=== PATIENT | male | born 1970 | race Caucasian/White ===

== ENCOUNTER 2016-08-14 08:36 | Inpatient (IN) | payer BC, OTHER ==
[2016-08-14] MEDS ORDERED: ONDANSETRON 4 MG/2 ML VIAL IVP STA (09:11)
[2016-08-14] MEDS ORDERED: SODIUM CHLORIDE 0.9% 2,000 ML IV STA (09:11)
--- NOTE | 2016-08-14 09:28 | ED ---
Nausea/Vomiting/Diarrhea HPI - General Chief complaint: Nausea/Vomiting/Diarrhea Stated complaint: vomiting, pain in chest Time Seen by Provider: 08/14/16 09:07 Source: patient, RN notes reviewed Mode of arrival: ambulatory Limitations: no limitations - History of Present Illness Initial comments: 46-year-old male presents emergency Department chief complaints of nausea vomiting abdominal pain, chest pressure. Patient states that he has been getting sick daily for the last few months but states over the last few days it has severely progressively has severe right-sided abdominal pain. He also noticed the pressure in his chest but states it seems to be exacerbated by his vomiting. Patient denies any hematemesis or coffee-ground emesis. Patient states he drinks approximately 1 pint per day for the last 6 months. Patient states he was sober prior to that for over a year. Patient states that he has not seen her primary care physician for any of his health problems as he only recently got his insurance. Patient denies any dysuria or hematuria though he states his urine is very dark. Patient said no prior abdominal surgeries and has no cardiac history. - Related Data Home Medications Medication Instructions Recorded Confirmed No Known Home Medications [No 08/14/16 08/14/16 Known Home Medications] Allergies Allergy/AdvReac Type Severity Reaction Status Date / Time bupropion HCl Allergy Unknown Verified 08/14/16 09:41 [From Wellbutrin] Penicillins Allergy Unknown Verified 08/14/16 09:41 Childhood Review of Systems ROS Statement: Those systems with pertinent positive or pertinent negative responses have been documented in the HPI. ROS Other: All systems not noted in ROS Statement are negative. Past Medical History Past Medical History: No Reported History History of Any Multi-Drug Resistant Organisms: None Reported Past Surgical History: Hernia Repair Past Psychological History: Anxiety, Depression Smoking Status: Current every day smoker Past Alcohol Use History: Daily, Heavy Past Drug Use History: None Reported General Exam Limitations: no limitations General appearance: alert, in no apparent distress Eye exam: Present: normal appearance, PERRL, EOMI. Absent: scleral icterus, conjunctival injection, periorbital swelling ENT exam: Present: normal exam, normal oropharynx, mucous membranes moist, TM's normal bilaterally, normal external ear exam Neck exam: Present: normal inspection. Absent: tenderness, meningismus, lymphadenopathy Respiratory exam: Present: normal lung sounds bilaterally. Absent: respiratory distress, wheezes, rales, rhonchi, stridor, chest wall tenderness Cardiovascular Exam: Present: regular rate, normal rhythm, normal heart sounds. Absent: systolic murmur, diastolic murmur, rubs, gallop, clicks GI/Abdominal exam: Present: soft, tenderness (Moderate right-sided abdominal tenderness), normal bowel sounds, organomegaly (Hepatomegaly ). Absent: distended, guarding, rebound, rigid Back exam: Absent: CVA tenderness (R), CVA tenderness (L) Neurological exam: Present: alert, oriented X3, CN II-XII intact Skin exam: Present: warm, dry, intact, normal color. Absent: rash Course Vital Signs 08/14/16 08/14/16 08:57 09:22 Temperature 98.3 F Pulse Rate 116 H 105 H Respiratory 18 18 Rate Blood Pressure 129/86 152/98 O2 Sat by Pulse 98 98 Oximetry Medical Decision Making - Lab Data Result diagrams: 08/14/16 09:08 08/14/16 09:08 Lab Results 08/14/16 08/14/16 08/14/16 Range/Units 09:08 09:08 09:08 WBC 8.7 (3.8-10.6) k/uL RBC 4.15 L (4.30-5.90) m/uL Hgb 15.5 (13.0-17.5) gm/dL Hct 45.9 (39.0-53.0) % MCV 110.7 H (80.0-100.0) fL MCH 37.4 H (25.0-35.0) pg MCHC 33.8 (31.0-37.0) g/dL RDW 14.7 (11.5-15.5) % Plt Count 138 L (150-450) k/uL Neutrophils % 78 % Lymphocytes % 12 % Monocytes % 7 % Eosinophils % 1 % Basophils % 1 % Neutrophils # 6.7 (1.3-7.7) k/uL Lymphocytes # 1.0 (1.0-4.8) k/uL Monocytes # 0.6 (0-1.0) k/uL Eosinophils # 0.1 (0-0.7) k/uL Basophils # 0.1 (0-0.2) k/uL Macrocytosis Marked Sodium 138 (137-145) mmol/L Potassium 3.6 (3.5-5.1) mmol/L Chloride 91 L (98-107) mmol/L Carbon Dioxide 18 L (22-30) mmol/L Anion Gap 29 mmol/L BUN 9 (9-20) mg/dL Creatinine 0.68 (0.66-1.25) mg/dL Est GFR (MDRD) Af Amer >60 (>60 ml/min/1.73 sqM) Est GFR (MDRD) Non-Af >60 (>60 ml/min/1.73 sqM) Glucose 123 H (74-99) mg/dL Calcium 9.7 (8.4-10.2) mg/dL Magnesium 1.7 (1.6-2.3) mg/dL Total Bilirubin 7.4 H (0.2-1.3) mg/dL AST 214 H (17-59) U/L ALT 112 H (21-72) U/L Alkaline Phosphatase 225 H (38-126) U/L Troponin I <0.012 (0.000-0.034) ng/mL Total Protein 8.7 H (6.3-8.2) g/dL Albumin 5.1 H (3.5-5.0) g/dL Amylase 73 (30-110) U/L Lipase 114 (23-300) U/L Urine Color Urine Appearance (Clear) Urine pH (5.0-8.0) Ur Specific [place] (1.001-1.035) Urine Protein (Negative) Urine Glucose (UA) (Negative) Urine Ketones (Negative) Urine Blood (Negative) Urine Nitrite (Negative) Urine Bilirubin (Negative) Urine Urobilinogen (<2.0) mg/dL Ur Leukocyte Esterase (Negative) Urine WBC (0-5) /hpf Ur Squamous Epith Cells (0-4) /hpf Urine Bacteria (None) /hpf Hyaline Casts (0-2) /lpf Urine Mucus (None) /hpf Serum Alcohol <10 mg/dL 08/14/16 Range/Units 09:08 WBC (3.8-10.6) k/uL RBC (4.30-5.90) m/uL Hgb (13.0-17.5) gm/dL Hct (39.0-53.0) % MCV (80.0-100.0) fL MCH (25.0-35.0) pg MCHC (31.0-37.0) g/dL RDW (11.5-15.5) % Plt Count (150-450) k/uL Neutrophils % % Lymphocytes % % Monocytes % % Eosinophils % % Basophils % % Neutrophils # (1.3-7.7) k/uL Lymphocytes # (1.0-4.8) k/uL Monocytes # (0-1.0) k/uL Eosinophils # (0-0.7) k/uL Basophils # (0-0.2) k/uL Macrocytosis Sodium (137-145) mmol/L Potassium (3.5-5.1) mmol/L Chloride (98-107) mmol/L Carbon Dioxide (22-30) mmol/L Anion Gap mmol/L BUN (9-20) mg/dL Creatinine (0.66-1.25) mg/dL Est GFR (MDRD) Af Amer (>60 ml/min/1.73 sqM) Est GFR (MDRD) Non-Af (>60 ml/min/1.73 sqM) Glucose (74-99) mg/dL Calcium (8.4-10.2) mg/dL Magnesium (1.6-2.3) mg/dL Total Bilirubin (0.2-1.3) mg/dL AST (17-59) U/L ALT (21-72) U/L Alkaline Phosphatase (38-126) U/L Troponin I (0.000-0.034) ng/mL Total Protein (6.3-8.2) g/dL Albumin (3.5-5.0) g/dL Amylase (30-110) U/L Lipase (23-300) U/L Urine Color Dark Brown Urine Appearance Clear (Clear) Urine pH 6.0 (5.0-8.0) Ur Specific [place] 1.024 (1.001-1.035) Urine Protein 1+ H (Negative) Urine Glucose (UA) Negative (Negative) Urine Ketones 4+ H (Negative) Urine Blood Negative (Negative) Urine Nitrite Negative (Negative) Urine Bilirubin 2+ H (Negative) Urine Urobilinogen 12.0 (<2.0) mg/dL Ur Leukocyte Esterase Negative (Negative) Urine WBC 2 (0-5) /hpf Ur Squamous Epith Cells <1 (0-4) /hpf Urine Bacteria Rare H (None) /hpf Hyaline Casts 61 H (0-2) /lpf Urine Mucus Few H (None) /hpf Serum Alcohol mg/dL Disposition Clinical Impression: Dehydration, Alcoholic hepatitis, Hyperbilirubinemia, Nausea & vomiting Disposition: ADMITTED IP TO THIS HOSP Condition: Fair Referrals: None,Stated [Primary Care Provider] - 1-2 days
[2016-08-14 09:35] LABS: Basophils # (A) 0.1 k/uL (0-0.2); Basophils % (A) 1 %; CH 37.7; CHCM 34.2; Eosinophils # (A) 0.1 k/uL (0-0.7); Eosinophils % (A) 1 %; HCT 45.9 % (39.0-53.0); HDW 2.07; HGB 15.5 gm/dL (13.0-17.5); Luc # (Auto) 0.13; Luc % (Auto) 2; Lymphocytes % (A) 12 %; MCH 37.4 pg (25.0-35.0); MCHC 33.8 g/dL (31.0-37.0); MCV 110.7 fL (80.0-100.0); Macrocytosis Marked; Mean Platelet Volume 8.4; Monocytes # (A) 0.6 k/uL (0-1.0); Monocytes % (A) 7 %; Neutrophils # (A) 6.7 k/uL (1.3-7.7); Neutrophils % (A) 78 %; RBC 4.15 m/uL (4.30-5.90); RDW 14.7 % (11.5-15.5); WBC 8.7 k/uL (3.8-10.6); WBC (Perox) 8.55
[2016-08-14 09:48] LABS: ALT 112 U/L (21-72); AST 214 U/L (17-59); Alcohol <10 mg/dL; Alkaline Phosphatase 225 U/L (38-126); Amylase 73 U/L (30-110); Anion Gap 29 mmol/L; Appearance,Urine Clear (Clear); Bacteria,Urine Rare /hpf; Bilirubin,Urine 2+ (Negative); Blood Urea Nitrogen 9 mg/dL (9-20); Calcium 9.7 mg/dL (8.4-10.2); Carbon Dioxide 18 mmol/L (22-30); Chloride 91 mmol/L (98-107); Glucose 123 mg/dL (74-99); Glucose,Urine (UA) Negative (Negative); Ketones,Urine 4+ (Negative); Leukocyte Esterase,Urine Negative (Negative); Magnesium 1.7 mg/dL (1.6-2.3); Mucus,Urine Few /hpf; Nitrite,Urine Negative (Negative); Non-African American GFR(MDRD) >60 (>60 ml/min/1.73 sqM); Particle Count 5565; Potassium 3.6 mmol/L (3.5-5.1); Protein,Urine 1+ (Negative); Sodium 138 mmol/L (137-145); Specific Gravity,Urine 1.024 (1.001-1.035); Squamous Epithelial Cell,Urine <1 /hpf (0-4); Total Bilirubin 7.4 mg/dL (0.2-1.3); Total Protein 8.7 g/dL (6.3-8.2); UA Billing (MACRO vs. MICRO) MICRO; WBC,Urine 2 /hpf (0-5)
--- NOTE | 2016-08-14 09:48 | XR ---
EXAMINATION TYPE: XR chest 2V DATE OF EXAM: 08/14/2016 COMPARISON: Chest x-ray July 05, 2015. HISTORY: Chest pain with nausea and vomiting. TECHNIQUE: Frontal and lateral views of the chest are obtained. FINDINGS: There is no focal air space opacity, pleural effusion, or pneumothorax seen. The cardiac silhouette size is within normal limits. The osseous structures are intact. IMPRESSION: No acute cardiopulmonary process. No significant change from prior.
--- NOTE | 2016-08-14 09:49 | XR ---
EXAMINATION TYPE: XR KUB DATE OF EXAM: 08/14/2016 CLINICAL HISTORY: Abdominal pain with nausea and vomiting for 6 months. TECHNIQUE: 3 upright KUB images of the abdomen are obtained COMPARISON: None. FINDINGS: There is some paucity of bowel gas. Gas is seen in nondistended stomach. Gas is seen in sli ghtly prominent but not suspiciously distended small bowel loops in the mid to lower abdomen. Additio nal gas is seen in nondistended colonic loops in the periphery of the pelvis. No pneumoperitoneum is identified. No suspicious calcifications are seen. Visualized osseous structures are intact. IMPRESSION: Overall nonspecific but favor nonobstructive bowel gas pattern.
--- NOTE | 2016-08-14 11:09 | US ---
EXAMINATION TYPE: US abdomen limited DATE OF EXAM: 08/14/2016 COMPARISON: NONE CLINICAL HISTORY: Pain, Nausea/vomiting x 2 weeks. Chest pain.. EXAM MEASUREMENTS: Liver Length: 19.6 cm Gallbladder Wall: 0.1 cm CBD: 0.4 cm Right Kidney: 11.8 x 5.6 x 4.6 cm Pancreas: wnl, tail obscured by bowel gas Liver: hyperechoic, heterogeneous. Partially obscured by bowel gas causing sub optimal visualization overall. Gallbladder: wnl Evidence for sonographic Daniel's sign: no CBD: wnl Right Kidney: wnl Visualized pancreas is heterogeneous without worrisome mass or ductal dilatation. Visualized liver is heterogeneously hyperechoic in appearance without intrahepatic ductal dilatation. Evaluation for foc al masses suboptimal due to the heterogeneity. Finding likely on basis of diffuse fatty infiltration. Gallbladder appears within normal limits. IMPRESSION: No gallstones or ultrasound evidence for acute cholecystitis.
[2016-08-14] MEDS ORDERED: PANTOPRAZOLE 40 MG/10 ML VIAL IVP STA (12:33)
[2016-08-14] MEDS ORDERED: LORazepam 2 MG/ML SYRINGE IV PRN ×3 (12:36)
[2016-08-14] MEDS ORDERED: NALOXONE 0.4 MG/ML 1 ML VIAL IV PRN (12:37)
[2016-08-14] MEDS ORDERED: ONDANSETRON 4 MG/2 ML VIAL IVP PRN (12:37)
[2016-08-14] MEDS ORDERED: SODIUM CHLORIDE 0.9% 1,000 ML with MVI, ADULT NO.4 WITH VIT K 10 ML, THIAMINE 100 MG, F... IV ONE ×4 (12:45)
[2016-08-14 16:55] LABS: INR 1.3 (<1.1); Prothrombin Time 12.8 sec (9.0-12.0)
[2016-08-14] MEDS: THIAMINE 100 MG TAB PO SCH (17:12)
[2016-08-14] MEDS: NICOTINE 21MG/24HR PATCH TRANSDERM SCH (17:13)
[2016-08-14 17:19] LABS: Hepatitis B Surface Ag Index 0.06
[2016-08-14 17:24] LABS: Hepatitis B Core IgM Index 0.02
[2016-08-14 17:36] LABS: Hepatitis C Virus IgG Ab Negative (Negative); Hepatitis C Virus IgG Index 0.01
[2016-08-14] MEDS: SODIUM CHLORIDE 0.9% 1,000 ML IV SCH ×2 (18:33→23:28)
[2016-08-14] MEDS: PANTOPRAZOLE 40 MG/10 ML VIAL IVP SCH (21:52)
--- NOTE | 2016-08-14 22:55 | HP ---
DATE OF ADMISSION: 08/14/2016 46-year-old came in with nausea, vomiting, abdominal pain with coffee-ground emesis. Patient's last alcoholic drink was a couple days ago. Does drink every day one pint of vodka every day. Patient is complaining of epigastric abdominal pain and burning sensation. Patient apparently complained of right-sided abdominal pain for which ultrasound of the abdomen was obtained which did not show any nephrolithiasis. Patient is willing to quit alcohol and patient is admitted for alcohol withdrawal. Patient is on Protonix IV b.i.d. Patient probably has severe alcoholic gastritis and alcoholic hepatitis. Patient denied any fever, chills, the patient denied any nausea, vomiting and denied any diarrhea. REVIEW OF SYSTEMS: GENERAL: The patient has been shaking since his last drink was a couple days ago. Patient is undergoing withdrawals at this point of time, quite weak. HEENT: No recent visual problems or hearing problems. Denied any sore throat. CARDIOVASCULAR: No chest pain, orthopnea, PND, no palpitations, no syncope. PULMONARY: No shortness of breath, no cough, no hemoptysis. GASTROINTESTINAL: As described in history of present illness. NEUROLOGICAL: No headaches, no weakness, no numbness. HEMATOLOGICAL: Denies any bleeding or petechiae. GENITOURINARY: Denies any burning micturition, frequency, or urgency. MUSCULOSKELETAL/RHEUMATOLOGICAL: Denies any joint pain, swelling, or any muscle pain. ENDOCRINE: Denies any polyuria or polydipsia. The rest of the 14 point review of systems is negative. HOME MEDICATIONS: None. ALLERGIES: ALLERGY TO BUPROPION AND PENICILLINS. PAST MEDICAL HISTORY: Hernia repair and patient does smoke 1 pack per day. Anxiety, depression. Patient does drink 1 pint of alcohol as mentioned above. Denied any IV drug use. FAMILY HISTORY: Significant for hypertension. PHYSICAL EXAMINATION: Temperature 97.3, pulse of 99, respiratory rate of 18, blood pressure is 107/56, saturating at 98% on room air. GENERAL: The patient is tremulous, alert and oriented x3, able to give me a good history. HEENT: Pupils are round and equally reacting to light. EOMI. Patient has significant scleral icterus. No conjunctival pallor. Normocephalic, atraumatic. No pharyngeal erythema. No thyromegaly. CARDIOVASCULAR: S1 and S2 present. No murmurs, rubs, or gallops. PULMONARY: Chest is clear to auscultation, no wheezing or crackles. ABDOMEN: Soft, nontender, nondistended, normoactive bowel sounds. No palpable organomegaly. MUSCULOSKELETAL: No joint swelling or deformity. EXTREMITIES: No cyanosis, clubbing, or pedal edema. NEUROLOGICAL: Gross neurological examination did not reveal any focal deficits. SKIN: No rashes. LABORATORY DATA: CBC, CMP are abnormal for elevated MCV of 110.7 secondary to alcoholism. Bicarbonate of 18. Anion gap of 10 and we will obtain lactic acid level and elevated bilirubin of 7.4, AST is 214, ALT is 112. Alkaline phosphatase 225. UA 1+ protein, 4+ ketones, 2+ bilirubin and I do not believe patient does not have any UTI symptoms. ASSESSMENT AND PLAN: 1. Acute alcoholic hepatitis. We are leading to elevated bilirubin. Will repeat comprehensive metabolic profile tomorrow again and it is expected to improve once he quits alcohol. Patient is willing to quit alcohol. His alcohol ( ) a couple days ago. 2. Alcohol withdrawal. Patient will be on Ativan/CIWA protocol, thiamine, multivitamin supplementation. 3. Anion gap metabolic acidosis secondary to ( ) of alcohol and can have lactic acidosis too from his severe intravascular depletion, will obtain lactic acid level. 4. Elevated MCV secondary to alcoholism. 5. Alcoholic gastritis leading to possible hematemesis. My suspicion is low that patient has esophageal varices since he does not have any stigmata of alcoholic cirrhosis. We will obtain INR level. 6. Nicotine abuse, counseling was provided. 7. Hyperbilirubinemia secondary to acute alcoholic hepatitis. PLAN: As mentioned above. Patient will be on 125 mL of normal saline.
[2016-08-15] MEDS: SODIUM CHLORIDE 0.9% 1,000 ML IV SCH ×3 (08:00→23:03)
[2016-08-15] MEDS: NICOTINE 21MG/24HR PATCH TRANSDERM SCH (08:08)
[2016-08-15] MEDS: PANTOPRAZOLE 40 MG/10 ML VIAL IVP SCH ×2 (08:08→20:21)
[2016-08-15 08:25] LABS: CH 37.5; CHCM 33.9; HCT 35.7 % (39.0-53.0); HDW 2.05; MCH 36.5 pg (25.0-35.0); MCHC 32.9 g/dL (31.0-37.0); MCV 110.9 fL (80.0-100.0); Macrocytosis Marked; Mean Platelet Volume 8.7; RBC 3.22 m/uL (4.30-5.90); RDW 14.5 % (11.5-15.5); WBC 3.7 k/uL (3.8-10.6)
[2016-08-15 08:32] LABS: HGB 11.8 gm/dL (13.0-17.5)
[2016-08-15 08:40] LABS: ALT 76 U/L (21-72); AST 145 U/L (17-59); Alkaline Phosphatase 136 U/L (38-126); Anion Gap 10 mmol/L; Blood Urea Nitrogen 9 mg/dL (9-20); Calcium 8.3 mg/dL (8.4-10.2); Carbon Dioxide 25 mmol/L (22-30); Chloride 101 mmol/L (98-107); Glucose 103 mg/dL (74-99); Non-African American GFR(MDRD) >60 (>60 ml/min/1.73 sqM); Potassium 3.1 mmol/L (3.5-5.1); Sodium 136 mmol/L (137-145)
[2016-08-15] MEDS ORDERED: NICOTINE 21MG/24HR PATCH TRANSDERM SCH (09:00)
--- NOTE | 2016-08-15 10:06 | P.CONS ---
History of Present Illness - Reason for Consult Consult date: 08/15/16 Hepatitis Requesting physician: Horacio Holman - History of Present Illness 46-year-old male admitted with nausea vomiting abdominal pain. Patient has a history of EtOH abuse drinks vodka daily for several years. Last alcohol drink Sunday last week. Pain is mostly in the midepigastric region. No fever or chills. Denies coffee-ground emesis, gross hematochezia or melena. Patient presented himself to the hospital for alcohol withdrawal monitoring. Patient verbalized he is going to try to make efforts to quit drinking. Admission hemoglobin 15.5. MCV 110. Platelet 138. INR 1.3. BUN 9. Creatinine 0.6. Hemoglobin today 11.8. Total bilirubin 7.4. AST 214. ALT 112. Alkaline phosphates to 25. Lipase 114. Amylase 73. No history of IVDA. Hepatitis panel negative. Admission Serum alcohol level less than 10. Abdominal ultrasound no gallstones. CBD 0.4 cm. No focal liver lesion or intrahepatic ductal dilatation. Review of Systems Constitutional: Denies fever, chills, sweats, weight gain, or loss. HEENT: Negative for migraines, blurred vision or loss, earaches, drainage, tinnitus, oral mucosal lesions, dysphagia, or odynophagia. Cardiac: Negative for chest pain, arrhythmias, or palpitation. Respiratory: Negative for shortness of breath, hemoptysis, cough, or sputum production. Gastrointestinal: See HPI for pertinent findings. Genitourinary: Negative for hematuria, urgency, frequency, polyuria, dysuria, or penile discharge. Musculoskeletal: Negative for muscle aches, swelling, arthritis, and arthralgias. Neurologic: Seizures as . Negative for stroke or TIA. Endocrine: Negative for thyroid problems. Skin: Negative for rash or itching. Psychiatric: History of depression and anxiety All systems: negative (See HPI) Past Medical History Past Medical History: No Reported History Additional Past Medical History / Comment(s): HAD SEIZURES WHEN BABY STATED HE TOOK MEDS TILL ABOUT AGE 6-NO SERVICE SINCE. History of Any Multi-Drug Resistant Organisms: None Reported Past Surgical History: Hernia Repair Additional Past Surgical History / Comment(s): RT INGUINAL HERNIA REPAIR Past Anesthesia/Blood Transfusion Reactions: No Reported Reaction Additional Past Anesthesia/Blood Transfusion Reaction / Comm: CLAUSTERPHOBIA Past Psychological History: Anxiety, Depression Additional Psychological History / Comment(s): 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 NO PETS. NO SERVICE IN PAST. 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 NO HOME CARES SERVICES, NO MEDICAL EQUIPMENT EXCEPT FOR BP MONITOR. Smoking Status: Current every day smoker Past Alcohol Use History: Daily, Heavy Additional Past Alcohol Use History / Comment(s): PT ADMITS TO CONSUMING A PINT OF VODKA PER DAY. STARTED SMOKING AT AGE 17, SMOKES 1PPD. Past Drug Use History: None Reported - Past Family History Mother Family Medical History: Hypertension Father Family Medical History: No Reported History Medications and Allergies Home Medications Medication Instructions Recorded Confirmed Type No Known Home Medications [No 08/14/16 08/14/16 History Known Home Medications] Allergies Allergy/AdvReac Type Severity Reaction Status Date / Time bupropion HCl Allergy Unknown Verified 08/14/16 09:41 [From Wellbutrin] Penicillins Allergy Unknown Verified 08/14/16 09:41 Childhood Physical Exam Vitals: Vital Signs Temp Pulse Pulse Resp BP BP Pulse Ox 08/15/16 07:00 98.3 F 91 16 126/81 98 08/14/16 23:00 98.9 F 95 16 130/84 97 08/14/16 15:52 89 18 08/14/16 15:00 89 18 08/14/16 14:40 99.3 F 89 18 141/90 98 08/14/16 13:29 98 F 99 18 107/56 08/14/16 09:22 105 H 18 152/98 98 08/14/16 08:57 98.3 F 116 H 18 129/86 98 Intake and Output 08/14/16 08/15/16 08/15/16 22:59 06:59 14:59 Other: # Voids 1 1 Weight 71.668 kg General appearance: The patient is alert, oriented, in no acute distress. Jaundice. HET: Head is normocephalic and atraumatic. Pupils are equal and reactive. Sclerae icterus. Oropharynx is clear without lesions. Neck: Supple without lymphadenopathy. Trachea midline. Heart: S1 S2. Regular rate and rhythm. Lungs: No crackles or wheezes are heard. Abdomen: Soft, midepigastric tenderness, nondistended with bowel sounds. No peritoneal signs. No palpable organomegaly or masses. Extremities: Normal skin color and turgor. No cyanosis, rash, ulceration, clubbing, or edema. Radial and pedal pulses are 2/4 bilaterally. Neurological: No focal deficits. Strength and sensation are grossly intact. Results CBC & Chem 7: 08/15/16 07:47 08/15/16 07:47 Labs: Abnormal Lab Results - Last 24 Hours (Table) 08/14/16 08/14/16 08/14/16 Range/Units 09:08 09:08 09:08 WBC (3.8-10.6) k/uL RBC 4.15 L (4.30-5.90) m/uL Hgb (13.0-17.5) gm/dL Hct (39.0-53.0) % MCV 110.7 H (80.0-100.0) fL MCH 37.4 H (25.0-35.0) pg Plt Count 138 L (150-450) k/uL PT (9.0-12.0) sec Chloride 91 L (98-107) mmol/L Carbon Dioxide 18 L (22-30) mmol/L Glucose 123 H (74-99) mg/dL Total Bilirubin 7.4 H (0.2-1.3) mg/dL AST 214 H (17-59) U/L ALT 112 H (21-72) U/L Alkaline Phosphatase 225 H (38-126) U/L Total Protein 8.7 H (6.3-8.2) g/dL Albumin 5.1 H (3.5-5.0) g/dL Urine Protein 1+ H (Negative) Urine Ketones 4+ H (Negative) Urine Bilirubin 2+ H (Negative) Urine Bacteria Rare H (None) /hpf Hyaline Casts 61 H (0-2) /lpf Urine Mucus Few H (None) /hpf 08/14/16 08/15/16 Range/Units 16:17 07:47 WBC 3.7 L (3.8-10.6) k/uL RBC 3.22 L (4.30-5.90) m/uL Hgb 11.8 L D (13.0-17.5) gm/dL Hct 35.7 L (39.0-53.0) % MCV 110.9 H (80.0-100.0) fL MCH 36.5 H (25.0-35.0) pg Plt Count (150-450) k/uL PT 12.8 H (9.0-12.0) sec Chloride (98-107) mmol/L Carbon Dioxide (22-30) mmol/L Glucose (74-99) mg/dL Total Bilirubin (0.2-1.3) mg/dL AST (17-59) U/L ALT (21-72) U/L Alkaline Phosphatase (38-126) U/L Total Protein (6.3-8.2) g/dL Albumin (3.5-5.0) g/dL Urine Protein (Negative) Urine Ketones (Negative) Urine Bilirubin (Negative) Urine Bacteria (None) /hpf Hyaline Casts (0-2) /lpf Urine Mucus (None) /hpf US - abdomen: report reviewed (Dr. Sosa) Assessment and Plan (1) Alcoholic hepatitis Status: Acute (2) EtOH dependence Status: Acute (3) Macrocytosis Status: Acute Plan: 1. Protonix 40 mg IV twice daily. 2. Alcohol abstinence strongly advised. Consider prednisone 40 mg daily for treatment of acute alcohol hepatitis however patient has to make a commitment to quit drinking otherwise prednisone would not be beneficial. 3. Clear liquid diet slow advancement. Observe. Upper endoscopy contingent on clinical course. Discharge per medicine. Follow up in GI office in 7-10 days for reevaluation with outpatient CMP in 3-5 days. Thank you for this kind referral and the opportunity to participate in the care of your patient. This consultation was discussed with Dr. Sosa. The impression and plan of care have been directed as dictated.
[2016-08-15] MEDS ORDERED: Potassium Replacement Protocol 1 EACH MISC MISCELLANE PRN (11:10)
[2016-08-15] MEDS: POTASSIUM CHLORIDE ER 20 MEQ TAB.ER PO SCH ×2 (11:57→14:07)
[2016-08-15] MEDS: THIAMINE 100 MG TAB PO SCH ×2 (11:57→17:42)
[2016-08-15] MEDS ORDERED: THIAMINE 100 MG TAB PO SCH (12:00)
[2016-08-15 13:29] VITALS: BMI 23.3
--- NOTE | 2016-08-15 15:54 | P.PN ---
Subjective Date of service 08/15/2016. Progress note being dictated for Dr. Santoro. Interval history: This is a 46-year-old gentleman admitted with acute alcoholic hepatitis, possibly severe alcoholic gastritis and multiple other medical issues. Maintained on IV fluid hydration, CIWA protocol, still shaky. Complains of mid epigastric tenderness, maintained on Protonix twice a day Potassium 3.1, magnesium 1.7, currently being supplemented per replacement protocols. Platelets 74. Bili and LFTs improving. Abdominal ultrasound reporting no gallstones or evidence for acute cholecystitis Fair Diet intake of clear liquids. Ambulating with assistance. Evaluated by GI with recommendations noted. Review of systems: HEENT: Denies headache or focal deficits. Denies any dizziness or lightheadedness. Shaky. Respiratory: Denies any increased shortness of breath. Denies cough or hemoptysis Cardiac: Denies any chest pain, palpitations. GI: Denies any nausea, vomiting, or diarrhea. Denies hematemesis, coffee- ground emesis, or bloody stools. Positive abdominal tenderness. : Denies any dysuria, urgency or frequency. Psychiatry: Denies any anxiety or depression. Active Medications Sodium Chloride (Saline 0.9%) 1,000 mls @ 125 mls/hr IV .Q8H [facility] Last Admin: 08/15/16 15:11 Dose: 125 mls/hr Lorazepam (Ativan) 1 mg IV Q2HR PRN PRN Reason: CIWA 8 or 9 Last Admin: 08/14/16 20:51 Dose: 1 mg Lorazepam (Ativan) 1 mg IV Q1HR PRN PRN Reason: CIWA 10 to 15 Lorazepam (Ativan) 2 mg IV Q1HR PRN PRN Reason: CIWA 16 or higher Miscellaneous Information (Potassium Per Protocol) 1 each MISCELLANE DAILY PRN ; Protocol PRN Reason: Per Protocol Naloxone HCl (Narcan) 0.2 mg IV Q2M PRN PRN Reason: Opioid Reversal Nicotine (Habitrol 21mg/24hr Patch) 1 patch TRANSDERM DAILY [facility] Last Admin: 08/15/16 08:08 Dose: 1 patch Ondansetron HCl (Zofran) 4 mg IVP Q8HR PRN PRN Reason: Nausea And Vomiting Pantoprazole Sodium (Protonix) 40 mg IVP BID [facility] Last Admin: 08/15/16 08:08 Dose: 40 mg Thiamine HCl (Vitamin B-1) 100 mg PO BID@1200,1700 [facility]ST Last Admin: 08/15/16 11:57 Dose: 100 mg Objective - Vital Signs Vital signs: Vital Signs Temp 99.2 F 08/15/16 14:41 Pulse 94 08/15/16 14:41 Resp 16 08/15/16 14:41 BP 121/68 08/15/16 14:41 Pulse Ox 98 08/15/16 14:41 Intake & Output 08/14/16 08/15/16 08/15/16 18:59 06:59 18:59 Intake Total 320 Balance 320 Weight 71.668 kg 71.668 kg Intake: Oral 320 Other: # Voids 1 2 - Exam PHYSICAL EXAM: VITAL SIGNS: As above GENERAL: [Sitting up in bed, no acute distress, jaundiced with scleral icterus] HEENT: [Pupils equal ,conjunctiva normal.] NECK: [Supple, no JVD] RESPIRATORY EFFORT:[ Normal] LUNGS: [Diminished, no wheezes rhonchi or crackles] CARDIOVASCULAR[ regular S1-S2, no murmurs rubs or gallops] GI: [Abdomen soft, mid epigastric tenderness, hepatomegaly, positive bowel sounds. PSYCH: [Alert and oriented -3, mood and affect normal.] NEURO: Gross neurological examination did not reveal any focal deficits. Moves all 4 extremities, strength and sensation grossly intact. - Labs CBC & Chem 7: 08/15/16 07:47 08/15/16 07:47 Labs: Abnormal Lab Results - Last 24 Hours (Table) 08/14/16 08/15/16 08/15/16 Range/Units 16:17 07:47 07:47 WBC 3.7 L (3.8-10.6) k/uL RBC 3.22 L (4.30-5.90) m/uL Hgb 11.8 L D (13.0-17.5) gm/dL Hct 35.7 L (39.0-53.0) % MCV 110.9 H (80.0-100.0) fL MCH 36.5 H (25.0-35.0) pg Plt Count 74 L (150-450) k/uL PT 12.8 H (9.0-12.0) sec Sodium 136 L (137-145) mmol/L Potassium 3.1 L (3.5-5.1) mmol/L Creatinine 0.58 L (0.66-1.25) mg/dL Glucose 103 H (74-99) mg/dL Calcium 8.3 L (8.4-10.2) mg/dL Total Bilirubin 6.0 H (0.2-1.3) mg/dL AST 145 H (17-59) U/L ALT 76 H (21-72) U/L Alkaline Phosphatase 136 H (38-126) U/L Total Protein 6.0 L (6.3-8.2) g/dL Albumin 3.2 L (3.5-5.0) g/dL Assessment and Plan Plan: 1. [ Acute alcoholic hepatitis in a patient with alcohol dependence]. 2. [ Hyperbilirubinemia, secondary to acute alcoholic hepatitis improving]. 3. [ Acute alcoholic DTs]. 4. [ Anion gap Metabolic acidosis]. 5. Elevated MCV secondary to alcohol and[]. 6. [ Alcoholic gastritis, possible hematemesis, low suspicion of esophageal varices]. 7. [ Ongoing nicotine abuse]. Plan: Continue on current medication regime ,PPI, monitoring and symptomatic treatment. MVI, folic acid and thiamine added to med regime. The joint replacements per protocol with repeat follow-up labs this afternoon. Close monitoring of electrolytes, coags with repeat labs ordered for a.m.. Follow closely with GI. Smoking and alcohol cessation readdressed .Discharge planning in progress for tomorrow. The impression and plan of care has been dictated as directed. : I performed a H&P examination of this patient and discussed the same with the dictator. I agree with the dictator's note. Any additional findings/opinions/ etc. will be noted.
[2016-08-15 16:24] LABS: Potassium 3.7 mmol/L (3.5-5.1)
[2016-08-15] MEDS: FOLIC ACID 1 MG TAB PO SCH (17:42)
[2016-08-15] MEDS ORDERED: LORazepam 1 MG TAB PO STA (20:28)
[2016-08-16 07:42] VITALS: BP 123/73; PULSE 95; RESP 20; TEMP 99.3
[2016-08-16] MEDS: PANTOPRAZOLE 40 MG/10 ML VIAL IVP SCH (07:50)
[2016-08-16] MEDS: NICOTINE 21MG/24HR PATCH TRANSDERM SCH (07:50)
[2016-08-16] MEDS: SODIUM CHLORIDE 0.9% 1,000 ML IV SCH (08:00)
[2016-08-16 08:11] LABS: Basophils % (A) 1 %; CH 37.2; CHCM 32.3; Eosinophils # (A) 0.2 k/uL (0-0.7); Eosinophils % (A) 5 %; HCT 37.5 % (39.0-53.0); HDW 2.08; HGB 12.2 gm/dL (13.0-17.5); Luc # (Auto) 0.09; Luc % (Auto) 2; Lymphocytes # (A) 0.8 k/uL (1.0-4.8); Lymphocytes % (A) 21 %; MCH 37.6 pg (25.0-35.0); MCHC 32.6 g/dL (31.0-37.0); MCV 115.5 fL (80.0-100.0); Macrocytosis Marked; Monocytes # (A) 0.2 k/uL (0-1.0); Monocytes % (A) 6 %; Neutrophils # (A) 2.5 k/uL (1.3-7.7); Neutrophils % (A) 64 %; RBC 3.25 m/uL (4.30-5.90); RDW 14.6 % (11.5-15.5); WBC 3.8 k/uL (3.8-10.6); WBC (Perox) 4.16
[2016-08-16 08:16] LABS: ALT 87 U/L (21-72); AST 154 U/L (17-59); Alkaline Phosphatase 124 U/L (38-126); Anion Gap 6 mmol/L; Blood Urea Nitrogen 5 mg/dL (9-20); Carbon Dioxide 26 mmol/L (22-30); Chloride 102 mmol/L (98-107); Glucose 101 mg/dL (74-99); Non-African American GFR(MDRD) >60 (>60 ml/min/1.73 sqM); Potassium 3.5 mmol/L (3.5-5.1); Sodium 134 mmol/L (137-145); Total Bilirubin 5.1 mg/dL (0.2-1.3); Total Protein 5.7 g/dL (6.3-8.2)
--- NOTE | 2016-08-16 09:29 | PN ---
DATE OF SERVICE: 08/15/2016 This is a 46-year-old gentleman admitted with acute alcohol hepatitis, is being closely monitored. The patient had delirium tremens also. Seen and evaluated the patient with the nurse practitioner. Please refer to the nurse practitioner's notes and impression documented as ascribed for further information. Further recommendations to follow.
--- NOTE | 2016-08-16 10:04 | P.PN ---
Subjective Principal diagnosis: ETOH hepatitis Admitted with ETOH hepatitis N/V without bleeding. Liver enzymes better. Feels better. Afebrile. Objective - Vital Signs Vital signs: Vital Signs Temp 99.3 F 08/16/16 07:00 Pulse 95 08/16/16 07:00 Resp 20 08/16/16 07:00 BP 123/73 08/16/16 07:00 Pulse Ox 99 08/16/16 07:00 Intake & Output 08/15/16 08/16/16 08/16/16 18:59 06:59 18:59 Intake Total 320 540 Balance 320 540 Weight 71.668 kg Intake: Oral 320 540 Other: # Voids 2 2 - Exam General appearance: The patient is alert, oriented, in no acute distress. Jaundice. HET: Head is normocephalic and atraumatic. Pupils are equal and reactive. Sclerae icterus. Oropharynx is clear without lesions. Neck: Supple without lymphadenopathy. Trachea midline. Heart: S1 S2. Regular rate and rhythm. Lungs: No crackles or wheezes are heard. Abdomen: Soft, midepigastric tenderness, nondistended with bowel sounds. No peritoneal signs. No palpable organomegaly or masses. Extremities: Normal skin color and turgor. No cyanosis, rash, ulceration, clubbing, or edema. Radial and pedal pulses are 2/4 bilaterally. Neurological: No focal deficits. Strength and sensation are grossly intact. - Labs CBC & Chem 7: 08/16/16 07:42 08/16/16 07:42 Labs: Abnormal Lab Results - Last 24 Hours (Table) 08/15/16 08/15/16 08/16/16 Range/Units 07:47 15:51 07:42 RBC 3.25 L (4.30-5.90) m/uL Hgb 12.2 L (13.0-17.5) gm/dL Hct 37.5 L (39.0-53.0) % MCV 115.5 H (80.0-100.0) fL MCH 37.6 H (25.0-35.0) pg Plt Count 74 L 75 L (150-450) k/uL Lymphocytes # 0.8 L (1.0-4.8) k/uL Sodium 135 L (137-145) mmol/L BUN (9-20) mg/dL Creatinine (0.66-1.25) mg/dL Glucose (74-99) mg/dL Calcium (8.4-10.2) mg/dL Total Bilirubin (0.2-1.3) mg/dL AST (17-59) U/L ALT (21-72) U/L Total Protein (6.3-8.2) g/dL Albumin (3.5-5.0) g/dL 08/16/16 Range/Units 07:42 RBC (4.30-5.90) m/uL Hgb (13.0-17.5) gm/dL Hct (39.0-53.0) % MCV (80.0-100.0) fL MCH (25.0-35.0) pg Plt Count (150-450) k/uL Lymphocytes # (1.0-4.8) k/uL Sodium 134 L (137-145) mmol/L BUN 5 L (9-20) mg/dL Creatinine 0.54 L (0.66-1.25) mg/dL Glucose 101 H (74-99) mg/dL Calcium 8.0 L (8.4-10.2) mg/dL Total Bilirubin 5.1 H (0.2-1.3) mg/dL AST 154 H (17-59) U/L ALT 87 H (21-72) U/L Total Protein 5.7 L (6.3-8.2) g/dL Albumin 3.0 L (3.5-5.0) g/dL Assessment and Plan (1) Alcoholic hepatitis Status: Acute (2) EtOH dependence Status: Acute (3) Macrocytosis Status: Acute (4) Alcoholic gastritis without bleeding Status: Acute Plan: 1. Agreeable for DC. 2. RTO 1-2 weeks with repeat outpatient labs; scripts provided. 3. ETOH abstinence. Assessment and plan of care discussed with Dr. Sosa.
[2016-08-16] MEDS: FOLIC ACID 1 MG TAB PO SCH (11:05)
[2016-08-16] MEDS: THIAMINE 100 MG TAB PO SCH (11:05)
[2016-08-16] MEDS ORDERED: MULTIVITAMINS, THERA 1 EACH TAB PO SCH (12:00)
--- NOTE | 2016-08-17 12:54 | DS ---
DATE OF ADMISSION: 08/14/2016 DATE OF DISCHARGE: 08/16/2016 FINAL DIAGNOSES: 1. Acute alcoholic hepatitis in a patient with alcohol dependence. 2. Hyperbilirubinemia secondary to acute alcoholic hepatitis. 3. Acute alcoholic daily interventional withdrawals. 4. Anion gap metabolic acidosis secondary to alcoholism. 5. Increased MCV secondary to alcohol. 6. Alcoholic gastritis with possible hematemesis and low suspicion of esophageal varices. 7. Continuing ongoing nicotine dependence. DISCHARGE DISPOSITION: The patient will be discharged in a stable condition with guarded prognosis. HISTORY OF PRESENT ILLNESS: This 46-year-old gentleman with a past medical history of multiple medical problems, acute alcoholic hepatitis and alcohol dependence. Patient had features of acute delirium tremens. The patient was monitored closely. On exam, vitals are stable. CARDIOVASCULAR: S1, S2. ABDOMEN: Soft. NERVOUS SYSTEM: No focal deficits. LABS: WBC is 3.8, hemoglobin is 12.1, MCV 115, sodium 134, total bilirubin is 5.1. AST is 154. ALT is 87, overall improving trends, possibly secondary to alcoholic hepatitis. Otherwise, acute hepatitis panel is negative. The patient will be discharged in a stable condition with guarded prognosis. Total time taken is 35 minutes. DISCHARGE ADVICE: 1. Diet is cardiac. 2. Activity limited until followup. 3. Follow up with Dr. Valladares as recommended, primary physician. 4. Follow up with Dr. Sosa as recommended. Medications are: 1. Ceftin 500 mg p.o. b.i.d. for 3 days. 2. Folic acid 1 mg p.o. daily. 3. Ativan 0.5 t.i.d. p.r.n. 4. Multivitamin 1 p.o. daily. 5. Habitrol 21 daily. 6. Thiamine 100 mg p.o. daily.
== END 2016-08-16 13:49 | disposition home or self-care (01) | DRG 433 ==
LOC: EC 08:36 → 4MS4W 13:03
PROVIDERS: ADMIT Internal Medicine; ATTEND Internal Medicine
PROC: HZ2ZZZZ Detoxification Services for Substance Abuse Treatment (ICD-10-PCS; principal; 2016-08-14)
DX: K70.10 Alcoholic hepatitis without ascites (principal); F10.231 Alcohol dependence with withdrawal delirium; E87.2 Acidosis; K29.20 Alcoholic gastritis without bleeding; E86.0 Dehydration; R00.0 Tachycardia, unspecified; D75.89 Other specified diseases of blood and blood-forming organs; F17.200 Nicotine dependence, unspecified, uncomplicated; F41.9 Anxiety disorder, unspecified; F32.9 Major depressive disorder, single episode, unspecified; Z88.0 Allergy status to penicillin; Z88.8 Allergy status to other drugs, medicaments and biological substances; Z86.69 Personal history of other diseases of the nervous system and sense organs; Z71.3 Dietary counseling and surveillance; Z82.49 Family history of ischemic heart disease and other diseases of the circulatory system; Z71.6 Tobacco abuse counseling; Z71.41 Alcohol abuse counseling and surveillance of alcoholic; Y90.0 Blood alcohol level of less than 20 mg/100 ml
CPT/HCPCS: 36415; 71020; 74000; 76705; 80051; 80053; 80074; 80320; 81001; 82150; 83605; 83690; 83735; 84484; 85025; 85027; 85610; 93005; 96361; 96374; 99285

== ENCOUNTER → 2016-08-18 | Outpatient (CLI) | payer SELFPAY ==
[2016-08-18 11:38] LABS: INR 1.3 (<1.1); Prothrombin Time 12.7 sec (9.0-12.0)
[2016-08-18 12:14] LABS: ALT 115 U/L (21-72); AST 170 U/L (17-59); Alkaline Phosphatase 176 U/L (38-126); Anion Gap 12 mmol/L; Blood Urea Nitrogen 10 mg/dL (9-20); Calcium 9.2 mg/dL (8.4-10.2); Carbon Dioxide 28 mmol/L (22-30); Chloride 99 mmol/L (98-107); Glucose 112 mg/dL (74-99); Non-African American GFR(MDRD) >60 (>60 ml/min/1.73 sqM); Potassium 3.8 mmol/L (3.5-5.1); Sodium 139 mmol/L (137-145); Total Bilirubin 4.4 mg/dL (0.2-1.3); Total Protein 6.9 g/dL (6.3-8.2)
== END | disposition home or self-care (01) ==
LOC: LABWHC1 10:59
PROVIDERS: ATTEND Nurse Practitioner
DX: K75.9 Inflammatory liver disease, unspecified (principal)
CPT/HCPCS: 36415; 80053; 85610

== ENCOUNTER 2017-03-14 12:58 | Emergency (ER) | payer OTHER, SELFPAY ==
[2017-03-14] MEDS ORDERED: LORazepam 2 MG/ML INJ IV STA (13:29)
[2017-03-14] MEDS ORDERED: SODIUM CHLORIDE 0.9% 1,000 ML IV ONE (13:29)
[2017-03-14] MEDS ORDERED: SODIUM CHLORIDE 0.9% 1,000 ML with MVI, ADULT NO.4 WITH VIT K 10 ML, THIAMINE 100 MG, F... IV ONE ×4 (13:29)
[2017-03-14] MEDS ORDERED: ONDANSETRON 4 MG/2 ML VIAL IVP STA (13:30)
--- NOTE | 2017-03-14 13:32 | ED ---
General Adult HPI - General Chief complaint: Chest Pain Stated complaint: Chest Pain Time Seen by Provider: 03/14/17 13:00 Source: patient, RN notes reviewed Mode of arrival: wheelchair Limitations: no limitations - History of Present Illness Initial comments: This is a 47-year-old male who presents emergency Department complaining that he is withdrawing from alcohol. Patient states he stopped drinking yesterday afternoon. Patient states she has the shakes and is nauseated. Patient states he did this in August and he had the same problem. Patient states his liver enzymes are elevated at that time so he was admitted to the hospital. Patient states he feels some chest tightness as well but no actual pain discomfort or pressure. Patient denies difficulty breathing or shortness of breath. Patient denies abdominal pain. Patient denies any diarrhea. Patient denies any recent fever chills cough. Patient denies lightheadedness or dizziness. - Related Data Home Medications Medication Instructions Recorded Confirmed DULoxetine HCL [Cymbalta] 30 mg PO BID 03/14/17 03/14/17 cloNIDine HCL [Catapres] 0.1 mg PO BID 03/14/17 03/14/17 Previous Rx's Medication Instructions Recorded Diazepam [Valium] 5 mg PO Q6H #10 tab 03/14/17 Ondansetron Odt [Zofran Odt] 4 mg PO Q8HR PRN #10 tab 03/14/17 Allergies Allergy/AdvReac Type Severity Reaction Status Date / Time bupropion HCl Allergy Rash/Hives Verified 03/14/17 13:39 [From Wellbutrin] Penicillins Allergy Unknown Verified 03/14/17 13:39 Childhood Review of Systems ROS Statement: Those systems with pertinent positive or pertinent negative responses have been documented in the HPI. ROS Other: All systems not noted in ROS Statement are negative. Past Medical History Past Medical History: No Reported History Additional Past Medical History / Comment(s): HAD SEIZURES WHEN BABY STATED HE TOOK MEDS TILL ABOUT AGE 6-NO SERVICE SINCE. History of Any Multi-Drug Resistant Organisms: None Reported Past Surgical History: Hernia Repair Additional Past Surgical History / Comment(s): RT INGUINAL HERNIA REPAIR Past Anesthesia/Blood Transfusion Reactions: No Reported Reaction Additional Past Anesthesia/Blood Transfusion Reaction / Comment(s): CLAUSTERPHOBIA Past Psychological History: Anxiety, Depression Smoking Status: Current every day smoker Past Alcohol Use History: Daily, Heavy Past Drug Use History: None Reported - Past Family History Mother Family Medical History: Hypertension Father Family Medical History: No Reported History General Exam - General Exam Comments Initial Comments: GENERAL: Patient is well-developed and well-nourished. Patient is nontoxic and well- hydrated and is in mild distress. ENT: Neck is soft and supple. No significant lymphadenopathy is noted. Oropharynx is clear. Moist mucous membranes. Neck has full range of motion without eliciting any pain. EYES: The sclera were anicteric and conjunctiva were pink and moist. Extraocular movements were intact and pupils were equal round and reactive to light. Eyelids were unremarkable. PULMONARY: Unlabored respirations. Good breath sounds bilaterally. No audible rales rhonchi or wheezing was noted. CARDIOVASCULAR: There is a regular rate and rhythm without any murmurs gallops or rubs. ABDOMEN: Soft and nontender with normal bowel sounds. No palpable organomegaly was noted. There is no palpable pulsatile mass. SKIN: Skin is clear with no lesions or rashes and otherwise unremarkable. NEUROLOGIC: Patient is alert and oriented x3. Cranial nerves II through XII are grossly intact. Motor and sensory are also intact. Normal speech, volume and content. Symmetrical smile. MUSCULOSKELETAL: Normal extremities with adequate strength and full range of motion. No lower extremity swelling or edema. No calf tenderness. LYMPHATICS: No significant lymphadenopathy is noted PSYCHIATRIC: Normal psychiatric evaluation. Normal interpersonal interactions appears functionally intact in deals appropriately with others. Patient is very anxious Limitations: no limitations Course Vital Signs 03/14/17 03/14/17 13:03 15:05 Temperature 97.7 F Pulse Rate 105 H 108 H Respiratory 18 18 Rate Blood Pressure 174/106 148/93 O2 Sat by Pulse 100 98 Oximetry Medical Decision Making - Medical Decision Making EKG shows normal sinus rhythm at 94 bpm IL interval is 166 dresses 98 QT interval 372 QTC is 465 per patient's EKG shows no ST segment elevation or depression or T wave abnormalities are noted. I will begin to the room to reevaluate the patient the patient was sleeping as stated he felt considerably better. Patient states she will follow-up at [place]. - Lab Data Result diagrams: 03/14/17 13:37 03/14/17 13:37 Lab Results 03/14/17 03/14/17 03/14/17 Range/Units 13:37 13:37 13:37 WBC 4.3 (3.8-10.6) k/uL RBC 4.35 (4.30-5.90) m/uL Hgb 15.0 (13.0-17.5) gm/dL Hct 44.2 (39.0-53.0) % MCV 101.6 H (80.0-100.0) fL MCH 34.4 (25.0-35.0) pg MCHC 33.9 (31.0-37.0) g/dL RDW 15.1 (11.5-15.5) % Plt Count 104 L (150-450) k/uL Neutrophils % 61 % Lymphocytes % 25 % Monocytes % 7 % Eosinophils % 4 % Basophils % 2 % Neutrophils # 2.6 (1.3-7.7) k/uL Lymphocytes # 1.1 (1.0-4.8) k/uL Monocytes # 0.3 (0-1.0) k/uL Eosinophils # 0.2 (0-0.7) k/uL Basophils # 0.1 (0-0.2) k/uL Macrocytosis Slight PT (9.0-12.0) sec INR (<1.2) APTT (22.0-30.0) sec Sodium 143 (137-145) mmol/L Potassium 3.8 (3.5-5.1) mmol/L Chloride 103 (98-107) mmol/L Carbon Dioxide 23 (22-30) mmol/L Anion Gap 17 mmol/L BUN 11 (9-20) mg/dL Creatinine 0.70 (0.66-1.25) mg/dL Est GFR (MDRD) Af Amer >60 (>60 ml/min/1.73 sqM) Est GFR (MDRD) Non-Af >60 (>60 ml/min/1.73 sqM) Glucose 139 H (74-99) mg/dL Calcium 9.8 (8.4-10.2) mg/dL Magnesium 1.7 (1.6-2.3) mg/dL Total Bilirubin 1.3 (0.2-1.3) mg/dL AST 403 H (17-59) U/L ALT 240 H (21-72) U/L Alkaline Phosphatase 97 (38-126) U/L Total Creatine Kinase 145 (55-170) U/L CK-MB (CK-2) 1.1 (0.0-2.4) ng/mL CK-MB (CK-2) Rel Index 0.8 Troponin I <0.012 (0.000-0.034) ng/mL Total Protein 7.6 (6.3-8.2) g/dL Albumin 4.8 (3.5-5.0) g/dL Serum Alcohol mg/dL 03/14/17 03/14/17 Range/Units 13:37 13:37 WBC (3.8-10.6) k/uL RBC (4.30-5.90) m/uL Hgb (13.0-17.5) gm/dL Hct (39.0-53.0) % MCV (80.0-100.0) fL MCH (25.0-35.0) pg MCHC (31.0-37.0) g/dL RDW (11.5-15.5) % Plt Count (150-450) k/uL Neutrophils % % Lymphocytes % % Monocytes % % Eosinophils % % Basophils % % Neutrophils # (1.3-7.7) k/uL Lymphocytes # (1.0-4.8) k/uL Monocytes # (0-1.0) k/uL Eosinophils # (0-0.7) k/uL Basophils # (0-0.2) k/uL Macrocytosis PT 10.4 (9.0-12.0) sec INR 1.1 (<1.2) APTT 24.6 (22.0-30.0) sec Sodium (137-145) mmol/L Potassium (3.5-5.1) mmol/L Chloride (98-107) mmol/L Carbon Dioxide (22-30) mmol/L Anion Gap mmol/L BUN (9-20) mg/dL Creatinine (0.66-1.25) mg/dL Est GFR (MDRD) Af Amer (>60 ml/min/1.73 sqM) Est GFR (MDRD) Non-Af (>60 ml/min/1.73 sqM) Glucose (74-99) mg/dL Calcium (8.4-10.2) mg/dL Magnesium (1.6-2.3) mg/dL Total Bilirubin (0.2-1.3) mg/dL AST (17-59) U/L ALT (21-72) U/L Alkaline Phosphatase (38-126) U/L Total Creatine Kinase (55-170) U/L CK-MB (CK-2) (0.0-2.4) ng/mL CK-MB (CK-2) Rel Index Troponin I (0.000-0.034) ng/mL Total Protein (6.3-8.2) g/dL Albumin (3.5-5.0) g/dL Serum Alcohol 83 mg/dL Disposition Clinical Impression: Alcohol withdrawal, Elevated liver enzymes Disposition: HOME SELF-CARE Condition: Good Prescriptions: Diazepam [Valium] 5 mg PO Q6H #10 tab Ondansetron Odt [Zofran Odt] 4 mg PO Q8HR PRN #10 tab PRN Reason: Nausea Referrals: Guillermina Perla MD [Primary Care Provider] - 1-2 days Time of Disposition: 15:35
[2017-03-14 14:00] LABS: Basophils # (A) 0.1 k/uL (0-0.2); Basophils % (A) 2 %; Eosinophils # (A) 0.2 k/uL (0-0.7); Eosinophils % (A) 4 %; HCT 44.2 % (39.0-53.0); INR 1.1 (<1.2); Lymphocytes # (A) 1.1 k/uL (1.0-4.8); Lymphocytes % (A) 25 %; MCH 34.4 pg (25.0-35.0); MCHC 33.9 g/dL (31.0-37.0); MCV 101.6 fL (80.0-100.0); Macrocytosis Slight; Monocytes # (A) 0.3 k/uL (0-1.0); Monocytes % (A) 7 %; Neutrophils # (A) 2.6 k/uL (1.3-7.7); Neutrophils % (A) 61 %; Partial Thromboplastin Time 24.6 sec (22.0-30.0); Platelet Count 104 k/uL (150-450); Prothrombin Time 10.4 sec (9.0-12.0); RBC 4.35 m/uL (4.30-5.90); RDW 15.1 % (11.5-15.5); WBC 4.3 k/uL (3.8-10.6)
[2017-03-14 14:01] LABS: ALT 240 U/L (21-72); AST 403 U/L (17-59); Albumin 4.8 g/dL (3.5-5.0); Alkaline Phosphatase 97 U/L (38-126); Anion Gap 17 mmol/L; Blood Urea Nitrogen 11 mg/dL (9-20); Calcium 9.8 mg/dL (8.4-10.2); Carbon Dioxide 23 mmol/L (22-30); Chloride 103 mmol/L (98-107); Glucose 139 mg/dL (74-99); Magnesium 1.7 mg/dL (1.6-2.3); Potassium 3.8 mmol/L (3.5-5.1); Sodium 143 mmol/L (137-145); Total Bilirubin 1.3 mg/dL (0.2-1.3); Total Protein 7.6 g/dL (6.3-8.2)
--- NOTE | 2017-03-14 14:07 | XR ---
EXAMINATION TYPE: XR chest 2V DATE OF EXAM: 03/14/2017 COMPARISON: Chest x-ray August 14, 2016 HISTORY: Chest pain today TECHNIQUE: Frontal and lateral views of the chest are obtained. FINDINGS: There is no focal air space opacity, pleural effusion, or pneumothorax seen. The cardiac silhouette size is within normal limits. The osseous structures are intact. IMPRESSION: No acute cardiopulmonary process on today's study. No significant change from prior.
[2017-03-14 14:16] LABS: Creatine Kinase 145 U/L (55-170)
[2017-03-14 14:30] LABS: Creatine Kinase MB 1.1 ng/mL (0.0-2.4); Troponin I <0.012 ng/mL (0.000-0.034)
[2017-03-14 23:28] VITALS: BP 142/88; PULSE 111; RESP 18; TEMP 98.9
== END 2017-03-14 15:53 | disposition home or self-care (01) ==
LOC: EC 12:58
DX: F10.239 Alcohol dependence with withdrawal, unspecified (principal); R74.8 Abnormal levels of other serum enzymes; F41.9 Anxiety disorder, unspecified; F32.9 Major depressive disorder, single episode, unspecified; F17.200 Nicotine dependence, unspecified, uncomplicated; Z88.0 Allergy status to penicillin; Z88.8 Allergy status to other drugs, medicaments and biological substances; Z79.899 Other long term (current) drug therapy
CPT/HCPCS: 99285; 96365; 96366; 96375 ×2; 36415; 93005; 80053; 82550; 82553; 83735; 84484; 85025; 85610; 85730; 80320; 71046; J2060; J3411; J2405

== ENCOUNTER 2021-11-22 07:34 | Day surgery (SDC) | payer OTHER ==
[~2021-11-22 07:34] MED LIST: LACTATED RINGERS 1,000 ML IV SCH
[2021-11-22 08:05] VITALS: TEMP 97.8
[2021-11-22] MEDS ORDERED: LACTATED RINGERS 1,000 ML IV ONE (08:05)
[2021-11-22] MEDS ORDERED: PROPOFOL 10 MG/ML 20 ML VIAL IV ONE (08:36)
--- NOTE | 2021-11-22 08:42 | P.GSHP ---
History of Present Illness H&P Date: 11/22/21 Chief Complaint: Colon cancer screening 51-year-old male here today for colonoscopy. He has not had one previously. No bowel related complaints. No family history of colon cancer Past Medical History Past Medical History: No Reported History, Hyperlipidemia Additional Past Medical History / Comment(s): HAD SEIZURES WHEN BABY STATED HE TOOK MEDS TILL ABOUT AGE 6-no seizures since History of Any Multi-Drug Resistant Organisms: None Reported Past Surgical History: Hernia Repair Additional Past Surgical History / Comment(s): RT INGUINAL HERNIA REPAIR skin ca removed lft shoulder Past Anesthesia/Blood Transfusion Reactions: No Reported Reaction Additional Past Anesthesia/Blood Transfusion Reaction / Comment(s): CLAUSTERPHOBIA Smoking Status: Current every day smoker - Past Family History Mother Family Medical History: Hypertension Father Family Medical History: No Reported History Medications and Allergies Home Medications Medication Instructions Recorded Confirmed Type Atorvastatin [Lipitor] 10 mg PO DAILY 11/17/21 11/17/21 History FLUoxetine HCL 40 mg PO DAILY 11/17/21 11/17/21 History Allergies Allergy/AdvReac Type Severity Reaction Status Date / Time bupropion HCl Allergy Rash/Hives Verified 11/17/21 12:29 [From Wellbutrin] Penicillins Allergy Unknown Verified 11/17/21 12:29 Childhood Surgical - Exam Vital Signs Temp Pulse Resp BP Pulse Ox 97.8 F 86 18 108/70 98 11/22/21 08:04 11/22/21 08:04 11/22/21 08:04 11/22/21 08:04 11/22/21 08:04 Physical exam: General: Well-developed, well-nourished HEENT: Normocephalic, sclerae nonicteric Abdomen: Nontender, nondistended Extremities: No edema Neuro: Alert and oriented Assessment and Plan (1) Colon cancer screening Narrative/Plan: Will proceed with colonoscopy at this time Current Visit: Yes Status: Acute Code(s): Z12.11 - ENCOUNTER FOR SCREENING FOR MALIGNANT NEOPLASM OF COLON SNOMED Code(s): 859914733
--- NOTE | 2021-11-22 09:04 | P.PCN ---
Date of Procedure: 11/22/21 Procedure(s) Performed: PREOPERATIVE DIAGNOSIS: Colon cancer screening POSTOPERATIVE DIAGNOSIS: Transverse, descending, sigmoid colon polyps PROCEDURE: Colonoscopy with snare polypectomy ANESTHESIA: MAC SURGEON: Kofi Lemons M.D. SPECIMENS: Polyps ENDOSCOPIC PROCEDURE: The patient was placed on the endoscopy table in the left decubitus position. The Olympus colonoscope was inserted into the anus and passed under direct visualization to the base of the cecum. The appendiceal orifice was visualized. From that point the scope was slowly withdrawn inspecting all surfaces carefully. There were no neoplastic inflammatory or polypoid lesions throughout the cecum and ascending colon. In the transverse colon a small polyp was seen and removed using the snare with cautery technique. In the descending colon another small polyp was seen and removed in a similar fashion. In the sigmoid colon another small polyp was seen and removed in a similar fashion. Rectum appeared normal. There was no visible diverticulosis. Digital rectal examination was normal. The patient was taken to the recovery room in stable condition per anesthesia guidelines. RECOMMENDATIONS: Await biopsy results. The small sigmoid colon polyp was not retrieved and it was quite small. Likely will advise follow-up colonoscopy 5 years.
[2021-11-22 09:15] VITALS: RESP 16
[2021-11-22 09:28] VITALS: BP 113/72; PULSE 71
== END 2021-11-22 09:56 | disposition home or self-care (01) ==
LOC: ORWHC2ENDO 07:34
PROVIDERS: ATTEND Surgery
DX: Z12.11 Encounter for screening for malignant neoplasm of colon (principal); D12.3 Benign neoplasm of transverse colon; K63.5 Polyp of colon; E78.5 Hyperlipidemia, unspecified; F32.A Depression, unspecified; F40.240 Claustrophobia; Z86.69 Personal history of other diseases of the nervous system and sense organs; Z85.828 Personal history of other malignant neoplasm of skin; F17.210 Nicotine dependence, cigarettes, uncomplicated; Z82.49 Family history of ischemic heart disease and other diseases of the circulatory system; Z98.890 Other specified postprocedural states; Z79.899 Other long term (current) drug therapy; Z88.0 Allergy status to penicillin; Z91.09 Other allergy status, other than to drugs and biological substances
CPT/HCPCS: 45385; J2704; 88305

== ENCOUNTER → 2023-06-11 | Outpatient (CLI) | payer OTHER ==
--- NOTE | 2023-06-11 22:53 | XR ---
EXAMINATION TYPE: XR cervical spine comp DATE OF EXAM: 06/11/2023 COMPARISON: None HISTORY: Left arm paresthesia TECHNIQUE: Five-view cervical spine FINDINGS: Moderate foraminal narrowing is present right C4-5, mild narrowing of C5-6 C6-7 on the righ t present. There is moderate to severe foraminal narrowing left C3-4 C4-5. Consider MRI for additiona l workup. Mild degenerative disc changes present C4-5. Anterior vertebral body spurring is present. Posterior s adali lamellar line is intact. Transthoracic swimmer's view appears within normal limits. Tip of the odontoid is obscured by overlying maxilla. IMPRESSION: 1. Foraminal narrowing greatest on the left C3-4 and C4-5. Consider MRI for closer evaluation
== END | disposition home or self-care (01) ==
LOC: RADXRMAIN 12:38
PROVIDERS: ATTEND Family Medicine
DX: M99.71 Connective tissue and disc stenosis of intervertebral foramina of cervical region (principal); R20.2 Paresthesia of skin
CPT/HCPCS: 72050

== ENCOUNTER → 2023-07-18 | Outpatient (CLI) | payer OTHER ==
--- NOTE | 2023-07-23 20:44 | CTL ---
EXAMINATION TYPE: CT Low Dose Lung DATE OF EXAM: 07/18/2023 11:56 AM CLINICAL INDICATION:Male, 53 years old with history of Z12.2 LUNG CA SCR F17.210 CURRENT SMOKER; curr ent smoker x35 years, 1 pack a day , history of tobacco use. A 35 pack-year. COMPARISON: None. TECHNIQUE: Multiple axial non-contrast scans were obtained from approximately the lung apices through the upper abdomen. Coronal and sagittal reformatted images were obtained. Low dose technique was uti lized. CT DLP: 128.8 mGycm, Automated exposure control for dose reduction was used. CT Contrast: Contrast used: None Oral contrast used: None FINDINGS: ======== Lack of intravenous contrast and low dose technique limits the evaluation of the vascular and soft ti ssue structures. LUNGS: No evidence of pulmonary fibrosis. No evidence of focal consolidation, pneumothorax or pleural effusion. No sizable pulmonary nodules. No pulmonary masses. Nodules: RUL: None. RML: None. RLL: None. KOBE: None. LLL: None. AIRWAY: Patent and unremarkable. HEART: Size within normal limits. MEDIASTINUM: No gross evidence of adenopathy. VASCULATURE: No aortic aneurysm. MUSCULOSKELETAL: No acute osseous abnormalities SOFT TISSUES/LYMPH NODES: Unremarkable. LOWER NECK: No significant findings. UPPER ABDOMEN: No significant findings. IMPRESSION: 1. No clinically significant pulmonary nodules. CT LUNG RAD AND CT CHEST RECOMMENDATION: 1. Negative. Routine annual follow-up CT low dose lung jewels Gonzalez Modifier (other clinically significant findings): None Recommend smoking cessation (if current smoker), or continuation of smoking cessation (if prior smoke r). Annual screening for lung cancer with low-dose computed tomography is recommended in adults ages 55 to 77 years who have a 30 pack-year smoking history and currently smoke or have quit within the pa st 15 years. Screening should be discontinued once a person has not smoked for 15 years or develops a health problem that substantially limits life expectancy or the ability or willingness to have curat sonia lung surgery. Lung rads 2021 [email or web address]
== END | disposition home or self-care (01) ==
LOC: RADCTMAIN 10:40
PROVIDERS: ATTEND Family Medicine
DX: Z12.2 Encounter for screening for malignant neoplasm of respiratory organs (principal); F17.210 Nicotine dependence, cigarettes, uncomplicated
CPT/HCPCS: 71271

== ENCOUNTER 2023-11-20 10:09 | Observation (INO) | payer OTHER ==
--- NOTE | 2023-11-20 10:56 | ED ---
Chest Pain HPI - General Source: patient, RN notes reviewed Mode of arrival: ambulatory Limitations: no limitations - History of Present Illness MD Complaint: chest pain <Bryanna Ramirez - Last Filed: 11/20/23 10:54> - General Source: patient, RN notes reviewed Mode of arrival: ambulatory Limitations: no limitations <Maximus Corrales - Last Filed: 11/20/23 12:40> - General Chief Complaint: Chest Pain Stated Complaint: chest tightness/SOB Time Seen by Provider: 11/20/23 10:54 - History of Present Illness Initial Comments: Quick Note: This is a 53-year-old male who presents to the emergency department for chest pain and shortness of breath. States that he woke up this morning feeling tightness in the center of his chest with associated shortness of breath and nausea. Denies any history of similar pain in the past. Denies any history of cardiac problems or stents. No family history of cardiac problems. (Bryanna Ramirez) Patient is a 53-year-old male presenting to the emergency department with chest discomfort. Onset of symptoms was this morning around 830 or 9. Patient has tightness that is mild at this time rated 3/10. Patient does have some associated dyspnea and minimal congestion. Patient believes his congestion is associated with his alcohol use. Patient did have some nausea and emesis. No diaphoresis no history of similar symptoms previously. (Maximus Corrales) - Related Data Home Medications Medication Instructions Recorded Confirmed Atorvastatin [Lipitor] 10 mg PO DAILY 11/17/21 11/17/21 FLUoxetine HCL 40 mg PO DAILY 11/17/21 11/17/21 Allergies Allergy/AdvReac Type Severity Reaction Status Date / Time bupropion HCl Allergy Rash/Hives Verified 11/20/23 10:22 [From Wellbutrin] Penicillins Allergy Unknown Verified 11/20/23 10:22 Childhood Review of Systems ROS Other: All systems not noted in ROS Statement are negative. <Bryanna Ramirez - Last Filed: 11/20/23 10:54> ROS Other: All systems not noted in ROS Statement are negative. Constitutional: Denies: fever Eyes: Denies: eye pain ENT: Reports: as per HPI Respiratory: Reports: dyspnea. Denies: cough Cardiovascular: Reports: as per HPI, chest pain Endocrine: Denies: fatigue Gastrointestinal: Denies: abdominal pain Genitourinary: Denies: dysuria Musculoskeletal: Denies: back pain Neurological: Denies: weakness <Maximus Corraels - Last Filed: 11/20/23 12:40> ROS Statement: Those systems with pertinent positive or pertinent negative responses have been documented in the HPI. Past Medical History Past Medical History: No Reported History, Hyperlipidemia Additional Past Medical History / Comment(s): HAD SEIZURES WHEN BABY STATED HE TOOK MEDS TILL ABOUT AGE 6-no seizures since History of Any Multi-Drug Resistant Organisms: None Reported Past Surgical History: Hernia Repair Additional Past Surgical History / Comment(s): RT INGUINAL HERNIA REPAIR skin ca removed lft shoulder Past Anesthesia/Blood Transfusion Reactions: No Reported Reaction Additional Past Anesthesia/Blood Transfusion Reaction / Comment(s): CLAUSTERPHOBIA Past Psychological History: Anxiety, Depression Smoking Status: Current every day smoker, Vaper Past Alcohol Use History: Daily Past Drug Use History: None Reported - Past Family History Mother Family Medical History: Hypertension Father Family Medical History: No Reported History <Bryanna Ramirez - Last Filed: 11/20/23 10:54> General Exam Limitations: no limitations <Bryanna Ramirez - Last Filed: 11/20/23 10:54> Limitations: no limitations General appearance: alert, in no apparent distress Head exam: Present: normocephalic Eye exam: Present: normal appearance ENT exam: Present: normal oropharynx Neck exam: Present: normal inspection Respiratory exam: Present: normal lung sounds bilaterally. Absent: chest wall tenderness Cardiovascular Exam: Present: regular rate, normal rhythm, normal heart sounds Expanded Peripheral pulses: 2+: Radial (R), Radial (L), Dorsalis Pedis (R), Dorsalis Pedis (L) GI/Abdominal exam: Present: soft. Absent: tenderness Extremities exam: Present: normal inspection. Absent: pedal edema, calf tenderness Neurological exam: Present: alert Psychiatric exam: Present: normal affect, normal mood Skin exam: Present: normal color <Maximus Corrales - Last Filed: 11/20/23 12:40> - General Exam Comments Initial Comments: Visual Physical Exam Vital signs reviewed General: Well-appearing, nontoxic, no acute distress. Head: Normocephalic, atraumatic Eyes: PERRLA, EOMI ENT: Airway patent Chest: Nonlabored breathing Skin: No visual rash, normal skin tone Neuro: Alert and oriented 3 Musculoskeletal: No gross abnormalities (Bryanna Ramirez) Course Vital Signs 11/20/23 10:19 Temperature 97.9 F Pulse Rate 117 H Respiratory 20 Rate Blood Pressure 116/76 O2 Sat by Pulse 99 Oximetry Chest Pain [facility] <Bryanna Ramirez - Last Filed: 11/20/23 10:54> <Maximus Corrales - Last Filed: 11/20/23 12:40> - [facility] I performed the QuickNote portion of this chart. Signed Bryanna Ramirez PA-C. (Bryanna Ramirez) Was pt. sent in by a medical professional or institution ([facility]IR[facility] Hurtado, [employer], urgent care, hospital, or fpc...) When possible be specific @ -No Did you speak to anyone other than the patient for history (EMS, parent, family, police, friend...)? What history was obtained from this source @ -No Did you review nursing and triage notes (agree or disagree)? Why? @ -I reviewed and agree with nursing and triage notes Were old charts reviewed (outside hosp., previous admission, EMS record, old EKG, old radiological studies, urgent care reports/EKG's, fpc records)? Report findings @ -No old charts were reviewed Differential Diagnosis (chest pain, altered mental status, abdominal pain women, abdominal pain men, vaginal bleeding, weakness, fever, dyspnea, syncope, headache, dizziness, GI bleed, back pain, seizure, CVA, palpatations, mental health, musculoskeletal)? @ -Differential Chest Pain: Stable Angina, Unstable Angina, STEMI, NSTEMI Aortic Dissection, Pneumothorax, Musculoskeletal, Esophageal Spasm GERD, Cholecystitis, Pancreatitis, Zoster, this is not meant to be an all-inclusive list. EKG interpreted by me (3pts min.). @ -Sinus tachycardia with a rate of 115. VT 155. QRS 98. QT 334. QTc 402. Left axis. Normal QRS. No acute ST change X-rays interpreted by me (1pt min.). @ -Chest x-ray shows no acute process CT interpreted by me (1pt min.). @ -None done U/S interpreted by me (1pt. min.). @ -None done What testing was considered but not performed or refused? (CT, X-rays, U/S, labs)? Why? @ -None What meds were considered but not given or refused? Why? @ -None Did you discuss the management of the patient with other professionals (professionals i.e. , PA, GL[employer] CUTTER HELPER, lab, RT, psych nurse, licensed clinical social worker, plywood stock grader, teacher, chief compliance officer, bottle caser)? Give summary @ -Case was discussed with Dr. Janelle Anthony who will admit covering for Dr. SARA Santoro. Was smoking cessation discussed for >3mins.? @ -No Was critical care preformed (if so, how long)? @ -No Were there social determinants of health that impacted care today? How? (Homelessness, low income, unemployed, alcoholism, drug addiction, transportation, low edu. Level, literacy, decrease access to med. care, snf, rehab)? @ -History of alcoholism Was there de-escalation of care discussed even if they declined (Discuss DNR or withdrawal of care, Hospice)? DNR status @ -No What co-morbidities impacted this encounter? (DM, HTN, Smoking, COPD, CAD, Cancer, CVA, ARF, Chemo, Hep., AIDS, mental health diagnosis, sleep apnea, morbid obesity)? @ -None Was patient admitted / discharged? Hospital course, mention meds given and route, prescriptions, significant lab abnormalities, going to OR and other pertinent info. @ -Patient presents with chest discomfort and dyspnea, work up at this time is unremarkable. Patient will be admitted with consult. Admission orders placed. Undiagnosed new problem with uncertain prognosis? @ -No Drug Therapy requiring intensive monitoring for toxicity (Heparin, Nitro, Insulin, Cardizem)? @ -No Were any procedures done? @ -No Diagnosis/symptom? @ -Chest pain Acute, or Chronic, or Acute on Chronic? @ -Acute Uncomplicated (without systemic symptoms) or Complicated (systemic symptoms)? @ -Default Side effects of treatment? @ -No Exacerbation, Progression, or Severe Exacerbation? @ -No Poses a threat to life or bodily function? How? (Chest pain, [place], [place], pneumonia, PE, COPD, DKA, ARF, appy, cholecystitis, CVA, Diverticulitis, Homicidal, Suicidal, threat to staff... and all critical care pts) @ -Threat to cardiac function (Maximus Corrales) Disposition <Bryanna Ramirez - Last Filed: 11/20/23 10:54> Is patient prescribed a controlled substance at d/c from ED?: No Time of Disposition: 12:35 <Maximus Corrales - Last Filed: 11/20/23 12:40> Clinical Impression: Chest pain Disposition: ADMITTED IP TO THIS HOSP Referrals: Guillermina Perla MD [Primary Care Provider] - 1-2 days
--- NOTE | 2023-11-20 10:57 | XR ---
EXAMINATION TYPE: XR chest 2V DATE OF EXAM: 11/20/2023 COMPARISON: 03/14/2017 HISTORY: Shortness of breath TECHNIQUE: Frontal and lateral views of the chest are obtained. FINDINGS: Scattered senescent parenchymal changes noted. Hyperinflation compatible with COPD. No evidence for infiltrate. No evidence for atelectasis. Heart size is stable. Mediastinal structures are stable and grossly unremarkable. No evidence for hilar prominence. Degenerative changes dorsal spine. IMPRESSION: 1. No evidence for acute pulmonary disease.
[2023-11-20 11:30] LABS: Partial Thromboplastin Time 23.7 sec (22.0-30.0); Prothrombin Time 10.5 sec (10.0-12.5)
[2023-11-20 11:37] LABS: ALT 153 U/L (4-49); AST 191 U/L (17-59); African American GFR (CKD) >90 (>60 ml/min/1.73 sqM); Albumin 4.3 g/dL (3.5-5.0); Alkaline Phosphatase 47 U/L (38-126); Anion Gap 14 mmol/L; Blood Urea Nitrogen 14 mg/dL (9-20); Carbon Dioxide 21 mmol/L (22-30); Chloride 103 mmol/L (98-107); Glucose 121 mg/dL (74-99); Magnesium 1.7 mg/dL (1.6-2.3); Non-African American GFR(CKD) >90 (>60 ml/min/1.73 sqM); Potassium 4.5 mmol/L (3.5-5.1); Sodium 138 mmol/L (137-145); Total Bilirubin 2.1 mg/dL (0.2-1.3); Total Protein 6.4 g/dL (6.3-8.2)
[2023-11-20 11:38] LABS: Basophils # (A) 0.1 k/uL (0-0.2); Basophils % (A) 1 %; Eosinophils # (A) 0.1 k/uL (0-0.7); Eosinophils % (A) 2 %; HCT 52.6 % (39.0-53.0); HGB 18.2 gm/dL (13.0-17.5); Lymphocytes # (A) 1.1 k/uL (1.0-4.8); Lymphocytes % (A) 19 %; MCH 35.5 pg (25.0-35.0); MCHC 34.6 g/dL (31.0-37.0); MCV 102.6 fL (80.0-100.0); Macrocytosis Slight; Mean Platelet Volume 7.7; Monocytes # (A) 0.3 k/uL (0-1.0); Monocytes % (A) 5 %; Neutrophils # (A) 4.4 k/uL (1.3-7.7); Neutrophils % (A) 72 %; Platelet Count 183 k/uL (150-450); RBC 5.13 m/uL (4.30-5.90); RDW 13.3 % (11.5-15.5); WBC 6.1 k/uL (3.8-10.6)
[2023-11-20] MEDS ORDERED: LORazepam 0.5 MG TAB PO PRN (12:40)
[2023-11-20] MEDS ORDERED: LORazepam 1 MG TAB PO PRN (12:40)
[2023-11-20] MEDS ORDERED: NITROGLYCERIN SL TABS 0.4 MG TAB SUBLINGUAL PRN (12:41)
[2023-11-20] MEDS: LORazepam 1 MG TAB PO PRN ×2 (12:59→18:28)
[2023-11-20] MEDS: ASPIRIN 81 MG PO STA (13:00)
[2023-11-20] MEDS: NITROGLYCERIN OINT 1 INCH/GM PACKET TOPICAL SCH (13:00)
[2023-11-20] MEDS: NICOTINE 14MG/24HR PATCH TRANSDERM STA (13:00)
[2023-11-20] MEDS: ONDANSETRON 4 MG/2 ML VIAL IVP PRN (13:06)
[2023-11-20] MEDS: LORazepam 2 MG/ML INJ IV STA ×2 (13:06→15:58)
[2023-11-20 15:04] LABS: Amylase 41 U/L (30-110); Lipase 89 U/L (23-300)
[2023-11-20] MEDS: METOPROLOL TARTRATE 5 MG/5 ML VIAL IVP STA (15:18)
[2023-11-20] MEDS: IBUPROFEN 400 MG TAB PO PRN (20:21)
[2023-11-20] MEDS: FLUTICASONE NASAL 50MCG/SPRAY 16GM BTL EA NOSTRIL PRN (21:22)
--- NOTE | 2023-11-20 21:38 | P.HPIM ---
History of Present Illness H&P Date: 11/20/23 Chief Complaint: Chest pain Patient is a 53-year-old male with known history of hyperlipidemia, alcohol abuse, currently everyday vaping, anxiety/depression presents to ER with complaints of chest pain. Patient states that he woke up this morning felt nauseous and short of breath. He felt like pressure-like sensation across the mid chest. Denied any radiation of the pain. No cough or sputum production. Denied any leg swelling. Patient drained on daily basis about 2 pints per day. Last drink was 8 AM this morning. Denies any prior history of cardiac disease. EKG showed sinus tachycardia Chest x-ray showed no evidence for acute pulmonary disease. Laboratory data showed WBC 6.1 hemoglobin 18.2 MCV 102.6 and platelets 183 D- dimer 0.44 Sodium 138 potassium 4.5 chloride 103 bicarb is 21 BUN 14 and creatinine 0.95 and blood sugar 121 total bili 2.1 AST 191 and ALT 153 alk phos 47 Troponin x 3 negative amylase lipase within normal limits. Influenza A B, RSV and COVID-19 PCR not detected. Review of Systems Constitutional: Patient denies any fever or chills . No generalized weakness or weight loss. Abdomen: Patient denied nausea vomiting and diarrhea and abdominal pain. Cardiovascular: Patient complains of pain across the mid chest, 3 x 10 associated shortness of breath. No leg swelling. No palpitations. Respiratory: patient denied any cough or sputum production. No shortness of breath Neurologic: Patient denied any numbness or tingling. no headache. Musculoskeletal: Patient denies any complaints of joint swelling or deformity. Skin: Negative Psychiatric: Negative Endocrine: No heat or cold intolerance. No recent weight gain. Genitourinary: No dysuria or hematuria. All other 14 point ROS negative except the above Past Medical History Past Medical History: Hyperlipidemia Additional Past Medical History / Comment(s): HAD SEIZURES WHEN BABY STATED HE TOOK MEDS TILL ABOUT AGE 6-no seizures since History of Any Multi-Drug Resistant Organisms: None Reported Past Surgical History: Hernia Repair Additional Past Surgical History / Comment(s): RT INGUINAL HERNIA REPAIR skin ca removed lft shoulder Past Anesthesia/Blood Transfusion Reactions: No Reported Reaction Additional Past Anesthesia/Blood Transfusion Reaction / Comment(s): CLAUSTERPHOBIA Past Psychological History: Anxiety, Depression Additional Psychological History / Comment(s): 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 NO PETS. NO SERVICE IN PAST. HAS WORKED [employer]. NO HOME CARES SERVICES, NO MEDICAL EQUIPMENT EXCEPT FOR BP MONITOR. Smoking Status: Current every day smoker, Vaper Past Alcohol Use History: Daily Additional Past Alcohol Use History / Comment(s): STARTED SMOKING AT AGE 17, SMOKES 1PPD. Past Drug Use History: None Reported - Past Family History Mother Family Medical History: Hypertension Father Family Medical History: No Reported History Medications and Allergies Home Medications Medication Instructions Recorded Confirmed Type Atorvastatin [Lipitor] 10 mg PO HS 11/17/21 11/20/23 History hydrOXYzine HCL [Atarax] 25 mg PO BID PRN 11/20/23 11/20/23 History Allergies Allergy/AdvReac Type Severity Reaction Status Date / Time bupropion HCl Allergy Rash/Hives Verified 11/20/23 13:10 [From Wellbutrin] Penicillins Allergy Unknown Verified 11/20/23 13:10 Childhood Physical Exam Vitals: Vital Signs Temp Pulse Pulse Resp BP BP Pulse Ox 11/20/23 20:50 98.2 F 115 H 19 142/92 94 L 11/20/23 20:24 102 H 16 134/93 96 11/20/23 18:33 112 H 18 117/91 11/20/23 15:22 106 H 16 115/79 99 11/20/23 13:10 98.1 F 108 H 22 137/106 100 11/20/23 10:19 97.9 F 117 H 20 116/76 99 Intake and Output 11/20/23 11/20/23 11/20/23 06:59 14:59 22:59 Other: Weight 81.647 kg 81.647 kg PHYSICAL EXAMINATION: Patient is lying in the bed comfortably, no acute distress, awake alert and oriented, mildly confused.. HEENT: Normocephalic. Neck is supple. Pupils reactive. Nostrils clear. Oral cavity is moist. Neck reveals no JVD, carotid bruits, or thyromegaly. CHEST EXAMINATION: Trachea is central. Symmetrical expansion. Basilar dimi nished sounds, lung fuchs clear to auscultation and percussion. CARDIAC: Normal S1, S2 with no gallops. No murmurs ABDOMEN: Soft. Bowel sounds normal. No organomegaly. No abdominal bruits. Extremities: reveal no edema. No clubbing or cyanosis Neurologically awake, alert, oriented x3 with well-coordinated movements. No focal deficits noted Skin: No rash or skin lesions. Psychiatric: Coperative. Nonsuicidal, anxious. Musculoskeletal: No joint swelling or deformity. Normal range of motion. Results CBC & Chem 7: 11/20/23 10:58 09 10:58 Labs: Abnormal Lab Results - Last 24 Hours (Table) 11/20/23 11/20/23 Range/Units 10:58 10:58 Hgb 18.2 H (13.0-17.5) gm/dL MCV 102.6 H (80.0-100.0) fL MCH 35.5 H (25.0-35.0) pg Carbon Dioxide 21 L (22-30) mmol/L Glucose 121 H (74-99) mg/dL Total Bilirubin 2.1 H (0.2-1.3) mg/dL AST 191 H (17-59) U/L ALT 153 H (4-49) U/L Thrombosis Risk Factor Assmnt - DVT/VTE Prophylaxis DVT/VTE Prophylaxis: Pharmacologic Prophylaxis ordered - Choose All That Apply Any of the Below Risk Factors Present?: Yes Each Factor Represents 1 point: Age 41-60 years Other Risk Factors: No Thrombosis Risk Factor Assessment Total Risk Factor Score: 1 Thrombosis Risk Factor Assessment Level: Low Risk Assessment and Plan Assessment: Atypical chest pain and shortness of breath. Rule out ACS Alcohol abuse on daily basis Alcoholic hepatitis Sinus tachycardia Hyperlipidemia Anxiety/depression Currently everyday vaping Macrocytosis due to alcohol abuse DVT prophylaxis heparin subcu GI prophylax with PPI Plan: Patient will be continued on IV hydration with normal saline. Continue with anh ly monitoring. Serial EKG and troponin x 3 negative. Aspirin and statins. Continue thiamine and multivitamins and alcohol withdrawal protocol. Continue with home medications and cardiology evaluation. Prognosis is guarded. Time with Patient: Greater than 30
[2023-11-20] MEDS: MAGNESIUM SULFATE-D5W PMX 1 GM in DEXTROSE/WATER 1 100ML.BAG IVPB ONE (23:58)
[2023-11-20] MEDS: ATORVASTATIN 10 MG TAB PO SCH (23:59)
[2023-11-20] MEDS: SODIUM CHLORIDE 0.9% 1,000 ML IV SCH (23:59)
[2023-11-21 02:29] VITALS: RESP 16; TEMP 97.8
[2023-11-21] MEDS: PANTOPRAZOLE 40 MG TABLET PO SCH (06:08)
[2023-11-21 07:59] VITALS: BP 115/77; PULSE 91
[2023-11-21 08:40] LABS: Basophils # (A) 0.05 X 10*3/uL (0.00-0.10); Eosinophils # (A) 0.19 X 10*3/uL (0.04-0.35); Eosinophils % (A) 3.7 %; HCT 41.5 % (39.6-50.0); HGB 14.7 g/dL (13.0-17.0); MCH 35.1 pg (27.0-32.0); MCHC 35.4 g/dL (32.0-37.0); Mean Platelet Volume 9.5 FL (9.5-12.2); Monocytes # (A) 0.37 X 10*3/uL (0.20-1.00); Monocytes % (A) 7.1 %; NRBC Per 100 WBC 0 X 10*3/uL (0.00-0.01); Neutrophils # (A) 3.27 X 10*3/uL (1.80-7.70); Neutrophils % (A) 62.8 %; Platelet Count 121 X 10*3/uL (140-440); RBC 4.19 X 10*6/uL (4.40-5.60); RDW 12.5 % (11.5-14.5)
[2023-11-21] MEDS ORDERED: ASPIRIN 325 MG TAB PO SCH (09:00)
[2023-11-21 09:03] LABS: BUN/Creat Ratio 19.56 Ratio (12.00-20.00); Blood Urea Nitrogen 17.6 mg/dL (9.0-27.0); Calcium 8.6 mg/dL (8.7-10.3); Carbon Dioxide 24.6 mmol/L (21.6-31.8); Chloride 101 mmol/L (96-109); Chol/HDL Ratio 3.45 Ratio; Glucose 108 mg/dL (70-110); LDL Cholesterol,Calculated 94.4 mg/dL (0.0-131.0); Potassium 3.6 mmol/L (3.5-5.5); Sodium 136 mmol/L (135-145)
[2023-11-21] MEDS: THIAMINE 100 MG TAB PO SCH (09:14)
--- NOTE | 2023-11-21 09:27 | P.CRDCN ---
History of Present Illness History of present illness: HISTORY OF PRESENT ILLNESS: This is a 53-year-old male with a past medical history significant for hyperlipidemia, anxiety, depression, nicotine dependence, and alcohol abuse. 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 We have been asked to see the patient in consultation for chest pain. Patient examined at the bedside. Patient states yesterday he woke up and was feeling nauseated. He does report having some episodes of vomiting. He reports having some chest discomfort in the middle of his chest and shortness of breath. He came to the emergency room for further evaluation. Patient currently denies any chest pain or pressure. The patient does have a history of alcohol abuse. Alcohol level was less than 10 on admission. DIAGNOSTICS: - EKG reveals sinus mechanism with no signs of acute ischemia. - Chest xray negative for acute process - Laboratory data: WBC 5.20. Hemoglobin 14.7. Platelet count 121. D-dimer 0.44. Sodium 136. Potassium 3.6. Bilirubin 2.1. AST 191. ALT 153. TSH 4.840. - Current home cardiac medications include Lipitor 10 mg at night REVIEW OF SYSTEMS: At the time of my exam: CONSTITUTIONAL: Denies fever or chills. HEENT: Denies blurred vision, vision changes, or eye pain. Denies hemoptysis CARDIOVASCULAR: Denies chest pain. Denies orthopnea. Denies PND. Denies palpitations RESPIRATORY: Denies shortness of breath. GASTROINTESTINAL: Denies abdominal pain. Denies nausea or vomiting. HEMATOLOGIC: Denies bleeding disorders. GENITOURINARY: Denies any blood in urine. SKIN: Denies pruitis. Denies rash. PHYSICAL EXAM: VITAL SIGNS: Reviewed. GENERAL: Well-developed in no acute distress. HEENT: Head is normocephalic. Pupils are equal, round. Sclerae anicteric. Mucous membranes of the mouth are moist. Neck supple. No JVD or thyromegaly LUNGS: Respirations even and unlabored. Lungs essentially clear to auscultation bilaterally. HEART: Regular rate and rhythm. S1 and S2 heard. ABDOMEN: Soft. Nondistended. Nontender. EXTREMITIES: Normal range of motion. No clubbing or cyanosis. Peripheral pulses intact. No lower extremity edema NEUROLOGIC: Awake and alert. Oriented x 3. ASSESSMENT: Chest pain, atypical, troponin negative x 3 Hyperlipidemia Elevated liver enzymes Anxiety Depression Nicotine dependence History of alcohol abuse PLAN: An acute coronary event has been ruled out Obtain 2D echo to assess cardiac structure and function Hold Lipitor secondary to elevated LFTs Smoking cessation recommended Abstinence from alcohol encouraged Patient to undergo stress echocardiogram today If negative, he may be discharged home from a cardiac standpoint Nurse practitioner note has been reviewed by physician. Signing provider agrees with the documented findings, assessment, and plan of care documented by [facility] [employer] as a scribe. Past Medical History Past Medical History: Hyperlipidemia Additional Past Medical History / Comment(s): HAD SEIZURES WHEN BABY STATED HE TOOK MEDS TILL ABOUT AGE 6-no seizures since History of Any Multi-Drug Resistant Organisms: None Reported Past Surgical History: Hernia Repair Additional Past Surgical History / Comment(s): RT INGUINAL HERNIA REPAIR skin ca removed lft shoulder Past Anesthesia/Blood Transfusion Reactions: No Reported Reaction Additional Past Anesthesia/Blood Transfusion Reaction / Comment(s): CLAUSTERPHOBIA Past Psychological History: Anxiety, Depression Additional Psychological History / Comment(s): 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 NO PETS. NO SERVICE IN PAST. 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 NO HOME CARES SERVICES, NO MEDICAL EQUIPMENT EXCEPT FOR BP MONITOR. Smoking Status: Current every day smoker, Vaper Past Alcohol Use History: Daily Additional Past Alcohol Use History / Comment(s): STARTED SMOKING AT AGE 17, SMOKES 1PPD. Past Drug Use History: None Reported - Past Family History Mother Family Medical History: Hypertension Father Family Medical History: No Reported History Medications and Allergies Home Medications Medication Instructions Recorded Confirmed Type Atorvastatin [Lipitor] 10 mg PO HS 11/17/21 11/20/23 History hydrOXYzine HCL [Atarax] 25 mg PO BID PRN 11/20/23 11/20/23 History Allergies Allergy/AdvReac Type Severity Reaction Status Date / Time bupropion HCl Allergy Rash/Hives Verified 11/20/23 13:10 [From Wellbutrin] Penicillins Allergy Unknown Verified 11/20/23 13:10 Childhood Physical Exam Vitals: Vital Signs Temp Pulse Pulse Resp BP BP Pulse Ox 11/21/23 07:00 97.8 F 91 16 115/77 97 11/21/23 00:26 97.8 F 83 16 115/75 97 11/20/23 20:50 98.2 F 115 H 19 142/92 94 L 11/20/23 20:24 102 H 16 134/93 96 11/20/23 18:33 112 H 18 117/91 11/20/23 15:22 106 H 16 115/79 99 11/20/23 13:10 98.1 F 108 H 22 137/106 100 11/20/23 10:19 97.9 F 117 H 20 116/76 99 Intake and Output 11/20/23 11/21/23 11/21/23 22:59 06:59 14:59 Other: # Voids 1 2 Weight 81.647 kg Results 11/21/23 03:00 11/21/23 03:00 Cardiac Enzymes 11/20/23 11/20/23 11/20/23 Range/Units 10:58 10:58 14:36 AST 191 H (17-59) U/L Troponin I <0.012 <0.012 (0.000-0.034) ng/mL 11/20/23 Range/Units 17:18 AST (17-59) U/L Troponin I <0.012 (0.000-0.034) ng/mL Coagulation 11/20/23 Range/Units 10:58 PT 10.5 (10.0-12.5) sec APTT 23.7 (22.0-30.0) sec Lipids 11/21/23 Range/Units 03:00 Triglycerides 100.00 (0.00-149.00) mg/dL Cholesterol 161.00 (0.00-200.00) mg/dL HDL Cholesterol 46.60 (40.00-60.00) mg/dL Cholesterol/HDL Ratio 3.45 Ratio CBC 11/20/23 11/21/23 Range/Units 10:58 03:00 WBC 6.1 5.20 (3.8-10.6) k/uL RBC 5.13 4.19 L (4.30-5.90) m/uL Hgb 18.2 H 14.7 (13.0-17.5) gm/dL Hct 52.6 41.5 (39.0-53.0) % Plt Count 183 121 L (150-450) k/uL Comprehensive Metabolic Panel 11/20/23 11/21/23 Range/Units 10:58 03:00 Sodium 138 136 (137-145) mmol/L Potassium 4.5 3.6 (3.5-5.1) mmol/L Chloride 103 101 (98-107) mmol/L Carbon Dioxide 21 L 24.6 (22-30) mmol/L BUN 14 17.6 (9-20) mg/dL Creatinine 0.95 0.9 (0.66-1.25) mg/dL Glucose 121 H 108 (74-99) mg/dL Calcium 9.0 8.6 L (8.4-10.2) mg/dL AST 191 H (17-59) U/L ALT 153 H (4-49) U/L Alkaline Phosphatase 47 (38-126) U/L Total Protein 6.4 (6.3-8.2) g/dL Albumin 4.3 (3.5-5.0) g/dL Current Medications Generic Name Dose Route Start Last Admin Trade Name Freq PRN Reason Stop Dose Admin Fluticasone Propionate 2 spray 11/20/23 19:57 11/20/23 21:22 Fluticasone Nasal 50mcg/[place] 16gm Btl EA NOSTRIL 2 spray DAILY PRN Administration Congestion Sodium Chloride 1,000 mls @ 75 mls/hr 11/20/23 22:45 11/20/23 23:59 Saline 0.9% IV 11/21/23 22:44 75 mls/hr .[id number] WEST Administration Ibuprofen 400 mg 11/20/23 19:55 11/20/23 20:21 Ibuprofen 400 Mg Tab PO 400 mg Q6HR PRN Administration Pain Lorazepam 2 mg 11/20/23 12:40 11/20/23 23:59 Lorazepam 1 Mg Tab PO 2 mg Q3HR PRN Administration [place] 8 To 9 Lorazepam 2 mg 11/20/23 12:40 11/20/23 12:59 Lorazepam 1 Mg Tab PO 2 mg Q2HR PRN Administration [place] 10 or greater Lorazepam 1 mg 11/20/23 12:40 Lorazepam 1 Mg Tab PO Q4HR PRN [place] 6 To 7 Lorazepam 0.5 mg 11/20/23 12:40 Lorazepam 0.5 Mg Tab PO Q4HR PRN [place] 4 To 5 Nitroglycerin 0.4 mg 11/20/23 12:41 Nitroglycerin Sl Tabs 0.4 Mg Tab SUBLINGUAL Q5M PRN Chest Pain Ondansetron HCl 4 mg 11/20/23 13:03 11/20/23 13:06 Ondansetron 4 Mg/2 Ml Vial IVP 4 mg Q6HR PRN Administration Nausea And Vomiting Pantoprazole Sodium 40 mg 11/21/23 07:30 11/21/23 06:08 Pantoprazole 40 Mg Tablet PO 40 mg [id number] WEST Administration Thiamine HCl 100 mg 11/21/23 09:00 11/21/23 09:14 Thiamine 100 Mg Tab PO 100 mg DAILY WEST Administration Intake and Output 11/20/23 11/21/23 11/21/23 22:59 06:59 14:59 Other: # Voids 1 2 Weight 81.647 kg 11/21/23 03:00 11/21/23 03:00
--- NOTE | 2023-11-21 10:54 | CA ---
Transthoracic Echo Report Name: Duy Fisher Age: 53 Gender: M : 1970 Exam Date: 11/21/2023 09:55 Exam Location: [facility] Ht (in): 70 Wt (lb): 180 Ordering Physician: Daisha Rosales Attending/Referring Phys: [id number], Bobby Camouflage Assembler Jennifer Leblanc RDCS Procedure CPT: Indications: LV function Cardiac Hx: smoker Technical Quality: Good Contrast 1: Total Dose (mL): Contrast 2: Total Dose (mL): MEASUREMENTS (Male / Female) Normal Values 2D ECHO LV Diastolic Diameter PLAX 5.0 cm 4.2 - 5.9 / 3.9 - 5.3 cm LV Systolic Diameter PLAX 3.8 cm IVS Diastolic Thickness 0.9 cm 0.6 - 1.0 / 0.6 - 0.9 cm LVPW Diastolic Thickness 1.1 cm 0.6 - 1.0 / 0.6 - 0.9 cm LV Relative Wall Thickness 0.4 RV Internal Dim ED PLAX 2.8 cm LA Systolic Diameter LX 3.3 cm 3.0 - 4.0 / 2.7 - 3.8 cm LV Diastolic Volume MOD BP 61.1 cm??? 67 - 155 / 56 - 104 cm??? LV Systolic Volume MOD BP 27.0 cm??? - 58 / 19 - 49 cm??? LV Ejection Fraction MOD BP 55.9 % >= 55 % LV Cardiac Index MOD BP 1759.8 cm???/min???m??? LV Diastolic Volume MOD 4C 63.8 cm??? LV Systolic Volume MOD 4C 30.3 cm??? LV Ejection Fraction MOD 4C 52.6 % LV Cardiac Index MOD 4C 1728.2 cm???/min???m??? LV Diastolic Length 4C 6.9 cm LV Systolic Length 4C 6.0 cm LV Diastolic Volume MOD 2C 57.0 cm??? LV Systolic Volume MOD 2C 24.3 cm??? LV Ejection Fraction MOD 2C 57.4 % LV Cardiac Index MOD 2C 1686.6 cm???/min???m??? LV Diastolic Length 2C 6.7 cm LV Systolic Length 2C 5.9 cm LA Volume 24.3 cm??? - 58 / 22 - 52 cm??? LA Volume Index 12.0 cm???/m??? 16 - 28 cm???/m??? M-MODE Aortic Root Diameter MM 3.5 cm AV Cusp Separation MM 2.2 cm DOPPLER MV Area PHT 5.9 cm??? Mitral E Point Velocity 72.9 cm/s Mitral A Point Velocity 106.3 cm/s Mitral E to A Ratio 0.7 MV Deceleration Time 129.4 ms FINDINGS Left Ventricle Left ventricular ejection fraction is estimated at 50-55 %. Left ventricular cavity size normal. Left ventricular wall thickness normal. Right Ventricle Normal right ventricular size and function. Unable to estimate the right ventricular systolic pressure. Right Atrium Normal right atrial size. No right atrial thrombus or mass seen. Left Atrium Normal left atrial size. No left atrial thrombus or mass present. Mitral Valve Structurally normal mitral valve. Trace mitral regurgitation. Aortic Valve Trileaflet aortic valve. No aortic valve stenosis or regurgitation. Tricuspid Valve Structurally normal tricuspid valve. No tricuspid stenosis, regurgitation or prolapse. Pulmonic Valve Structurally normal pulmonic valve. No pulmonic regurgitation. Pericardium No pericardial or pleural effusion. Aorta Normal size aortic root and proximal ascending aorta. CONCLUSIONS Normal LV function Previewed by: Dr. Marlon Lyman MD (Electronically Signed) Final Date: 21 November 2023 10:54
--- NOTE | 2023-11-21 10:58 | CA ---
Stress Echo Report Duy Fisher Age: 53 Gender: M : 1970 Exam Date: 11/21/2023 09:39 Exam Location: [facility] Ht (in): 70 Wt (lb): 180 Ordering Physician: Daisha Rosales Referring Physician: [id number] Editor [employer] Founder: NOREEN Technologist Procedure CPT: Indication: CP ICD-9 Codes: Rhythm: Patient History: Cardiac Medications: SEE CHART Medications in past 24 hours: Contrast: N/A Stress Results Protocol: Matt Total dose(mL): NA Exercise Duration (min:sec): 4:[address] Depression (mm): Angina Score: Ascencio Score: METS: 5.6 Resting HR: 114 Resting BP: 122 / 60 Peak HR: 158 Peak BP: 163 / 75 Max Predicted HR: 166 95 % Max Predicted HR Target HR: 141 Double Product: [id number] Stress Summary: BP Response: Reason for Termination: MAX EXERTION/TARGET HR Cardiac Symptoms: DIFFICULTY IN BREATHING ECG Analysis Resting ECG: Normal sinus rhythm normal axis normal intervals with poor R-wave progression Stress ECG: Patient exercised on Matt protocol for 4 minutes achieving 85% of predicted maximal heart rate without chest pain or diagnostic ST segment depression Arrhythmia: Echo Analysis Resting Echo: Normal left ventricular size wall motion systolic function Peak Echo Analysis: Normal hyperdynamic response MEASUREMENTS (Male/Female) Normal Values CONCLUSIONS Poor exercise tolerance Negative stress test by EKG criteria Negative stress echo Dr. Marlon Lyman MD (Electronically Signed) Final Date: 21 November 2023 10:57
--- NOTE | 2023-11-22 00:23 | P.DS ---
Providers Date of admission: 11/20/23 12:42 Attending physician: Angelika Walls Consults: 11/20/23 12:41 Consult Physician Urgent Consulting Provider: Edgar Norton Consult Reason/Comments: cp Do you want consulting provider notified?: Yes Primary care physician: [facility] Course: Diagnoses: Atypical chest pain and shortness of breath. Rule out ACS Alcohol abuse on daily basis Alcoholic hepatitis Sinus tachycardia Hyperlipidemia Anxiety/depression Currently everyday vaping Macrocytosis due to alcohol abuse DVT prophylaxis heparin subcu GI prophylax with PPI Plan: Patient will be continued on IV hydration with normal saline. Continue with daily monitoring. Serial EKG and troponin x 3 negative. Aspirin and statins. Continue thiamine and multivitamins and alcohol withdrawal protocol. Continue with home medications and cardiology evaluation. Prognosis is guarded. Time with Patient: Greater than 30 Hospital course Patient is a 53-year-old male with known history of hyperlipidemia, alcohol abuse, currently everyday vaping, anxiety/depression presents to ER with complaints of chest pain. Patient evaluated by lead ios developer, he has negative stress test, he has negative D-dimer Chest pain improved No GI symptoms and he tolerates diet His withdrawal symptoms improved and patient consult with and he agrees. 1 dose of Valium long-acting benzodiazepine is provided for the patient for tonight with recommendation to avoid drinking while on benzodiazepine with risk of respiratory depression explained for him extensively and he verbalized understanding and acceptance. Patient was cleared for discharge by lead ios developer Patient denies any other symptoms and is eager to go home today Problems and management plan were discussed with the patient and he verbalized understanding and acceptance Patient was found stable and can be discharged home in guarded prognosis however he needs follow-up as an outpatient. Patient was instructed to follow up with PCP Dr. Patrick within one week and patient agrees Patient was instructed to follow-up with Dr. Santoro lead ios developer in 2 weeks after discharge and he agrees Physical exam Gen: patient is a AAOx3, no distress CVS: S1-S2, RRR, no murmur Lungs: B/L CTA, no wheezing Abdomen: soft, no distention, no tenderness, positive bowel sounds Extremity: no leg edema or induration Time spent more than 35 minutes Plan - Discharge Summary New Discharge Prescriptions: New diazePAM [Valium] 5 mg PO HS 1 Days #1 tab Thiamine [Vitamin B-1] 100 mg PO DAILY #30 tab Continue hydrOXYzine HCL [Atarax] 25 mg PO BID PRN PRN Reason: Anxiety Discontinued Atorvastatin [Lipitor] 10 mg PO HS Discharge Medication List hydrOXYzine HCL [Atarax] 25 mg PO BID PRN 11/20/23 [History] Thiamine [Vitamin B-1] 100 mg PO DAILY #30 tab 11/21/23 [Rx] diazePAM [Valium] 5 mg PO HS 1 Days #1 tab 11/21/23 [Rx] Follow up Appointment(s)/Referral(s): Guillermina Perla MD [Primary Care Provider] - 1-2 days Marlon Lyman MD [STAFF PHYSICIAN] - 2 Weeks (Office will call with appointment time and date.) Patient Instructions/Handouts: Chest Pain (DC), Chest Pain (GEN), Abuse of Alcohol (DC) Activity/Diet/Wound Care/Special Instructions: Heart healthy diet Activity is restricted till you see your doctor We recommend to check your liver function test blood test with your doctor in 1 week after discharge. Keep holding Lipitor until then Follow up as directed, sooner for worsening problems or concerns. Discharge/Stand Alone Forms: Who Do I Call?, Outpatient Counseling Discharge Disposition: HOME SELF-CARE
== END 2023-11-21 13:17 | disposition home or self-care (01) ==
LOC: EC 10:09 → 6NMEDSUR 12:42
PROVIDERS: ADMIT Internal Medicine; ATTEND Internal Medicine
DX: R07.89 Other chest pain (principal); R06.02 Shortness of breath; F10.20 Alcohol dependence, uncomplicated; K70.10 Alcoholic hepatitis without ascites; D75.89 Other specified diseases of blood and blood-forming organs; R00.0 Tachycardia, unspecified; E78.5 Hyperlipidemia, unspecified; F32.A Depression, unspecified; F41.9 Anxiety disorder, unspecified; F17.210 Nicotine dependence, cigarettes, uncomplicated; F17.290 Nicotine dependence, other tobacco product, uncomplicated; Z79.899 Other long term (current) drug therapy; Z88.0 Allergy status to penicillin; Z88.8 Allergy status to other drugs, medicaments and biological substances; Z11.52 Encounter for screening for COVID-19; Z11.59 Encounter for screening for other viral diseases; Z82.49 Family history of ischemic heart disease and other diseases of the circulatory system
CPT/HCPCS: 36415; 71046; 80048; 80053; 80061; 80320; 82150; 83690; 83735; 84443; 84484; 85025; 85379; 85610; 85730; 87636; 93005; 93306; 93351; 96365; 96375; 96376; 99285

== ENCOUNTER 2024-05-23 17:05 | Observation (INO) | payer OTHER ==
--- NOTE | 2024-05-23 17:45 | ED ---
SOB HPI - General Source: patient, RN notes reviewed Mode of arrival: wheelchair Limitations: no limitations <Casey Amezcua - Last Filed: 05/23/24 17:42> <Omar Barrios - Last Filed: 05/23/24 20:09> - General Stated Complaint: chest pain, SOB, L arm numbness Time Seen by Provider: 05/23/24 17:19 - History of Present Illness Initial Comments: Quick note: This is a 54-year-old male with history of EtOH abuse presenting with dyspnea and chest pain x 4 days. Patient states chest tightness is intermittent and nonradiating. Also endorses nausea/vomiting upon waking and every morning for the past 3 months with emesis of mucus. Patient states he continues drinking liquor because of the recurring nausea/vomiting, stating if h e can control his GI symptoms he can avoid need for liquor use in the future. Patient also mentions tremors and sweating. States he last had a drink of liquor 3 hours prior to ER arrival. Patient states he had quit alcohol for 6 years before starting again recently, stating he is currently taking Vivitrol. Endorses concern for diminished kidney function. (Casey Amezcua) - Related Data Home Medications Medication Instructions Recorded Confirmed hydrOXYzine HCL [Atarax] 25 mg PO BID PRN 11/20/23 11/20/23 Previous Rx's Medication Instructions Recorded Thiamine [Vitamin B-1] 100 mg PO DAILY #30 tab 11/21/23 diazePAM [Valium] 5 mg PO HS 1 Days #1 tab 11/21/23 Allergies Allergy/AdvReac Type Severity Reaction Status Date / Time bupropion HCl Allergy Rash/Hives Verified 05/23/24 17:47 [From Wellbutrin] Penicillins Allergy Unknown Verified 05/23/24 17:47 Childhood Review of Systems ROS Other: All systems not noted in ROS Statement are negative. <Casey Amezcua - Last Filed: 05/23/24 17:42> ROS Other: All systems not noted in ROS Statement are negative. <Omar Barrios - Last Filed: 05/23/24 20:09> ROS Statement: Those systems with pertinent positive or pertinent negative responses have been documented in the HPI. Past Medical History Past Medical History: Hyperlipidemia Additional Past Medical History / Comment(s): HAD SEIZURES WHEN BABY STATED HE TOOK MEDS TILL ABOUT AGE 6-no seizures since History of Any Multi-Drug Resistant Organisms: None Reported Past Surgical History: Hernia Repair Additional Past Surgical History / Comment(s): RT INGUINAL HERNIA REPAIR skin ca removed lft shoulder Past Anesthesia/Blood Transfusion Reactions: No Reported Reaction Additional Past Anesthesia/Blood Transfusion Reaction / Comment(s): CLAUSTERPHOBIA Past Psychological History: Anxiety, Depression Additional Psychological History / Comment(s): 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 NO PETS. NO SERVICE IN PAST. HAS WORKED RO[employer]. NO HOME CARES SERVICES, NO MEDICAL EQUIPMENT EXCEPT FOR BP MONITOR. Smoking Status: Current every day smoker, Vaper Past Alcohol Use History: Daily Additional Past Alcohol Use History / Comment(s): STARTED SMOKING AT AGE 17, SMOKES 1PPD. Past Drug Use History: None Reported - Past Family History Mother Family Medical History: Hypertension Father Family Medical History: No Reported History <Casey Amezcua - Last Filed: 05/23/24 17:42> General Exam <Casey Amezcua - Last Filed: 05/23/24 17:42> General appearance: alert, in no apparent distress Head exam: Present: atraumatic, normocephalic Eye exam: Present: normal appearance, PERRL ENT exam: Present: mucous membranes dry Neck exam: Present: normal inspection. Absent: tenderness, meningismus Respiratory exam: Present: normal lung sounds bilaterally. Absent: respiratory distress, wheezes Cardiovascular Exam: Present: regular rate, normal rhythm GI/Abdominal exam: Present: soft. Absent: distended, tenderness, guarding Extremities exam: Present: normal inspection, normal capillary refill. Absent: pedal edema, calf tenderness Neurological exam: Present: alert, oriented X3, CN II-XII intact. Absent: motor sensory deficit Psychiatric exam: Present: normal affect, normal mood Skin exam: Present: warm, dry, intact. Absent: cyanosis, diaphoretic <Omar Barrios - Last Filed: 05/23/24 20:09> - General Exam Comments Initial Comments: Visual Physical Exam Vital signs reviewed General: Well-appearing, nontoxic, no acute distress. Head: Normocephalic, atraumatic Eyes: PERRLA, EOMI ENT: Airway patent Chest: Nonlabored breathing Skin: No visual rash, normal skin tone Neuro: Alert and oriented 3 Musculoskeletal: No gross abnormalities (Casey Amezcua) Course Vital Signs 05/23/24 17:43 Temperature 98.0 F Pulse Rate 108 H Respiratory 18 Rate Blood Pressure 124/77 O2 Sat by Pulse 95 Oximetry Medical Decision Making <Casey Amezcua - Last Filed: 05/23/24 17:42> - Lab Data Result diagrams: 05/23/24 18:04 05/23/24 18:04 <Omar Barrios - Last Filed: 05/23/24 20:09> - Medical Decision Making I completed the quick note portion of this chart signed FABIOLA Redmond (Casey Amezcua) Was pt. sent in by a medical professional or institution ([facility]IR[facility] Hurtado, CAE ENGINEER, urgent care, hospital, or [place] health care facility...) When possible be specific @ -No Did you speak to anyone other than the patient for history (EMS, parent, family, police, friend...)? What history was obtained from this source @ -No Did you review nursing and triage notes (agree or disagree)? Why? @ -I reviewed and agree with nursing and triage notes Were old charts reviewed (outside hosp., previous admission, EMS record, old EKG, old radiological studies, urgent care reports/EKG's, [place] health care facility records)? Report findings @ -No old charts were reviewed Differential Chest Pain: Stable Angina, Unstable Angina, STEMI, NSTEMI Aortic Dissection, Pneumothorax, Musculoskeletal, Esophageal Spasm GERD, Cholecystitis, Pancreatitis, Zoster, this is not meant to be an all-inclusive list. EKG interpreted by me (3pts min.). @ -Sinus tachycardia rate of 103, OR interval 132, QRS duration 101, QTc [address] segment elevation. X-rays interpreted by me (1pt min.). @ -Chest x-ray negative for acute cardiopulmonary finding CT interpreted by me (1pt min.). @ -None done U/S interpreted by me (1pt. min.). @ -None done What testing was considered but not performed or refused? (CT, X-rays, U/S, labs)? Why? @ -None What meds were considered but not given or refused? Why? @ -None Did you discuss the management of the patient with other professionals (professionals i.e. Dr., PA, CAE ENGINEER, lab, RT, psych nurse, social insurance administrator, milled rice broker, teacher, probation and parole officer, case coordinator)? Give summary @Mirela debbie for [facility]. Was smoking cessation discussed for >3mins.? @ -No Was critical care preformed (if so, how long)? @ -No Were there social determinants of health that impacted care today? How? (Homelessness, low income, unemployed, alcoholism, drug addiction, transportation, low edu. Level, literacy, decrease access to med. care, [facility], rehab)? @ -No Was there de-escalation of care discussed even if they declined (Discuss DNR or withdrawal of care, Hospice)? DNR status @ -No What co-morbidities impacted this encounter? (DM, HTN, Smoking, COPD, CAD, Cancer, CVA, ARF, Chemo, Hep., AIDS, mental health diagnosis, sleep apnea, morbid obesity)? @Alcohol abuse Was patient admitted / discharged? Hospital course, mention meds given and route, prescriptions, significant lab abnormalities, going to OR and other pertinent info. @ -54-year-old male with alcohol intoxication, chest pain, patient's alcohol level is 280. He is voicing desire to abstain from alcohol he will be kept for alcohol withdrawal protocol and cardiac enzymes will be trended to ensure that they remain 0. His laboratory testing in the emergency department is unremarkable. EKG is sinus tach at [address] segment changes. Chest x-ray is clear. Undiagnosed new problem with uncertain prognosis? @ -No Drug Therapy requiring intensive monitoring for toxicity (Heparin, Nitro, Insulin, Cardizem)? @ -No Were any procedures done? @ -No Diagnosis/symptom? @ -Chest pain, alcohol intoxication Acute, or Chronic, or Acute on Chronic? @ -Acute Uncomplicated (without systemic symptoms) or Complicated (systemic symptoms)? @ -[Complicated Side effects of treatment? @ -No Exacerbation, Progression, or Severe Exacerbation? @ -No Poses a threat to life or bodily function? How? (Chest pain, USA, AR, pneumonia, PE, COPD, DKA, ARF, appy, cholecystitis, CVA, Diverticulitis, Homicidal, Suicidal, threat to staff... and all critical care pts) @Yes, delirium tremens, ACS (Omar Barrios) - Lab Data Lab Results 05/23/24 05/23/24 05/23/24 Range/Units 18:04 18:04 18:04 WBC 9.5 (3.8-10.6) k/uL RBC 4.75 (4.30-5.90) m/uL Hgb 16.5 (13.0-17.5) gm/dL Hct 47.9 (39.0-53.0) % MCV 100.7 H (80.0-100.0) fL MCH 34.7 (25.0-35.0) pg MCHC 34.4 (31.0-37.0) g/dL RDW 14.2 (11.5-15.5) % Plt Count 218 (150-450) k/uL MPV 7.5 Neutrophils % 63 % Lymphocytes % 24 % Monocytes % 6 % Eosinophils % 5 % Basophils % 1 % Neutrophils # 6.0 (1.3-7.7) k/uL Lymphocytes # 2.3 (1.0-4.8) k/uL Monocytes # 0.6 (0-1.0) k/uL Eosinophils # 0.4 (0-0.7) k/uL Basophils # 0.1 (0-0.2) k/uL Macrocytosis Slight PT 10.5 (10.0-12.5) sec INR 0.9 (<1.2) APTT 22.4 (22.0-30.0) sec Sodium 138 (137-145) mmol/L Potassium 4.0 (3.5-5.1) mmol/L Chloride 103 (98-107) mmol/L Carbon Dioxide 21 L (22-30) mmol/L Anion Gap 14 mmol/L BUN 13 (9-20) mg/dL Creatinine 0.88 (0.66-1.25) mg/dL Est GFR (CKD-EPI)AfAm >90 (>60 ml/min/1.73 sqM) Est GFR (CKD-EPI)NonAf >90 (>60 ml/min/1.73 sqM) Glucose 115 H (74-99) mg/dL Plasma Lactic Acid Beltran (0.7-2.0) mmol/L Calcium 8.6 (8.4-10.2) mg/dL Magnesium 2.1 (1.6-2.3) mg/dL Total Bilirubin 1.2 (0.2-1.3) mg/dL AST 64 H (17-59) U/L ALT 55 H (4-49) U/L Alkaline Phosphatase 51 (38-126) U/L Troponin I (0.000-0.034) ng/mL Total Protein 6.3 (6.3-8.2) g/dL Albumin 4.1 (3.5-5.0) g/dL Urine Color Urine Appearance (Clear) Urine pH (5.0-8.0) Ur Specific Stow (1.001-1.035) Urine Protein (Negative) Urine Glucose (UA) (Negative) Urine Ketones (Negative) Urine Blood (Negative) Urine Nitrite (Negative) Urine Bilirubin (Negative) Urine Urobilinogen (<2.0) mg/dL Ur Leukocyte Esterase (Negative) Serum Alcohol 285 H* mg/dL 05/23/24 05/23/24 05/23/24 Range/Units 18:04 18:45 18:46 WBC (3.8-10.6) k/uL RBC (4.30-5.90) m/uL Hgb (13.0-17.5) gm/dL Hct (39.0-53.0) % MCV (80.0-100.0) fL MCH (25.0-35.0) pg MCHC (31.0-37.0) g/dL RDW (11.5-15.5) % Plt Count (150-450) k/uL MPV Neutrophils % % Lymphocytes % % Monocytes % % Eosinophils % % Basophils % % Neutrophils # (1.3-7.7) k/uL Lymphocytes # (1.0-4.8) k/uL Monocytes # (0-1.0) k/uL Eosinophils # (0-0.7) k/uL Basophils # (0-0.2) k/uL Macrocytosis PT (10.0-12.5) sec INR (<1.2) APTT (22.0-30.0) sec Sodium (137-145) mmol/L Potassium (3.5-5.1) mmol/L Chloride (98-107) mmol/L Carbon Dioxide (22-30) mmol/L Anion Gap mmol/L BUN (9-20) mg/dL Creatinine (0.66-1.25) mg/dL Est GFR (CKD-EPI)AfAm (>60 ml/min/1.73 sqM) Est GFR (CKD-EPI)NonAf (>60 ml/min/1.73 sqM) Glucose (74-99) mg/dL Plasma Lactic Acid Beltran 1.8 (0.7-2.0) mmol/L Calcium (8.4-10.2) mg/dL Magnesium (1.6-2.3) mg/dL Total Bilirubin (0.2-1.3) mg/dL AST (17-59) U/L ALT (4-49) U/L Alkaline Phosphatase (38-126) U/L Troponin I <0.012 (0.000-0.034) ng/mL Total Protein (6.3-8.2) g/dL Albumin (3.5-5.0) g/dL Urine Color Colorless Urine Appearance Clear (Clear) Urine pH 6.0 (5.0-8.0) Ur Specific Stow 1.006 (1.001-1.035) Urine Protein Negative (Negative) Urine Glucose (UA) Negative (Negative) Urine Ketones Negative (Negative) Urine Blood Negative (Negative) Urine Nitrite Negative (Negative) Urine Bilirubin Negative (Negative) Urine Urobilinogen <2.0 (<2.0) mg/dL Ur Leukocyte Esterase Negative (Negative) Serum Alcohol mg/dL Disposition <Casey Amezcua - Last Filed: 05/23/24 17:42> Is patient prescribed a controlled substance at d/c from ED?: No Time of Disposition: 20:09 <Omar Barrios - Last Filed: 05/23/24 20:09> Clinical Impression: Chest pain, EtOH dependence Disposition: ADMITTED IP TO THIS HOSP Condition: Stable Referrals: Guillermina Perla MD [Primary Care Provider] - 1-2 days
[2024-05-23 18:48] LABS: ALT 55 U/L (4-49); AST 64 U/L (17-59); African American GFR (CKD) >90 (>60 ml/min/1.73 sqM); Albumin 4.1 g/dL (3.5-5.0); Alkaline Phosphatase 51 U/L (38-126); Anion Gap 14 mmol/L; Blood Urea Nitrogen 13 mg/dL (9-20); Calcium 8.6 mg/dL (8.4-10.2); Carbon Dioxide 21 mmol/L (22-30); Chloride 103 mmol/L (98-107); Glucose 115 mg/dL (74-99); Magnesium 2.1 mg/dL (1.6-2.3); Non-African American GFR(CKD) >90 (>60 ml/min/1.73 sqM); Sodium 138 mmol/L (137-145); Total Bilirubin 1.2 mg/dL (0.2-1.3); Total Protein 6.3 g/dL (6.3-8.2)
[2024-05-23 18:49] LABS: Basophils # (A) 0.1 k/uL (0-0.2); Basophils % (A) 1 %; Eosinophils # (A) 0.4 k/uL (0-0.7); Eosinophils % (A) 5 %; HCT 47.9 % (39.0-53.0); HGB 16.5 gm/dL (13.0-17.5); Lymphocytes # (A) 2.3 k/uL (1.0-4.8); Lymphocytes % (A) 24 %; MCH 34.7 pg (25.0-35.0); MCHC 34.4 g/dL (31.0-37.0); MCV 100.7 fL (80.0-100.0); Macrocytosis Slight; Mean Platelet Volume 7.5; Monocytes # (A) 0.6 k/uL (0-1.0); Monocytes % (A) 6 %; Neutrophils % (A) 63 %; Platelet Count 218 k/uL (150-450); RBC 4.75 m/uL (4.30-5.90); RDW 14.2 % (11.5-15.5); WBC 9.5 k/uL (3.8-10.6)
[2024-05-23 18:50] LABS: INR 0.9 (<1.2); Partial Thromboplastin Time 22.4 sec (22.0-30.0); Prothrombin Time 10.5 sec (10.0-12.5)
--- NOTE | 2024-05-23 18:58 | XR ---
EXAMINATION TYPE: XR chest 2V DATE OF EXAM: 05/23/2024 6:45 PM COMPARISON: Chest radiographs from 11/20/2023 CLINICAL INDICATION: Male, 54 years old with history of Chest pain, dyspnea; TECHNIQUE: XR chest 2V Frontal and lateral views of the chest. FINDINGS: Lungs/Pleura: There is no evidence of pleural effusion, focal consolidation, or pneumothorax. Pulmonary vascularity: Unremarkable. Heart/mediastinum: Cardiomediastinal silhouette is unremarkable. Musculoskeletal: No acute osseous pathology. IMPRESSION: No acute cardiopulmonary disease/process. [facility], , 05/23/2024 6:55 PM
[2024-05-23 19:13] LABS: Alcohol 285 mg/dL
[2024-05-23 19:37] LABS: Appearance,Urine Clear (Clear); Bilirubin,Urine Negative (Negative); Blood,Urine Negative (Negative); Color,Urine Colorless; Glucose,Urine (UA) Negative (Negative); Ketones,Urine Negative (Negative); Leukocyte Esterase,Urine Negative (Negative); Nitrite,Urine Negative (Negative); Protein,Urine Negative (Negative); Specific Gravity,Urine 1.006 (1.001-1.035); Urobilinogen,Urine <2.0 mg/dL (<2.0)
[2024-05-23] MEDS ORDERED: LORazepam 2 MG/ML INJ IV PRN ×2 (20:02)
[2024-05-23] MEDS ORDERED: NALOXONE 0.4 MG/ML 1 ML VIAL IV PRN (20:03)
[2024-05-23] MEDS: THIAMINE 100 MG/ML 2 ML VIAL IM STA (20:22)
[2024-05-23] MEDS: SODIUM CHLORIDE 0.9% 1,000 ML IV SCH (20:24)
[2024-05-23] MEDS: LORazepam 2 MG/ML INJ IV PRN (23:53)
[2024-05-24] MEDS ORDERED: LORazepam 1 MG/0.5 ML VIAL IV PRN ×2 (08:21)
[2024-05-24] MEDS: ATORVASTATIN 10 MG TAB PO SCH (08:56)
[2024-05-24] MEDS: chlordiazePOXIDE 25 MG CAP PO SCH (08:56)
[2024-05-24] MEDS: FLUoxetine HCL 20 MG CAP PO SCH (08:56)
[2024-05-24] MEDS: LORazepam 1 MG/0.5 ML VIAL IV ONE (08:56)
[2024-05-24] MEDS: ONDANSETRON 4 MG/2 ML VIAL IVP PRN (12:20)
--- NOTE | 2024-05-24 13:20 | P.HPIM ---
History of Present Illness 54-year-old male with history of alcohol abuse came in with complaints of epigastric discomfort tightness intermittent nonradiating. Patient had troponins that were negative EKG did not show any significant abnormality. Patient mainly came in because of his withdrawals every single morning he has to drink alcohol to make his symptoms better patient drinks about 1 pint of hard liquor every day. Patient denied any fever chills. Patient was complaining of nausea. EKG showed sinus tachycardia without any acute ST-T wave changes. Patient is willing to quit alcohol patient likes to break the cycle of of withdrawals and drinking. Patient was intoxicated when he came in with serum alcohol level level 350. REVIEW OF SYSTEMS: All other systems are negative except those mentioned in the HPI PHYSICAL EXAMINATION: GENERAL: The patient is alert and oriented x3, not in any acute distress. Well developed, well nourished. HEENT: Pupils are round and equally reacting to light. EOMI. No scleral icterus. No conjunctival pallor. Normocephalic, atraumatic. No pharyngeal erythema. No thyromegaly. CARDIOVASCULAR: S1 and S2 present. No murmurs, rubs, or gallops. PULMONARY: Chest is clear to auscultation, no wheezing or crackles. ABDOMEN: Soft, nontender, nondistended, normoactive bowel sounds. No palpable organomegaly. MUSCULOSKELETAL: No joint swelling or deformity. EXTREMITIES: No cyanosis, clubbing, or pedal edema. NEUROLOGICAL: Gross neurological examination did not reveal any focal deficits. SKIN: No rashes. Assessment and plan -Acute alcohol withdrawals: Patient is on CIWA protocol Librium, Ativan as per the protocol. Patient receiving IV fluids. -Alcohol abuse: Counseling was provide social work will be consulted patient is willing to quit alcohol just need help with withdrawals -Sinus tachycardia on admission secondary to dehydration which improved with IV fluids -Alcoholic gastritis for which patient was started on Protonix -Alcoholic hepatitis expected to improve with cessation of alcohol DVT prophylaxis: Lovenox text Past Medical History Past Medical History: Hyperlipidemia Additional Past Medical History / Comment(s): HAD SEIZURES WHEN BABY STATED HE TOOK MEDS TILL ABOUT AGE 6-no seizures since History of Any Multi-Drug Resistant Organisms: None Reported Past Surgical History: Hernia Repair Additional Past Surgical History / Comment(s): RT INGUINAL HERNIA REPAIR skin ca removed lft shoulder Past Anesthesia/Blood Transfusion Reactions: No Reported Reaction Additional Past Anesthesia/Blood Transfusion Reaction / Comment(s): CLAUSTERPHOBIA Past Psychological History: Anxiety, Depression Additional Psychological History / Comment(s): 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 NO PETS. NO SERVICE IN PAST. 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 NO HOME CARES SERVICES, NO MEDICAL EQUIPMENT EXCEPT FOR BP MONITOR. Smoking Status: Current every day smoker, Vaper Past Alcohol Use History: Daily Additional Past Alcohol Use History / Comment(s): STARTED SMOKING AT AGE 17, SMOKES 1PPD. Past Drug Use History: None Reported - Past Family History Mother Family Medical History: Hypertension Father Family Medical History: No Reported History Medications and Allergies Home Medications Medication Instructions Recorded Confirmed Type hydrOXYzine HCL [Atarax] 25 mg PO BID PRN 11/20/23 05/23/24 History Atorvastatin [Lipitor] 10 mg PO DAILY 05/23/24 05/23/24 History FLUoxetine HCL [PROzac] 20 mg PO DAILY 05/23/24 05/23/24 History Naltrexone HCl [Revia] 50 mg PO DAILY PRN 05/23/24 05/23/24 History Naltrexone Microspheres [Vivitrol] 380 mg IM Q28D 05/23/24 05/23/24 History Allergies Allergy/AdvReac Type Severity Reaction Status Date / Time bupropion HCl Allergy Rash/Hives Verified 05/23/24 21:09 [From Wellbutrin] Penicillins Allergy Unknown Verified 05/23/24 21:10 Childhood Physical Exam Vitals: Vital Signs Temp Pulse Pulse Resp BP BP Pulse Ox 05/24/24 08:00 18 05/24/24 07:00 97.8 F 101 H 18 140/93 98 05/24/24 06:18 85 18 132/83 05/24/24 00:51 93 16 05/23/24 22:08 91 18 119/78 05/23/24 20:16 90 16 133/85 97 05/23/24 17:43 98.0 F 108 H 18 124/77 95 Intake and Output 05/23/24 05/24/24 05/24/24 22:59 06:59 14:59 Other: Voiding Method Toilet Weight 83.007 kg 83.007 kg Results CBC & Chem 7: 05/23/24 18:04 05/23/24 18:04 Labs: Abnormal Lab Results - Last 24 Hours (Table) 05/23/24 05/23/24 Range/Units 18:04 18:04 MCV 100.7 H (80.0-100.0) fL Carbon Dioxide 21 L (22-30) mmol/L Glucose 115 H (74-99) mg/dL AST 64 H (17-59) U/L ALT 55 H (4-49) U/L Serum Alcohol 285 H* mg/dL Thrombosis Risk Factor Assmnt - Choose All That Apply Any of the Below Risk Factors Present?: Yes Each Factor Represents 1 point: Age 41-60 years, Obesity (BMI >25) Thrombosis Risk Factor Assessment Total Risk Factor Score: 2 Thrombosis Risk Factor Assessment Level: Low Risk
[2024-05-24] MEDS: LORazepam 1 MG/0.5 ML VIAL IV PRN (14:08)
[2024-05-24] MEDS: PANTOPRAZOLE 40 MG/10 ML VIAL IVP SCH (14:13)
[2024-05-24] MEDS: THIAMINE 100 MG TAB PO SCH (18:11)
[2024-05-25 07:55] VITALS: BP 136/88; PULSE 80; RESP 17; TEMP 97.8
--- NOTE | 2024-05-27 09:21 | P.DS ---
Providers Date of admission: 05/23/24 20:06 Attending physician: Lidia Santoro Primary care physician: Guillermina Perla Hospital Course: Final Diagnosis -Acute alcohol withdrawals: Patient is on [facility] protocol Librium, Ativan as per the protocol. Patient receiving IV fluids. -Alcohol abuse: Counseling was provide social work will be consulted patient is willing to quit alcohol just need help with withdrawals -Sinus tachycardia on admission secondary to dehydration which improved with IV fluids -Alcoholic gastritis for which patient was started on Protonix -Alcoholic hepatitis expected to improve with cessation of alcohol Discharge Disposition Patient stable for discharge home patient to continue a 5-day Librium taper and recommended to resume his naltrexone once is completed with a Librium taper. Patient to follow-up with his PCP Dr. Guillermina Perla in 1 to 2 days. Hospital Course 54-year-old male with history of alcohol abuse came in with complaints of epigastric discomfort tightness intermittent nonradiating. Patient had troponins that were negative EKG did not show any significant abnormality. Patient mainly came in because of his withdrawals every single morning he has to drink alcohol to make his symptoms better patient drinks about 1 pint of hard liquor every day. Patient denied any fever chills. Patient was complaining of nausea. EKG showed sinus tachycardia without any acute ST-T wave changes. Patient is willing to quit alcohol patient likes to break the cycle of of withdrawals and drinking. Patient was intoxicated when he came in with serum alcohol level level 350. Patient was monitored overnight not having any significant withdrawals and would like to discharge home. He is given a 5-day Librium taper and recommended that once he completes Librium taper to resume the naltrexone. Please see medication reconciliation for a list of current medications. Thank you for allowing us to participate in the care of this patient. The impression and plan of care has been dictated by Mirela Amador, Nurse Practitioner as directed. Dr. Manda MD I have performed a history and physical examination and medical decision making of this patient, discussed the same with the dictator, and agree with the dictators assessment and plan as written, documented as a scribe. Based on total visit time, I have performed more than 50% of this visit. Patient Condition at Discharge: Stable Plan - Discharge Summary New Discharge Prescriptions: New chlordiazePOXIDE HCl [Librium] 25 mg PO DIRECTED 5 Days #9 capsule No Action Naltrexone HCl [Revia] 50 mg PO DAILY PRN PRN Reason: cravings Naltrexone Microspheres [Vivitrol] 380 mg IM Q28D hydrOXYzine HCL [Atarax] 25 mg PO BID PRN PRN Reason: Anxiety Atorvastatin [Lipitor] 10 mg PO DAILY FLUoxetine HCL [PROzac] 20 mg PO DAILY Discharge Medication List hydrOXYzine HCL [Atarax] 25 mg PO BID PRN 11/20/23 [History] Atorvastatin [Lipitor] 10 mg PO DAILY 05/23/24 [History] FLUoxetine HCL [PROzac] 20 mg PO DAILY 05/23/24 [History] Naltrexone HCl [Revia] 50 mg PO DAILY PRN 05/23/24 [History] Naltrexone Microspheres [Vivitrol] 380 mg IM Q28D 05/23/24 [History] chlordiazePOXIDE HCl [Librium] 25 mg PO DIRECTED 5 Days #9 capsule 05/25/24 [Rx] Follow up Appointment(s)/Referral(s): Guillermina Perla MD [Primary Care Provider] - 1-2 days Patient Instructions/Handouts: Abuse of Alcohol (ED), Abuse of Alcohol (DC), Alcohol Withdrawal (ED), Alcohol Withdrawal (DC), Alcohol Dependence (ED), Alcohol Dependence (DC) Activity/Diet/Wound Care/Special Instructions: FOLLOW UP ADVISED, SOONER IF PROBLEMS OR CONCERNS. Hold the naltrexone for now until have completed the librium taper Discharge/Stand Alone Forms: AA [facility] [place], Who Do I Call?, Community Resources, Outpatient Counseling, In Substance Abuse Facilities Discharge Disposition: HOME SELF-CARE
== END 2024-05-25 12:15 | disposition home or self-care (01) ==
LOC: EC 17:05 → 6NMEDSUR 20:06
PROVIDERS: ADMIT Hospitalist; ATTEND Hospitalist
DX: R07.89 Other chest pain (principal); F10.239 Alcohol dependence with withdrawal, unspecified; E86.0 Dehydration; R00.0 Tachycardia, unspecified; K70.10 Alcoholic hepatitis without ascites; K29.20 Alcoholic gastritis without bleeding; E78.5 Hyperlipidemia, unspecified; F41.9 Anxiety disorder, unspecified; F32.A Depression, unspecified; F17.290 Nicotine dependence, other tobacco product, uncomplicated; Y90.8 Blood alcohol level of 240 mg/100 ml or more; Z79.899 Other long term (current) drug therapy; Z88.0 Allergy status to penicillin
CPT/HCPCS: 96376 ×2; 96375; 96372; 96374; 99285; 36415; 93005; 80053; 83605; 83735; 84484; 85025; 85610; 85730; 81003; 71046; G0378 ×3; G0480; J2060 ×2; J3411; J2405; J2470 ×2; 80320

== ENCOUNTER 2024-06-23 10:34 | Inpatient (IN) | payer OTHER ==
--- NOTE | 2024-06-23 10:53 | ED ---
General Adult HPI - General Chief complaint: Alcohol Stated complaint: ETOH Time Seen by Provider: 06/23/24 10:37 Source: patient, EMS, RN notes reviewed Mode of arrival: EMS Limitations: no limitations - History of Present Illness Initial comments: Patient is a 54-year-old male present to the emergency department with concerns for alcohol withdrawal. Patient drinks around a pint of vodka daily. Last alcohol was around 7 PM. Patient states he was actually here a few weeks ago with similar problems. Patient is concerned he is withdrawing. Patient has nausea and vomiting. Patient feels shaky. Patient has palpitations. - Related Data Home Medications Medication Instructions Recorded Confirmed hydrOXYzine HCL [Atarax] 25 mg PO BID PRN 11/20/23 06/23/24 Atorvastatin [Lipitor] 10 mg PO DAILY 05/23/24 06/23/24 Naltrexone Microspheres [Vivitrol] 380 mg IM Q28D 05/23/24 06/23/24 Ergocalciferol (Vitamin D2) 1,250 mcg PO MO 06/23/24 06/23/24 [Drisdol (50,000 Iu)] FLUoxetine HCL [PROzac] 40 mg PO DAILY 06/23/24 06/23/24 Allergies Allergy/AdvReac Type Severity Reaction Status Date / Time bupropion HCl Allergy Rash/Hives Verified 06/23/24 11:25 [From Wellbutrin] Penicillins Allergy Unknown Verified 06/23/24 11:25 Childhood Review of Systems ROS Statement: Those systems with pertinent positive or pertinent negative responses have been documented in the HPI. ROS Other: All systems not noted in ROS Statement are negative. Constitutional: Denies: fever Eyes: Denies: eye pain ENT: Denies: ear pain Cardiovascular: Reports: palpitations. Denies: chest pain Gastrointestinal: Reports: nausea, vomiting Past Medical History Past Medical History: Hyperlipidemia Additional Past Medical History / Comment(s): HAD SEIZURES WHEN BABY STATED HE TOOK MEDS TILL ABOUT AGE 6-no seizures since History of Any Multi-Drug Resistant Organisms: None Reported Past Surgical History: Hernia Repair Additional Past Surgical History / Comment(s): RT INGUINAL HERNIA REPAIR skin ca removed lft shoulder Past Anesthesia/Blood Transfusion Reactions: No Reported Reaction Additional Past Anesthesia/Blood Transfusion Reaction / Comment(s): CLAUSTERPHOBIA Past Psychological History: Anxiety, Depression Smoking Status: Current every day smoker, Vaper Past Alcohol Use History: Daily Past Drug Use History: None Reported - Past Family History Mother Family Medical History: Hypertension Father Family Medical History: No Reported History General Exam Limitations: no limitations General appearance: alert Head exam: Present: normocephalic Eye exam: Present: normal appearance Neck exam: Present: normal inspection Respiratory exam: Present: normal lung sounds bilaterally Cardiovascular Exam: Present: tachycardia GI/Abdominal exam: Present: soft. Absent: tenderness Extremities exam: Present: normal inspection. Absent: pedal edema, calf tenderness Neurological exam: Present: alert Psychiatric exam: Present: normal affect, normal mood Skin exam: Present: normal color Course Vital Signs 06/23/24 06/23/24 06/23/24 10:36 11:03 11:35 Temperature 98.1 F Pulse Rate 102 H 84 95 Respiratory 30 H 24 20 Rate Blood Pressure 148/95 117/103 142/87 O2 Sat by Pulse 100 98 Oximetry EKG Findings - EKG Results: EKG: interpreted by ERMD (Left axis), sinus rhythm, normal QRS, normal ST/T Medical Decision Making - Medical Decision Making Was pt. sent in by a medical professional or institution (, PA, BOARDING SPECIALIST, urgent care, hospital, or long term...) When possible be specific @ -No Did you speak to anyone other than the patient for history (EMS, parent, family, police, friend...)? What history was obtained from this source @ -No Did you review nursing and triage notes (agree or disagree)? Why? @ -I reviewed and agree with nursing and triage notes Were old charts reviewed (outside hosp., previous admission, EMS record, old EKG, old radiological studies, urgent care reports/EKG's, long term records)? Report findings @ -Previous admission reviewed where patient was seen for alcohol withdrawal Differential Diagnosis (chest pain, altered mental status, abdominal pain women, abdominal pain men, vaginal bleeding, weakness, fever, dyspnea, syncope, headache, dizziness, GI bleed, back pain, seizure, CVA, palpatations, mental health, musculoskeletal)? @ -Differential Dizziness: Benign paroxysmal positional Vertigo, Meniere's disease, otitis media, acoustic neuroma, vertebrobasilar insufficiency, cerebellar stroke, encephalitis, hypovolemic, arrhythmia, coronary artery syndrome, anemia, this is not meant to be an all-inclusive list EKG interpreted by me (3pts min.). @ -As above X-rays interpreted by me (1pt min.). @ -None done CT interpreted by me (1pt min.). @ -None done U/S interpreted by me (1pt. min.). @ -None done What testing was considered but not performed or refused? (CT, X-rays, U/S, labs)? Why? @ -None What meds were considered but not given or refused? Why? @ -None Did you discuss the management of the patient with other professionals (samantha brink i.e. , PA, BOARDING SPECIALIST, lab, RT, psych nurse, licensed social worker, wine and spirits clerk, teacher, juvenile corrections officer, family service caseworker)? Give summary @ -Case was discussed with Dr. Palma who will admit covering for Dr. Horn ellis Was smoking cessation discussed for >3mins.? @ -No Was critical care preformed (if so, how long)? @ -No Were there social determinants of health that impacted care today? How? (Homelessness, low income, unemployed, alcoholism, drug addiction, transportation, low edu. Level, literacy, decrease access to med. care, long-term, rehab)? @ -No Was there de-escalation of care discussed even if they declined (Discuss DNR or withdrawal of care, Hospice)? DNR status @ -No What co-morbidities impacted this encounter? (DM, HTN, Smoking, COPD, CAD, Cancer, CVA, ARF, Chemo, Hep., AIDS, mental health diagnosis, sleep apnea, morbid obesity)? @ -Chronic alcohol use Was patient admitted / discharged? Hospital course, mention meds given and route, prescriptions, significant lab abnormalities, going to OR and other pertinent info. @ -Patient presents with concerns for alcohol withdrawal. Patient is shaky and appears little uncomfortable. CIWA score was 15. Patient will be admitted. Patient reevaluated and updated. Patient has received 3 of Ativan already. Undiagnosed new problem with uncertain prognosis? @ -No Drug Therapy requiring intensive monitoring for toxicity (Heparin, Nitro, Insuli n, Cardizem)? @ -No Were any procedures done? @ -No Diagnosis/symptom? @ -Alcohol withdrawal acute Acute, or Chronic, or Acute on Chronic? @ -Acute Uncomplicated (without systemic symptoms) or Complicated (systemic symptoms)? @ -Complicated with CO2 of 12 Side effects of treatment? @ -No Exacerbation, Progression, or Severe Exacerbation? @ -No Poses a threat to life or bodily function? How? (Chest pain, USA, CT, pneumonia, PE, COPD, DKA, ARF, appy, cholecystitis, CVA, Diverticulitis, Homicidal, Suicidal, threat to staff... and all critical care pts) @ -No - Lab Data Result diagrams: 06/23/24 10:52 06/23/24 10:52 Lab Results 06/23/24 06/23/24 Range/Units 10:52 10:52 WBC 5.85 (4.50-10.00) 10*3/uL RBC 4.65 (4.40-5.60) 10*6/uL Hgb 15.9 (13.0-17.0) g/dL Hct 44.5 (39.6-50.0) % MCV 95.7 (80.0-97.0) fL MCH 34.2 H (27.0-32.0) pg MCHC 35.7 (32.0-37.0) g/dL Plt Count 146 (140-440) 10*3/uL MPV 9.2 L (9.5-12.2) fL Immature Gran % (Auto) 0.3 % Neutrophils % 53.1 % Lymphocytes % 32.6 % Monocytes % 9.4 % Eosinophils % 3.4 % Basophils % 1.2 % Immature Gran # 0.02 (0.00-0.04) 10*3/uL Neutrophils # 3.10 (1.80-7.70) 10*3/uL Lymphocytes # 1.91 (0.90-5.00) 10*3/uL Monocytes # 0.55 (0.20-1.00) 10*3/uL Eosinophils # 0.20 (0.04-0.35) 10*3/uL Basophils # 0.07 (0.00-0.10) 10*3/uL Sodium 137 (137-145) mmol/L Potassium 3.7 (3.5-5.1) mmol/L Chloride 104 (98-107) mmol/L Carbon Dioxide 12 L (22-30) mmol/L Anion Gap 21 mmol/L BUN 10 (9-20) mg/dL Creatinine 0.82 (0.66-1.25) mg/dL Est GFR (CKD-EPI)AfAm >90 (>60 ml/min/1.73 sqM) Est GFR (CKD-EPI)NonAf >90 (>60 ml/min/1.73 sqM) Glucose 125 H (74-99) mg/dL Calcium 8.8 (8.4-10.2) mg/dL Magnesium 1.6 (1.6-2.3) mg/dL Total Bilirubin 2.0 H (0.2-1.3) mg/dL AST 119 H (17-59) U/L ALT 62 H (4-49) U/L Alkaline Phosphatase 62 (38-126) U/L Total Protein 6.4 (6.3-8.2) g/dL Albumin 4.3 (3.5-5.0) g/dL Serum Alcohol 89 mg/dL Disposition Clinical Impression: Alcohol withdrawal syndrome Disposition: ADMITTED IP TO THIS HOSP Is patient prescribed a controlled substance at d/c from ED?: No Referrals: Guillermina Perla MD [Primary Care Provider] - 1-2 days Forms: AA Meetings [facility] Substance Abuse Facilities Time of Disposition: 13:55
[2024-06-23] MEDS: LORazepam 2 MG/ML INJ IV STA ×2 (10:55→13:14)
[2024-06-23] MEDS: SODIUM CHLORIDE 0.9% 1,000 ML IV STA (10:56)
[2024-06-23] MEDS: FAMOTIDINE 20 MG/2 ML VIAL IV STA (10:57)
[2024-06-23] MEDS: ONDANSETRON 4 MG/2 ML VIAL IVP STA (10:57)
[2024-06-23] MEDS: THIAMINE 100 MG/ML 2 ML VIAL IM STA (11:01)
[2024-06-23 11:02] LABS: Basophils # (A) 0.07 10*3/uL (0.00-0.10); Basophils % (A) 1.2 %; Eosinophils % (A) 3.4 %; HCT 44.5 % (39.6-50.0); HGB 15.9 g/dL (13.0-17.0); Lymphocytes # (A) 1.91 10*3/uL (0.90-5.00); Lymphocytes % (A) 32.6 %; MCH 34.2 pg (27.0-32.0); MCHC 35.7 g/dL (32.0-37.0); MCV 95.7 fL (80.0-97.0); Mean Platelet Volume 9.2 fL (9.5-12.2); Monocytes # (A) 0.55 10*3/uL (0.20-1.00); Monocytes % (A) 9.4 %; Neutrophils % (A) 53.1 %; Platelet Count 146 10*3/uL (140-440); RBC 4.65 10*6/uL (4.40-5.60); RDW 12.9 % (11.5-14.5); WBC 5.85 10*3/uL (4.50-10.00)
[2024-06-23 11:14] LABS: ALT 62 U/L (4-49); AST 119 U/L (17-59); African American GFR (CKD) >90 (>60 ml/min/1.73 sqM); Albumin 4.3 g/dL (3.5-5.0); Alkaline Phosphatase 62 U/L (38-126); Anion Gap 21 mmol/L; Blood Urea Nitrogen 10 mg/dL (9-20); Calcium 8.8 mg/dL (8.4-10.2); Carbon Dioxide 12 mmol/L (22-30); Chloride 104 mmol/L (98-107); Glucose 125 mg/dL (74-99); Magnesium 1.6 mg/dL (1.6-2.3); Non-African American GFR(CKD) >90 (>60 ml/min/1.73 sqM); Potassium 3.7 mmol/L (3.5-5.1); Sodium 137 mmol/L (137-145); Total Protein 6.4 g/dL (6.3-8.2)
[2024-06-23 11:38] LABS: Alcohol 89 mg/dL
[2024-06-23] MEDS ORDERED: NALOXONE 0.4 MG/ML 1 ML VIAL IV PRN (13:55)
[2024-06-23] MEDS ORDERED: LORazepam 0.5 MG TAB PO PRN (13:56)
[2024-06-23] MEDS ORDERED: LORazepam 1 MG TAB PO PRN ×2 (13:56)
[2024-06-23] MEDS ORDERED: LORazepam 2 MG/ML INJ IV PRN ×4 (13:56→14:56)
[2024-06-23] MEDS: LORazepam 1 MG TAB PO PRN (14:35)
[2024-06-23] MEDS: SODIUM CHLORIDE 0.9% 1,000 ML IV SCH (14:36)
[2024-06-23] MEDS: LORazepam 2 MG/ML INJ IV PRN (15:09)
[2024-06-23] MEDS: ERGOCALCIFEROL 1,250 MCG (50,000 IU) CAPSULE PO SCH (15:21)
--- NOTE | 2024-06-23 17:46 | P.HPIM ---
History of Present Illness H&P Date: 06/23/24 Chief Complaint: Alcohol withdrawal symptoms Patient is a 54-year-old male with a past medical history of hypertension, alcohol abuse, anxiety/depression, currently everyday smoking/vaping and daily alcohol use about 1 and half pint per day presents to ER due to concern for alcohol withdrawal symptoms. Patient's last drink was around 7 PM last night. Patient was previously in the hospital similar complaints. Denied any complaints of chest pain. No shortness of breath. Complains of nauseaof vomiting. Patient states that he feels shaky and having palpitations. Denies any fever or chills. EKG showed sinus rhythm with heart rate 99 Laboratory data showed WBC 5.8 hemoglobin 15.9 and platelets 146 sodium 1 37 potassium 3.7, chloride 104 bicarb is 12 BUN 10 and creatinine 0.82 and blood sugar 125 total bili 2.0 AST 119 ALT 62 and alk phos 62 and serum alcohol level is 89 Review of Systems Constitutional: Patient denies any fever or chills . No generalized weakness or weight loss. Abdomen: Patient d complains of nausea. No vomiting. Denied any diarrhea or and abdominal pain. Cardiovascular: Patient denies any chest pain or short of breath no palpitations. Respiratory: patient denied any cough or sputum production. No shortness of breath Neurologic: Patient denied any numbness or tingling. no headache. Feeling shaky. Musculoskeletal: Patient denies any complaints of joint swelling or deformity. Skin: Negative Psychiatric: Negative Endocrine: No heat or cold intolerance. No recent weight gain. Genitourinary: No dysuria or hematuria. All other 14 point ROS negative except the above Past Medical History Past Medical History: Hyperlipidemia Additional Past Medical History / Comment(s): HAD SEIZURES WHEN BABY STATED HE TOOK MEDS TILL ABOUT AGE 6-no seizures since History of Any Multi-Drug Resistant Organisms: None Reported Past Surgical History: Hernia Repair Additional Past Surgical History / Comment(s): RT INGUINAL HERNIA REPAIR skin ca removed lft shoulder Past Anesthesia/Blood Transfusion Reactions: No Reported Reaction Additional Past Anesthesia/Blood Transfusion Reaction / Comment(s): CLAUSTERPHOBIA Past Psychological History: Anxiety, Depression Smoking Status: Current every day smoker, Vaper Past Alcohol Use History: Daily Past Drug Use History: None Reported - Past Family History Mother Family Medical History: Hypertension Father Family Medical History: No Reported History Medications and Allergies Home Medications Medication Instructions Recorded Confirmed Type hydrOXYzine HCL [Atarax] 25 mg PO BID PRN 11/20/23 06/23/24 History Atorvastatin [Lipitor] 10 mg PO DAILY 05/23/24 06/23/24 History Naltrexone Microspheres [Vivitrol] 380 mg IM Q28D 05/23/24 06/23/24 History Ergocalciferol (Vitamin D2) 1,250 mcg PO MO 06/23/24 06/23/24 History [Drisdol (50,000 Iu)] FLUoxetine HCL [PROzac] 40 mg PO DAILY 06/23/24 06/23/24 History Allergies Allergy/AdvReac Type Severity Reaction Status Date / Time bupropion HCl Allergy Rash/Hives Verified 06/23/24 11: [From Wellbutrin] Penicillins Allergy Unknown Verified 06/23/24 11:25 Childhood Physical Exam Vitals: Vital Signs Temp Pulse Resp BP Pulse Ox 06/23/24 14:37 106 H 20 137/94 95 06/23/24 11:35 95 20 142/87 98 06/23/24 11:03 84 24 117/103 100 06/23/24 10:36 98.1 F 102 H 30 H 148/95 Intake and Output 06/22/24 06/23/24 06/23/24 22:59 06:59 14:59 Other: Weight 86.183 kg PHYSICAL EXAMINATION: Patient is lying in the bed, no acute distress, awake alert and oriented. Patient is feeling shaky and intoxicated.. HEENT: Normocephalic. Neck is supple. Pupils reactive. Nostrils clear. Oral cavity is moist. Neck reveals no JVD, carotid bruits, or thyromegaly. CHEST EXAMINATION: Trachea is central. Symmetrical expansion. Lung fuchs clear to auscultation and percussion. CARDIAC: Normal S1, S2 with no gallops. No murmurs ABDOMEN: Soft. Bowel sounds normal. No organomegaly. No abdominal bruits. Extremities: reveal no edema. No clubbing or cyanosis Neurologically awake, alert, oriented x 2-3 with well-coordinated movements. No focal deficits noted Skin: No rash or skin lesions. Psychiatric: Coperative. Could not be assessed completely Musculoskeletal: No joint swelling or deformity. Normal range of motion. Results CBC & Chem 7: 06/23/24 10:52 06/23/24 10:52 Labs: Abnormal Lab Results - Last 24 Hours (Table) 06/23/24 06/23/24 Range/Units 10:52 10:52 MCH 34.2 H (27.0-32.0) pg MPV 9.2 L (9.5-12.2) fL Carbon Dioxide 12 L (22-30) mmol/L Glucose 125 H (74-99) mg/dL Total Bilirubin 2.0 H (0.2-1.3) mg/dL AST 119 H (17-59) U/L ALT 62 H (4-49) U/L Thrombosis Risk Factor Assmnt - DVT/VTE Prophylaxis DVT/VTE Prophylaxis: Pharmacologic Prophylaxis ordered Assessment and Plan Assessment: Acute alcohol intoxication Acute alcohol withdrawal symptoms Severe alcohol abuse patient drinks about 1 and 1/2 pint of vodka on daily basis Hypomagnesemia Transaminitis possible alcoholic hepatitis Severe smoking/vaping on daily basis Anxiety/depression Hyperlipidemia GI and DVT prophylaxis with heparin subcu and Pepcid Plan: Patient will be continued on IV hydration with normal saline. Continue with thiamine and multivitamins and home medications. Continue to monitor with alco hol withdrawal protocol. Follow-up repeat CBC and CMP. Replace magnesium. Will continue to correctional counselor/case manager the patient for alcohol abstinence. Patient was previously at the rehab. Time with Patient: Greater than 30
[2024-06-23] MEDS: MAGNESIUM SULFATE-D5W PMX 1 GM in DEXTROSE/WATER 1 100ML.BAG IVPB SCH (19:52)
[2024-06-23] MEDS: FAMOTIDINE 20 MG TAB PO SCH (20:49)
[2024-06-23] MEDS ORDERED: LORazepam 1 MG/0.5 ML VIAL IV PRN ×3 (23:09→23:11)
[2024-06-23] MEDS: LORazepam 1 MG/0.5 ML VIAL IV PRN (23:16)
[2024-06-23] MEDS: HEPARIN SODIUM,PORCINE 5,000 UNIT/ML 1 ML VIAL SQ SCH (23:16)
[2024-06-24] MEDS ORDERED: LORazepam 1 MG/0.5 ML VIAL IV PRN (00:26)
[2024-06-24] MEDS ORDERED: LORazepam 0.5 MG TAB PO PRN (00:33)
[2024-06-24] MEDS: LORazepam 1 MG TAB PO PRN (05:38)
[2024-06-24 08:41] LABS: ALT 47 U/L (10-49); AST 63 U/L (14-35); Albumin 3.4 g/dL (3.8-4.9); Albumin/Globulin Ratio 2.27 Ratio (1.60-3.17); Alkaline Phosphatase 48 U/L (41-126); Calcium 7.8 mg/dL (8.7-10.3); Carbon Dioxide 22.5 mmol/L (21.6-31.8); Chloride 104 mmol/L (96-109); Globulin 1.5 g/dL (1.6-3.3); Glucose 105 mg/dL (70-110); Potassium 3.4 mmol/L (3.5-5.5); Sodium 138 mmol/L (135-145); Total Bilirubin 1.7 mg/dL (0.3-1.2); Total Protein 4.9 g/dL (6.2-8.2)
[2024-06-24] MEDS: ACETAMINOPHEN TAB 325 MG TAB PO PRN (08:43)
[2024-06-24] MEDS: MULTIVITAMINS, THERA 1 EACH TAB PO SCH (08:43)
[2024-06-24] MEDS: FLUoxetine HCL 20 MG CAP PO SCH (08:45)
[2024-06-24] MEDS: THIAMINE 100 MG TAB PO SCH (08:45)
[2024-06-24] MEDS: ATORVASTATIN 10 MG TAB PO SCH (08:46)
[2024-06-24] MEDS: ONDANSETRON 4 MG/2 ML VIAL IVP PRN (08:49)
[2024-06-24 09:05] LABS: Eosinophils % (A) 4.8 %; HCT 38.8 % (39.6-50.0); HGB 13.5 g/dL (13.0-17.0); Lymphocytes % (A) 24.5 %; MCH 34.7 pg (27.0-32.0); MCHC 34.8 g/dL (32.0-37.0); MCV 99.7 FL (80.0-97.0); Mean Platelet Volume 9.9 FL (9.5-12.2); Monocytes % (A) 5.5 %; NRBC Per 100 WBC 0 X 10*3/uL (0.00-0.01); Neutrophils % (A) 64.4 %; Platelet Count 106 X 10*3/uL (140-440); RBC 3.89 X 10*6/uL (4.40-5.60); RDW 13.2 % (11.5-14.5); WBC 5.67 X 10*3/uL (4.50-10.00)
[2024-06-24 09:06] LABS: Basophils # (A) 0.02 X 10*3/uL (0.00-0.10); Basophils % (A) 0.4 %; Eosinophils # (A) 0.27 X 10*3/uL (0.04-0.35); Lymphocytes # (A) 1.39 X 10*3/uL (0.90-5.00); Monocytes # (A) 0.31 X 10*3/uL (0.20-1.00); Neutrophils # (A) 3.66 X 10*3/uL (1.80-7.70)
[2024-06-24] MEDS ORDERED: Potassium Replacement Protocol 1 EACH MISC MISCELLANE PRN (09:15)
[2024-06-24] MEDS: POTASSIUM CHLORIDE ER 20 MEQ TAB.ER PO SCH (11:42)
[2024-06-24] MEDS: chlordiazePOXIDE 25 MG CAP PO SCH (11:42)
[2024-06-24] MEDS ORDERED: ONDANSETRON 4 MG/2 ML VIAL IVP PRN (12:09)
[2024-06-24] MEDS: PANTOPRAZOLE 40 MG/10 ML VIAL IVP SCH (13:43)
--- NOTE | 2024-06-24 14:47 | P.PN ---
Subjective Progress Note Date: 06/24/24 Patient is a 54-year-old male with a past medical history of hypertension, alcohol abuse, anxiety/depression, currently everyday smoking/vaping and daily alcohol use about 1 and half pint per day presents to ER due to concern for alcohol withdrawal symptoms. Patient's last drink was around 7 PM last night. Patient was previously in the hospital similar complaints. Denied any complaints of chest pain. No shortness of breath. Complains of nauseaof vomiting. Patient states that he feels shaky and having palpitations. Denies any fever or chills. EKG showed sinus rhythm with heart rate 99 Laboratory data showed WBC 5.8 hemoglobin 15.9 and platelets 146 sodium 1 37 potassium 3.7, chloride 104 bicarb is 12 BUN 10 and creatinine 0.82 and blood sugar 125 total bili 2.0 AST 119 ALT 62 and alk phos 62 and serum alcohol level is 89 06/24/2024 Patient is seen in follow-up today continues on CIWA protocol with p.o. Ativan and does have as needed IV. Patient reporting nausea with shaking although there was no shaking noted on exam. Librium taper being added and will continue CIWA protocol p.o. and encouraged increase activity as tolerated. Patient was maintained on gentle IV hydration and will discontinue as patient is eating and drinking. Continue with supportive care and plan for possible discharge in 24 hours. Discussed with the patient regarding rehab and [facility] they do not work for him. The only thing that helps him is to restart drinking. Discussed with him the importance of withdrawing and complete abstinence from alcohol. Continue monitoring overnight and probable discharge in 24 hours. Discussed with the patient also about getting up and walking more frequently around the halls. Review of systems: Constitutional: No reports of fatigue, fever, or chills Cardiovascular: No reports of chest pain or palpitations Respiratory: No reports of shortness of breath or cough GI: reports of intermittent nausea, denies vomiting, or diarrhea : No reports of dysuria or retention Neurovascular: No reports of weakness or numbness All medications have been reviewed PHYSICAL EXAMINATION: Patient is sitting up in the bed, no acute distress, awake alert and oriented. Patient reports to feeling shaky and somewhat nauseated. Well-developed, appears older than stated age HEENT: Normocephalic. Neck is supple. Pupils reactive. Nostrils clear. Oral cavity is moist. Neck reveals no JVD, carotid bruits, or thyromegaly. CHEST EXAMINATION: Trachea is central. Symmetrical expansion. Lung fuchs clear to auscultation and percussion. CARDIAC: Normal S1, S2 with no gallops. No murmurs ABDOMEN: Soft. Bowel sounds normal. No organomegaly. No abdominal bruits. Extremities: reveal no edema. No clubbing or cyanosis Neurologically awake, alert, oriented x 2-3 with well-coordinated movements. No focal deficits noted Skin: No rash or skin lesions. Psychiatric: Cooperative. Mildly anxious Musculoskeletal: No joint swelling or deformity. Normal range of motion. Assessment: Acute alcohol intoxication with concerns of acute alcohol withdrawal symptoms, maintained on CIWA protocol Severe alcohol abuse patient drinks about 1 and 1/2 pint of vodka on daily basis Hypomagnesemia, replaced and improved Transaminitis likely secondary to alcoholic hepatitis, trending down Severe smoking/vaping on daily basis Anxiety/depression Hyperlipidemia GI and DVT prophylaxis with heparin subcu and Pepcid Full code Plan: Patient will be continued on CIWA protocol and supportive care along with antinausea medication. Slowly increase diet as tolerated Magnesium replaced and improved. Encourage small frequent meals Encouraged increase activity as tolerated and getting up more frequently out of the bed and walking around the unit multiple times throughout the day Strongly encouraged complete alcohol cessation and discussed rehab and patient reports he has no desire to go to rehab and has been there before and it does no t help. Librium taper being started and will adjust CIWA Probable discharge planning in 24 hours The impression and plan of care has been dictated by Soo Wan, Nurse Practitioner as directed. Dr. Titi MD I have performed a history and examination and MDM of this patient, discussed the same with the dictator, and agree with the dictator's assessment and plan as written ,documented as a scribe. Based on total visit time, I have performed more than 50% of the visit. Objective - Vital Signs Vital signs: Vital Signs Temp 97.9 F 06/24/24 07:36 Pulse 86 06/24/24 07:36 Resp 17 06/24/24 07:36 BP 122/70 06/24/24 07:36 Pulse Ox 96 06/24/24 07:36 FiO2 Intake & Output 06/23/24 06/24/24 06/24/24 18:59 06:59 18:59 Intake Total 2190 Balance 2190 Weight 86.183 kg 86.183 kg Intake: Oral 0 Other: Voiding Method Toilet # Voids 2 - Labs CBC & Chem 7: 06/24/24 03:18 06/24/24 03:18 Labs: Abnormal Lab Results - Last 24 Hours (Table) 06/23/24 06/23/24 06/24/24 Range/Units 10:52 10:52 03:18 RBC 3.89 L (4.40-5.60) X 10*6/uL Hct 38.8 L (39.6-50.0) % MCV 99.7 H (80.0-97.0) FL MCH 34.2 H 34.7 H (27.0-32.0) pg Plt Count 106 L (140-440) X 10*3/uL MPV 9.2 L (9.5-12.2) fL Potassium (3.5-5.5) mmol/L Carbon Dioxide 12 L (22-30) mmol/L Glucose 125 H (74-99) mg/dL Calcium (8.7-10.3) mg/dL Total Bilirubin 2.0 H (0.2-1.3) mg/dL AST 119 H (17-59) U/L ALT 62 H (4-49) U/L Total Protein (6.2-8.2) g/dL Albumin (3.8-4.9) g/dL Globulin (1.6-3.3) g/dL 06/24/24 Range/Units 03:18 RBC (4.40-5.60) X 10*6/uL Hct (39.6-50.0) % MCV (80.0-97.0) FL MCH (27.0-32.0) pg Plt Count (140-440) X 10*3/uL MPV (9.5-12.2) fL Potassium 3.4 L (3.5-5.5) mmol/L Carbon Dioxide (22-30) mmol/L Glucose (74-99) mg/dL Calcium 7.8 L (8.7-10.3) mg/dL Total Bilirubin 1.7 H (0.2-1.3) mg/dL AST 63 H (17-59) U/L ALT (4-49) U/L Total Protein 4.9 L (6.2-8.2) g/dL Albumin 3.4 L (3.8-4.9) g/dL Globulin 1.5 L (1.6-3.3) g/dL
[2024-06-25 07:10] VITALS: BP 120/70; PULSE 71; RESP 16; TEMP 97.5
== END 2024-06-25 11:50 | disposition home or self-care (01) | DRG 775 ==
LOC: EC 10:34 → 4SSUR 13:57
PROVIDERS: ADMIT Internal Medicine; ATTEND Internal Medicine
DX: F10.229 Alcohol dependence with intoxication, unspecified (principal); F10.239 Alcohol dependence with withdrawal, unspecified; E78.5 Hyperlipidemia, unspecified; I10 Essential (primary) hypertension; F41.9 Anxiety disorder, unspecified; K70.10 Alcoholic hepatitis without ascites; F32.A Depression, unspecified; Z71.41 Alcohol abuse counseling and surveillance of alcoholic; Y90.4 Blood alcohol level of 80-99 mg/100 ml; E83.42 Hypomagnesemia; F17.290 Nicotine dependence, other tobacco product, uncomplicated; Z79.899 Other long term (current) drug therapy; Z82.49 Family history of ischemic heart disease and other diseases of the circulatory system; Z88.0 Allergy status to penicillin; Z88.6 Allergy status to analgesic agent
CPT/HCPCS: 36415; 80053; 80320; 83735; 85025; 93005; 96361; 96372; 96374; 96375; 96376; 99285

== ENCOUNTER 2024-08-17 19:49 | Emergency (ER) | payer OTHER ==
--- NOTE | 2024-08-17 20:35 | ED ---
General Adult HPI - General Chief complaint: Chest Pain Stated complaint: chest pain, sob Time Seen by Provider: 08/17/24 20:17 Source: patient, RN notes reviewed Mode of arrival: ambulatory Limitations: no limitations - History of Present Illness Initial comments: 54-year-old male with a history of hyperlipidemia and alcohol abuse presenting to emergency department for complaints of chest pain, nausea, vomiting, diaphoresis, epigastric abdominal pain that started at 6 AM this morning. Patient states that when he woke up he felt nauseated and has had multiple episodes of nonbloody nonbilious emesis throughout the day. States that he fe els chilled with no reported fevers. Endorses mild difficulty in breathing that has no precipitating modifying factors. Of note, patient states that he consumes about a pint of vodka daily with his last drink being yesterday evening. He states that he feels that he may be experiencing above-stated symptoms due to alcohol withdrawal. Denies history of DVT or PE. Denies recent travel, surgeries. - Related Data Home Medications Medication Instructions Recorded Confirmed hydrOXYzine HCL [Atarax] 25 mg PO BID PRN 11/20/23 06/23/24 Atorvastatin [Lipitor] 10 mg PO DAILY 05/23/24 06/23/24 Naltrexone Microspheres [Vivitrol] 380 mg IM Q28D 05/23/24 06/23/24 Ergocalciferol (Vitamin D2) 1,250 mcg PO MO 06/23/24 06/23/24 [Drisdol (50,000 Iu)] FLUoxetine HCL [PROzac] 40 mg PO DAILY 06/23/24 06/23/24 Previous Rx's Medication Instructions Recorded Acetaminophen Tab [Tylenol] 650 mg PO Q6HR PRN tab 06/25/24 Famotidine [Pepcid] 20 mg PO BID 15 Days #30 tab 06/25/24 Multivitamins, Thera [Multivitamin 1 each PO DAILY #30 tab 06/25/24 (formulary)] Ondansetron Odt [Zofran Odt] 4 mg PO Q8HR PRN #10 tab 06/25/24 Thiamine [Vitamin B-1] 100 mg PO DAILY #30 tab 06/25/24 chlordiazePOXIDE HCl [Librium] 25 mg PO TID #6 cap 06/25/24 Ondansetron Odt [Zofran Odt] 4 mg PO Q8HR PRN #10 tab 08/17/24 chlordiazePOXIDE HCl [Librium] 25 mg PO QID #20 capsule 08/17/24 Allergies Allergy/AdvReac Type Severity Reaction Status Date / Time bupropion HCl Allergy Rash/Hives Verified 08/17/24 20:11 [From Wellbutrin] Penicillins Allergy Unknown Verified 08/17/24 20:11 Childhood Review of Systems ROS Statement: Those systems with pertinent positive or pertinent negative responses have been documented in the HPI. ROS Other: All systems not noted in ROS Statement are negative. Past Medical History Past Medical History: Hyperlipidemia Additional Past Medical History / Comment(s): HAD SEIZURES WHEN BABY STATED HE TOOK MEDS TILL ABOUT AGE 6-no seizures since History of Any Multi-Drug Resistant Organisms: None Reported Past Surgical History: Hernia Repair Additional Past Surgical History / Comment(s): RT INGUINAL HERNIA REPAIR skin ca removed lft shoulder Past Anesthesia/Blood Transfusion Reactions: No Reported Reaction Additional Past Anesthesia/Blood Transfusion Reaction / Comment(s): CLAUSTERPHOBIA Past Psychological History: Anxiety, Depression Smoking Status: Current every day smoker, Vaper Past Alcohol Use History: Daily Past Drug Use History: None Reported - Past Family History Mother Family Medical History: Hypertension Father Family Medical History: No Reported History General Exam Limitations: no limitations General appearance: alert, in no apparent distress Eye exam: Present: normal appearance, PERRL, EOMI. Absent: scleral icterus, conjunctival injection, periorbital swelling Neck exam: Present: normal inspection. Absent: tenderness, meningismus, lymphadenopathy Respiratory exam: Present: normal lung sounds bilaterally. Absent: respiratory distress, wheezes, rales, rhonchi, stridor Cardiovascular Exam: Present: normal rhythm, tachycardia, normal heart sounds. Absent: regular rate, systolic murmur, diastolic murmur, rubs, gallop, clicks GI/Abdominal exam: Present: soft, tenderness (RUQ), normal bowel sounds. Absent: distended, guarding, rebound, rigid Extremities exam: Present: normal inspection, full ROM, normal capillary refill. Absent: tenderness, pedal edema, joint swelling, calf tenderness Back exam: Present: normal inspection Course Vital Signs 08/17/24 08/17/24 08/17/24 20:07 21:49 22:33 Temperature 98.3 F 98.4 F Pulse Rate 121 H 110 H 104 H Respiratory 20 18 18 Rate Blood Pressure 140/91 154/120 130/75 O2 Sat by Pulse 97 99 99 Oximetry Medical Decision Making - Medical Decision Making Was pt. sent in by a medical professional or institution (, PA, MEAT CUTTING BLOCK REPAIRER, urgent care, hospital, or longterm...) When possible be specific @ -No Did you speak to anyone other than the patient for history (EMS, parent, family, police, friend...)? What history was obtained from this source @ -No Did you review nursing and triage notes (agree or disagree)? Why? @ -I reviewed and agree with nursing and triage notes Were old charts reviewed (outside hosp., previous admission, EMS record, old EKG , old radiological studies, urgent care reports/EKG's, longterm records)? Report findings @ -No old charts were reviewed Differential Diagnosis (chest pain, altered mental status, abdominal pain women, abdominal pain men, vaginal bleeding, weakness, fever, dyspnea, syncope, headache, dizziness, GI bleed, back pain, seizure, CVA, palpatations, mental health, musculoskeletal)? @Differential Chest Pain: Stable Angina, Unstable Angina, STEMI, NSTEMI Aortic Dissection, Pneumothorax, Musculoskeletal, Esophageal Spasm GERD, Cholecystitis, Pancreatitis, Zoster, this is not meant to be an all-inclusive list. EKG interpreted by me (3pts min.). @ -EKG completed at 2018 sinus tachycardia with ventricular rate of 101, [place] interval 150, QRS 95, QT 340, QTc 398. Repeat EKG completed at 2040 sinus tachycardia with a ventricular rate of 106, [place] interval 148, QRS 97, QT 340, QTc 402. X-rays interpreted by me (1pt min.). @ -chest xray no acute cardiopulmonary process CT interpreted by me (1pt min.). @ -None done U/S interpreted by me (1pt. min.). @ -Ultrasound of the gallbladder reveals hepatomegaly with mild fatty infiltration, no evidence of common bile duct dilation, gallstones or gallbladder wall thickening What testing was considered but not performed or refused? (CT, X-rays, U/S, labs)? Why? @ -None What meds were considered but not given or refused? Why? @ -None Did you discuss the management of the patient with other professionals (professionals i.e. , PA, MEAT CUTTING BLOCK REPAIRER, lab, RT, psych nurse, social service manager, permastone installer, teacher, correctional security officer, case folder)? Give summary @ -No Was smoking cessation discussed for >3mins.? @ -No Was critical care preformed (if so, how long)? @ -No Were there social determinants of health that impacted care today? How? (Homelessness, low income, unemployed, alcoholism, drug addiction, transportation, low edu. Level, literacy, decrease access to med. care, assisted, rehab)? @ -No Was there de-escalation of care discussed even if they declined (Discuss DNR or withdrawal of care, Hospice)? DNR status @ -No What co-morbidities impacted this encounter? (DM, HTN, Smoking, COPD, CAD, Cancer, CVA, ARF, Chemo, Hep., AIDS, mental health diagnosis, sleep apnea, morbid obesity)? @ -None Was patient admitted / discharged? Hospital course, mention meds given and route, prescriptions, significant lab abnormalities, going to OR and other per tinent info. @ -Discharge. 54-year-old male presenting with chest pain, diaphoresis, nausea vomiting. Patient is tachycardic on arrival with a heart rate of 121. EKG is in sinus rhythm. With concern for alcohol withdrawal patient is provided with Ativan in addition to IV fluids and will undergo cardiac evaluation as well. Patient's white count is elevated at 13 with left shift neutrophils 10 likely reactive secondary to emesis. Patient is acidotic with a CO2 of 11, anion gap of 22 likely secondary to dehydration. Hyponatremia of 131. Mildly elevated bilirubin of 3.1. Urinalysis no signs of infection, 4+ ketones consistent with dehydration. Patient serum alcohol is less than 10. Chest x-ray is unremarkable. Ultrasound of the gallbladder reveals no acute process, hepatic steatosis. Patient CIWA scale is 4. On reevaluation after medications patient states that he is feeling well. Patient is stable for discharge on Librium to combat symptoms of alcohol withdrawal. Patient has a low heart score therefore is minimal clinical risk for adverse cardiac event to occur in the 6 weeks therefore is discharged in stable condition with appropriate follow-up with primary care provider. Return parameters discussed. Case discussed with my attending Dr. Corrales Undiagnosed new problem with uncertain prognosis? @ -No Drug Therapy requiring intensive monitoring for toxicity (Heparin, Nitro, Insulin, Cardizem)? @ -No Were any procedures done? @ -No Diagnosis/symptom? @ -Alcohol abuse, alcohol withdrawal, Acute, or Chronic, or Acute on Chronic? @ -Acute Uncomplicated (without systemic symptoms) or Complicated (systemic symptoms)? @ -Complicated Side effects of treatment? @ -No Exacerbation, Progression, or Severe Exacerbation? @ -No Poses a threat to life or bodily function? How? (Chest pain, USA, MA, pneumonia, PE, COPD, DKA, ARF, appy, cholecystitis, CVA, Diverticulitis, Homicidal, Suicidal, threat to staff... and all critical care pts) @ -No - Lab Data Result diagrams: 08/17/24 20:35 08/17/24 20:35 Lab Results 08/17/24 08/17/24 08/17/24 Range/Units 20:35 20:35 20:35 WBC 13.32 H (4.50-10.00) 10*3/uL RBC 4.92 (4.40-5.60) 10*6/uL Hgb 16.1 (13.0-17.0) g/dL Hct 45.5 (39.6-50.0) % MCV 92.5 (80.0-97.0) fL MCH 32.7 H (27.0-32.0) pg MCHC 35.4 (32.0-37.0) g/dL Plt Count 221 (140-440) 10*3/uL MPV 9.2 L (9.5-12.2) fL Immature Gran % (Auto) 0.3 % Neutrophils % 79.8 % Lymphocytes % 10.8 % Monocytes % 8.5 % Eosinophils % 0.2 % Basophils % 0.4 % Immature Gran # 0.04 (0.00-0.04) 10*3/uL Neutrophils # 10.64 H (1.80-7.70) 10*3/uL Lymphocytes # 1.44 (0.90-5.00) 10*3/uL Monocytes # 1.13 H (0.20-1.00) 10*3/uL Eosinophils # 0.02 L (0.04-0.35) 10*3/uL Basophils # 0.05 (0.00-0.10) 10*3/uL PT 10.9 (10.0-12.5) sec INR 1.0 (<1.2) APTT 22.3 (22.0-30.0) sec Sodium 131 L (137-145) mmol/L Potassium 4.5 (3.5-5.1) mmol/L Chloride 98 (98-107) mmol/L Carbon Dioxide 11 L (22-30) mmol/L Anion Gap 22 mmol/L BUN 11 (9-20) mg/dL Creatinine 0.92 (0.66-1.25) mg/dL Est GFR (CKD-EPI)AfAm >90 (>60 ml/min/1.73 sqM) Est GFR (CKD-EPI)NonAf >90 (>60 ml/min/1.73 sqM) Glucose 183 H (74-99) mg/dL Calcium 9.3 (8.4-10.2) mg/dL Magnesium 1.8 (1.6-2.3) mg/dL Total Bilirubin 3.1 H (0.2-1.3) mg/dL AST 67 H (17-59) U/L ALT 52 H (4-49) U/L Alkaline Phosphatase 55 (38-126) U/L Troponin I (0.000-0.034) ng/mL Total Protein 7.3 (6.3-8.2) g/dL Albumin 5.0 (3.5-5.0) g/dL Lipase 94 (23-300) U/L Urine Color Urine Appearance (Clear) Urine pH (5.0-8.0) Ur Specific [place] (1.001-1.035) Urine Protein (Negative) Urine Glucose (UA) (Negative) Urine Ketones (Negative) Urine Blood (Negative) Urine Nitrite (Negative) Urine Bilirubin (Negative) Urine Urobilinogen (<2.0) mg/dL Ur Leukocyte Esterase (Negative) Urine WBC (0-5) /hpf Urine Bacteria (None) /hpf Hyaline Casts (0-2) /lpf Urine Mucus (None) /hpf Urine Opiates Screen (NotDetected) Ur Oxycodone Screen (NotDetected) Urine Methadone Screen (NotDetected) Ur Barbiturates Screen (NotDetected) U Tricyclic Antidepress (NotDetected) Ur Phencyclidine Scrn (NotDetected) Ur Amphetamines Screen (NotDetected) U Methamphetamines Scrn (NotDetected) U Benzodiazepines Scrn (NotDetected) Urine Cocaine Screen (NotDetected) U Marijuana (THC) Screen (NotDetected) Serum Alcohol <10 mg/dL 08/17/24 08/17/24 08/17/24 Range/Units 20:35 21:09 21:09 WBC (4.50-10.00) 10*3/uL RBC (4.40-5.60) 10*6/uL Hgb (13.0-17.0) g/dL Hct (39.6-50.0) % MCV (80.0-97.0) fL MCH (27.0-32.0) pg MCHC (32.0-37.0) g/dL Plt Count (140-440) 10*3/uL MPV (9.5-12.2) fL Immature Gran % (Auto) % Neutrophils % % Lymphocytes % % Monocytes % % Eosinophils % % Basophils % % Immature Gran # (0.00-0.04) 10*3/uL Neutrophils # (1.80-7.70) 10*3/uL Lymphocytes # (0.90-5.00) 10*3/uL Monocytes # (0.20-1.00) 10*3/uL Eosinophils # (0.04-0.35) 10*3/uL Basophils # (0.00-0.10) 10*3/uL PT (10.0-12.5) sec INR (<1.2) APTT (22.0-30.0) sec Sodium (137-145) mmol/L Potassium (3.5-5.1) mmol/L Chloride (98-107) mmol/L Carbon Dioxide (22-30) mmol/L Anion Gap mmol/L BUN (9-20) mg/dL Creatinine (0.66-1.25) mg/dL Est GFR (CKD-EPI)AfAm (>60 ml/min/1.73 sqM) Est GFR (CKD-EPI)NonAf (>60 ml/min/1.73 sqM) Glucose (74-99) mg/dL Calcium (8.4-10.2) mg/dL Magnesium (1.6-2.3) mg/dL Total Bilirubin (0.2-1.3) mg/dL AST (17-59) U/L ALT (4-49) U/L Alkaline Phosphatase (38-126) U/L Troponin I <0.012 (0.000-0.034) ng/mL Total Protein (6.3-8.2) g/dL Albumin (3.5-5.0) g/dL Lipase (23-300) U/L Urine Color Yellow Urine Appearance Clear (Clear) Urine pH 6.0 (5.0-8.0) Ur Specific [place] 1.030 (1.001-1.035) Urine Protein 1+ H (Negative) Urine Glucose (UA) Trace H (Negative) Urine Ketones 4+ H (Negative) Urine Blood Moderate H (Negative) Urine Nitrite Negative (Negative) Urine Bilirubin 2+ H (Negative) Urine Urobilinogen 6.0 (<2.0) mg/dL Ur Leukocyte Esterase Negative (Negative) Urine WBC 1 (0-5) /hpf Urine Bacteria Rare H (None) /hpf Hyaline Casts 4 H (0-2) /lpf Urine Mucus Few H (None) /hpf Urine Opiates Screen Not Detected (NotDetected) Ur Oxycodone Screen Not Detected (NotDetected) Urine Methadone Screen Not Detected (NotDetected) Ur Barbiturates Screen Not Detected (NotDetected) U Tricyclic Antidepress Not Detected (NotDetected) Ur Phencyclidine Scrn Not Detected (NotDetected) Ur Amphetamines Screen Not Detected (NotDetected) U Methamphetamines Scrn Not Detected (NotDetected) U Benzodiazepines Scrn Detected H (NotDetected) Urine Cocaine Screen Not Detected (NotDetected) U Marijuana (THC) Screen Not Detected (NotDetected) Serum Alcohol mg/dL Disposition Clinical Impression: Alcohol abuse with withdrawal, Dehydration Disposition: HOME SELF-CARE Condition: Stable Instructions (If sedation given, give patient instructions): Alcohol Withdrawal (DC) Additional Instructions: Please return to the Emergency Department if symptoms worsen or any other concerns. Prescriptions: chlordiazePOXIDE HCl [Librium] 25 mg PO QID #20 capsule Ondansetron Odt [Zofran Odt] 4 mg PO Q8HR PRN #10 tab PRN Reason: Nausea Is patient prescribed a controlled substance at d/c from ED?: Yes When asked, does pt state using other controlled substances?: No If prescribed controlled substance>3 days was MAPS reviewed?: Prescribed <3 Days If Rx opioid, was Start Talking consent form obtained?: Yes Referrals: Guillermina Perla MD [Primary Care Provider] - 1-2 days Time of Disposition: 22:59
[2024-08-17] MEDS: LORazepam 1 MG/0.5 ML VIAL IV STA (20:44)
[2024-08-17] MEDS: ONDANSETRON 4 MG/2 ML VIAL IVP STA (20:44)
[2024-08-17 20:49] LABS: Basophils # (A) 0.05 10*3/uL (0.00-0.10); Basophils % (A) 0.4 %; Eosinophils # (A) 0.02 10*3/uL (0.04-0.35); Eosinophils % (A) 0.2 %; HCT 45.5 % (39.6-50.0); HGB 16.1 g/dL (13.0-17.0); Lymphocytes # (A) 1.44 10*3/uL (0.90-5.00); Lymphocytes % (A) 10.8 %; MCH 32.7 pg (27.0-32.0); MCHC 35.4 g/dL (32.0-37.0); MCV 92.5 fL (80.0-97.0); Mean Platelet Volume 9.2 fL (9.5-12.2); Monocytes # (A) 1.13 10*3/uL (0.20-1.00); Monocytes % (A) 8.5 %; Neutrophils # (A) 10.64 10*3/uL (1.80-7.70); Neutrophils % (A) 79.8 %; Platelet Count 221 10*3/uL (140-440); RBC 4.92 10*6/uL (4.40-5.60); RDW 12.6 % (11.5-14.5); WBC 13.32 10*3/uL (4.50-10.00)
[2024-08-17 20:58] LABS: Partial Thromboplastin Time 22.3 sec (22.0-30.0); Prothrombin Time 10.9 sec (10.0-12.5)
[2024-08-17 21:13] LABS: ALT 52 U/L (4-49); African American GFR (CKD) >90 (>60 ml/min/1.73 sqM); Alcohol <10 mg/dL; Anion Gap 22 mmol/L; Blood Urea Nitrogen 11 mg/dL (9-20); Calcium 9.3 mg/dL (8.4-10.2); Carbon Dioxide 11 mmol/L (22-30); Chloride 98 mmol/L (98-107); Glucose 183 mg/dL (74-99); Lipase 94 U/L (23-300); Non-African American GFR(CKD) >90 (>60 ml/min/1.73 sqM); Sodium 131 mmol/L (137-145); Total Bilirubin 3.1 mg/dL (0.2-1.3); Total Protein 7.3 g/dL (6.3-8.2)
[2024-08-17 21:37] LABS: Appearance,Urine Clear (Clear); Bacteria,Urine Rare /hpf; Bilirubin,Urine 2+ (Negative); Blood,Urine Moderate (Negative); Color,Urine Yellow; Glucose,Urine (UA) Trace (Negative); Hyaline Casts,Urine 4 /lpf (0-2); Ketones,Urine 4+ (Negative); Leukocyte Esterase,Urine Negative (Negative); Mucus,Urine Few /hpf; Nitrite,Urine Negative (Negative); Protein,Urine 1+ (Negative); WBC,Urine 1 /hpf (0-5)
[2024-08-17 21:40] LABS: Amphetamine Screen,Urine Not Detected (NotDetected); Barbiturate Screen,Urine Not Detected (NotDetected); Benzodiazepines Screen,Urine Detected (NotDetected); Cocaine Screen,Urine Not Detected (NotDetected); Methadone Screen, Urine Not Detected (NotDetected); Opiate Screen,Urine Not Detected (NotDetected); Oxycodone Screen, Urine Not Detected (NotDetected); Phencyclidine Screen,Urine Not Detected (NotDetected); Tricyclic Antidepressant,Urine Not Detected (NotDetected); Urn Cannabinoid Scrn Not Detected (NotDetected)
[2024-08-17 21:49] VITALS: RESP 18
[2024-08-17] MEDS: MORPHINE SULFATE 4 MG/ML SYRINGE IVP STA (21:52)
[2024-08-17] MEDS: METOCLOPRAMIDE 5 MG/ML 2 ML VIAL IVP STA (21:53)
--- NOTE | 2024-08-17 22:00 | US ---
EXAMINATION TYPE: US gallbladder DATE OF EXAM: 08/17/2024 COMPARISON: NONE CLINICAL INDICATION: Male, 54 years old with history of RUQ ab pain, N/V, diaphoresis; TECHNIQUE: Grayscale and color Doppler imaging of the right upper quadrant was performed. FINDINGS: EXAM MEASUREMENTS: Liver Length: 18.6 cm Gallbladder Wall: 0.1 cm CBD: 0.4 cm Right Kidney: 9.7 x 4.3 x 4.2 cm CUSTOMER SERVICE TRAINER NOTES:Suboptimal due to patient having hiccups during the entirety of exam Pancreas: Head and tail obscured by overlying bowel gas Liver: Enlarged in size. Echogenic. Heterogenous Gallbladder: No stones or wall thickening seen at time of scan Evidence for sonographic Daniel's sign: neg CBD: wnl Right Kidney: No hydronephrosis or masses seen IMPRESSION: 1. Hepatomegaly with mild fatty infiltration. [facility], , 08/17/2024 9:58 PM
[2024-08-17 22:26] LABS: AST 67 U/L (17-59); Magnesium 1.8 mg/dL (1.6-2.3); Potassium 4.5 mmol/L (3.5-5.1)
[2024-08-17 22:27] LABS: Alkaline Phosphatase 55 U/L (38-126)
[2024-08-17 22:34] VITALS: BP 130/75; PULSE 104; TEMP 98.4
--- NOTE | 2024-08-17 22:41 | XR ---
EXAMINATION TYPE: XR chest 2V DATE OF EXAM: 08/17/2024 8:54 PM COMPARISON: 05/23/2024 CLINICAL INDICATION: Male, 54 years old with history of Chest Pain, TECHNIQUE: XR chest 2V view(s) obtained. FINDINGS: The heart size is normal. The pulmonary vasculature is normal. The lungs are clear. IMPRESSION: 1. No acute pulmonary process. [facility], , 08/17/2024 10:39 PM
[2024-08-17] MEDS: ONDANSETRON 4 MG ODT STARTER PACK 2 TAB BTL PO STA (23:06)
== END 2024-08-17 23:09 | disposition home or self-care (01) ==
LOC: EC 19:49
DX: F10.139 Alcohol abuse with withdrawal, unspecified (principal); E86.0 Dehydration; E78.5 Hyperlipidemia, unspecified; F17.290 Nicotine dependence, other tobacco product, uncomplicated; Z88.0 Allergy status to penicillin; Z88.8 Allergy status to other drugs, medicaments and biological substances; Y90.0 Blood alcohol level of less than 20 mg/100 ml
CPT/HCPCS: 99285; 96374; 96375; 36415; 93005; 80053; 83690; 83735; 84484; 85025; 85610; 85730; 81001; 80306; 71046; 76705; G0480; J2060; J2270; J2765; J2405; S0119; 80320

== ENCOUNTER 2024-09-18 13:13 | Inpatient (IN) | payer OTHER ==
[2024-09-18 14:01] LABS: Basophils # (A) 0.05 10*3/uL (0.00-0.10); Basophils % (A) 0.6 %; Eosinophils # (A) 0.00 10*3/uL (0.04-0.35); Eosinophils % (A) 0.0 %; HCT 44.7 % (39.6-50.0); HGB 15.6 g/dL (13.0-17.0); Lymphocytes # (A) 0.63 10*3/uL (0.90-5.00); Lymphocytes % (A) 8.0 %; MCH 33.6 pg (27.0-32.0); MCHC 34.9 g/dL (32.0-37.0); MCV 96.3 fL (80.0-97.0); Monocytes # (A) 0.56 10*3/uL (0.20-1.00); Monocytes % (A) 7.1 %; Neutrophils # (A) 6.58 10*3/uL (1.80-7.70); Neutrophils % (A) 83.8 %; Platelet Count 127 10*3/uL (140-440); RBC 4.64 10*6/uL (4.40-5.60); RDW 15.8 % (11.5-14.5); WBC 7.86 10*3/uL (4.50-10.00)
--- NOTE | 2024-09-18 14:11 | XR ---
EXAMINATION TYPE: XR chest 2V DATE OF EXAM: 09/18/2024 2:06 PM COMPARISON: Chest radiographs from 08/17/2024 TECHNIQUE: XR chest 2V Frontal and lateral views of the chest. CLINICAL INDICATION:Male, 54 years old with history of Chest Pain; FINDINGS: Lungs/Pleura: There is no evidence of pleural effusion, focal consolidation, or pneumothorax. Pulmonary vascularity: Unremarkable. Heart/mediastinum: Cardiomediastinal silhouette is unremarkable. Atherosclerotic calcifications are seen in the aorta. Musculoskeletal: No acute osseous pathology. IMPRESSION: No acute cardiopulmonary disease/process. [facility], , 09/18/2024 2:09 PM
[2024-09-18 14:12] LABS: INR 1.0 (<1.2); Partial Thromboplastin Time 22.4 sec (22.0-30.0); Prothrombin Time 10.9 sec (10.0-12.5)
[2024-09-18 14:16] LABS: ALT 84 U/L (4-49); AST 140 U/L (17-59); African American GFR (CKD) >90 (>60 ml/min/1.73 sqM); Albumin 5.6 g/dL (3.5-5.0); Alkaline Phosphatase 123 U/L (38-126); Anion Gap 28 mmol/L; Blood Urea Nitrogen 9 mg/dL (9-20); Calcium 9.6 mg/dL (8.4-10.2); Carbon Dioxide 14 mmol/L (22-30); Chloride 98 mmol/L (98-107); Glucose 132 mg/dL (74-99); Magnesium 2.0 mg/dL (1.6-2.3); Non-African American GFR(CKD) >90 (>60 ml/min/1.73 sqM); Potassium 5.0 mmol/L (3.5-5.1); Sodium 140 mmol/L (137-145); Total Protein 8.5 g/dL (6.3-8.2)
[2024-09-18] MEDS ORDERED: LORazepam 0.5 MG TAB PO PRN (14:56)
--- NOTE | 2024-09-18 15:05 | ED ---
Chest Pain HPI - General Chief Complaint: Chest Pain Stated Complaint: Chest pain,SOB Time Seen by Provider: 09/18/24 14:43 Source: patient, RN notes reviewed Mode of arrival: ambulatory Limitations: no limitations - History of Present Illness Initial Comments: 54-year-old male presents emergency department complaining of chest pain, nausea vomiting alcohol withdrawal. Patient states that the pain was keeping down last few days complains of centralized chest pain. Patient does admit that he drinks 1 pint a day states that he does feel like he is withdrawing he is feels very shaky, nauseated. Patient states he has no prior cardiac history does feel slightly short of breath denies leg pain leg swelling no history of CHF denies fever or chills. - Related Data Home Medications Medication Instructions Recorded Confirmed hydrOXYzine HCL [Atarax] 25 mg PO BID PRN 11/20/23 06/23/24 Atorvastatin [Lipitor] 10 mg PO DAILY 05/23/24 06/23/24 Naltrexone Microspheres [Vivitrol] 380 mg IM Q28D 05/23/24 06/23/24 Ergocalciferol (Vitamin D2) 1,250 mcg PO MO 06/23/24 06/23/24 [Drisdol (50,000 Iu)] FLUoxetine HCL [PROzac] 40 mg PO DAILY 06/23/24 06/23/24 Previous Rx's Medication Instructions Recorded Acetaminophen Tab [Tylenol] 650 mg PO Q6HR PRN tab 06/25/24 Famotidine [Pepcid] 20 mg PO BID 15 Days #30 tab 06/25/24 Multivitamins, Thera [Multivitamin 1 each PO DAILY #30 tab 06/25/24 (formulary)] Ondansetron Odt [Zofran Odt] 4 mg PO Q8HR PRN #10 tab 06/25/24 Thiamine [Vitamin B-1] 100 mg PO DAILY #30 tab 06/25/24 chlordiazePOXIDE HCl [Librium] 25 mg PO TID #6 cap 06/25/24 Ondansetron Odt [Zofran Odt] 4 mg PO Q8HR PRN #10 tab 08/17/24 chlordiazePOXIDE HCl [Librium] 25 mg PO QID #20 capsule 08/17/24 Allergies Allergy/AdvReac Type Severity Reaction Status Date / Time bupropion HCl Allergy Rash/Hives Verified 09/18/24 13:35 [From Wellbutrin] Penicillins Allergy Unknown Verified 09/18/24 13:35 Childhood Review of Systems ROS Statement: Those systems with pertinent positive or pertinent negative responses have been documented in the HPI. ROS Other: All systems not noted in ROS Statement are negative. EKG Findings - EKG Comments: EKG Findings:: Performed at 13: 39 sinus tachycardia rate of 104 IA 151 QRS 98 QT/QTc 349/410 - EKG Results: EKG: interpreted by NAMITA Past Medical History Past Medical History: Hyperlipidemia Additional Past Medical History / Comment(s): HAD SEIZURES WHEN BABY STATED HE TOOK MEDS TILL ABOUT AGE 6-no seizures since History of Any Multi-Drug Resistant Organisms: None Reported Past Surgical History: Hernia Repair Additional Past Surgical History / Comment(s): RT INGUINAL HERNIA REPAIR skin ca removed lft shoulder Past Anesthesia/Blood Transfusion Reactions: No Reported Reaction Additional Past Anesthesia/Blood Transfusion Reaction / Comment(s): CLAUSTERPHOBIA Past Psychological History: Anxiety, Depression Smoking Status: Current every day smoker, Vaper Past Alcohol Use History: Daily Past Drug Use History: None Reported - Past Family History Mother Family Medical History: Hypertension Father Family Medical History: No Reported History General Exam Limitations: no limitations General appearance: alert, in no apparent distress Head exam: Present: atraumatic, normocephalic, normal inspection Eye exam: Present: normal appearance, PERRL, EOMI. Absent: scleral icterus, conjunctival injection, periorbital swelling ENT exam: Present: normal exam, normal oropharynx, mucous membranes moist Neck exam: Present: normal inspection, full ROM. Absent: tenderness, meningismus, lymphadenopathy Respiratory exam: Present: normal lung sounds bilaterally. Absent: respiratory distress, wheezes, rales, rhonchi, stridor Cardiovascular Exam: Present: normal rhythm, tachycardia, normal heart sounds. Absent: systolic murmur, diastolic murmur, rubs, gallop, clicks GI/Abdominal exam: Present: soft, normal bowel sounds. Absent: distended, tenderness, guarding, rebound, rigid Course Vital Signs 09/18/24 09/18/24 09/18/24 13:32 14:48 14:54 Temperature 98 F Pulse Rate 113 H 99 Pulse Rate [ 113 H [place] ] Respiratory 20 18 Rate Blood Pressure 154/92 163/96 O2 Sat by Pulse 97 99 Oximetry Chest Pain MDM - MDM Was pt. sent in by a medical professional or institution (, [facility], [facility], urgent care, hospital, or fpc...) When possible be specific @ -No Did you speak to anyone other than the patient for history (EMS, parent, family, police, friend...)? What history was obtained from this source @ -No Did you review nursing and triage notes (agree or disagree)? Why? @ -I reviewed and agree with nursing and triage notes Were old charts reviewed (outside hosp., previous admission, EMS record, old EKG, old radiological studies, urgent care reports/EKG's, fpc records)? Report findings @ -No old charts were reviewed Differential Diagnosis (chest pain, altered mental status, abdominal pain women, abdominal pain men, vaginal bleeding, weakness, fever, dyspnea, syncope, headache, dizziness, GI bleed, back pain, seizure, CVA, palpatations, mental health, musculoskeletal)? @ -Differential Chest Pain: Stable Angina, Unstable Angina, STEMI, NSTEMI Aortic Dissection, Pneumothorax, Musculoskeletal, Esophageal Spasm GERD, Cholecystitis, Pancreatitis, Zoster, this is not meant to be an all-inclusive list. EKG interpreted by me (3pts min.). @ -As above X-rays interpreted by me (1pt min.). @ -[Chest x-ray shows no acute cardiopulmonary process. CT interpreted by me (1pt min.). @ -None U/S interpreted by me (1pt. min.). @ -None done What testing was considered but not performed or refused? (CT, X-rays, U/S, labs)? Why? @ -None What meds were considered but not given or refused? Why? @ -None Did you discuss the management of the patient with other professionals (professionals i.e. , [facility], [facility], lab, RT, psych nurse, social services counselor, retort operator, teacher, officer captain, case operator)? Give summary @ - Sheet for admission Was smoking cessation discussed for >3mins.? @ -No Was critical care preformed (if so, how long)? @ -No Were there social determinants of health that impacted care today? How? (Homelessness, low income, unemployed, alcoholism, drug addiction, transportation, low edu. Level, literacy, decrease access to med. care, care home, rehab)? @ -No Was there de-escalation of care discussed even if they declined (Discuss DNR or withdrawal of care, Hospice)? DNR status @ -No What co-morbidities impacted this encounter? (DM, HTN, Smoking, COPD, CAD, Cancer, CVA, ARF, Chemo, Hep., AIDS, mental health diagnosis, sleep apnea, morbid obesity)? @ -Alcohol abuse Was patient admitted / discharged? Hospital course, mention meds given and route, prescriptions, significant lab abnormalities, going to OR and other pertinent info. @ -Admitted patient has acute alcohol withdrawal, complaint of chest pain for stroke was negative. Patient has been seen here recently for chest pain and discharge will be admitted for cardiac rule out. Patient placed on alcohol withdrawal protocol Undiagnosed new problem with uncertain prognosis? @ -No Drug Therapy requiring intensive monitoring for toxicity (Heparin, Nitro, Insulin, Cardizem)? @ -No Were any procedures done? @ -No Diagnosis/symptom? @ -Chest pain, alcohol withdrawal Acute, or Chronic, or Acute on Chronic? @ -Acute Uncomplicated (without systemic symptoms) or Complicated (systemic symptoms)? @ -Complicated Side effects of treatment? @ -No Exacerbation, Progression, or Severe Exacerbation? @ -No Poses a threat to life or bodily function? How? (Chest pain, USA, ID, pneumonia, PE, COPD, DKA, ARF, appy, cholecystitis, CVA, Diverticulitis, Homicidal, Suicidal, threat to staff... and all critical care pts) @ -Yes chest pain risk of cardiac function Disposition Clinical Impression: Chest pain, EtOH dependence, Alcohol withdrawal syndrome, Nausea & vomiting Disposition: ADMITTED IP TO THIS HOSP Condition: Fair Referrals: Guillermina Perla MD [Primary Care Provider] - 1-2 days Time of Disposition: 15:03
[2024-09-18] MEDS: LACTATED RINGERS 1,000 ML IV ONE (15:09)
[2024-09-18] MEDS: ONDANSETRON 4 MG/2 ML VIAL IVP STA (15:09)
[2024-09-18] MEDS: LORazepam 1 MG/0.5 ML VIAL IV STA (15:09)
[2024-09-18] MEDS: LORazepam 1 MG TAB PO PRN (16:42)
[2024-09-18] MEDS ORDERED: NALOXONE 0.4 MG/ML 1 ML VIAL IV PRN (16:52)
[2024-09-18] MEDS: NICOTINE 21MG/24HR PATCH TRANSDERM STA (16:53)
[2024-09-18] MEDS: ONDANSETRON 4 MG/2 ML VIAL IVP PRN (18:44)
[2024-09-18] MEDS ORDERED: LORazepam 1 MG/0.5 ML VIAL IV PRN (18:59)
[2024-09-18] MEDS: LORazepam 1 MG/0.5 ML VIAL IV PRN (19:15)
[2024-09-19] MEDS: LORazepam 1 MG/0.5 ML VIAL IV PRN (00:14)
[2024-09-19] MEDS ORDERED: ONDANSETRON 4 MG/2 ML VIAL IVP PRN (00:32)
[2024-09-19] MEDS: LORazepam 1 MG/0.5 ML VIAL IV STA (00:42)
[2024-09-19] MEDS: SODIUM CHLORIDE 0.9% 1,000 ML IV SCH (00:43)
[2024-09-19] MEDS: PROCHLORPERAZINE INJ 10 MG/2 ML VIAL IVP PRN (00:50)
[2024-09-19] MEDS: THIAMINE 100 MG TAB PO SCH (09:03)
[2024-09-19] MEDS: chlordiazePOXIDE 25 MG CAP PO SCH (09:03)
[2024-09-19] MEDS: METOPROLOL SUCCINATE (ER) 25 MG TAB.ER.24H PO SCH (09:03)
[2024-09-19] MEDS: NICOTINE 21MG/24HR PATCH TRANSDERM SCH (10:43)
--- NOTE | 2024-09-19 11:10 | P.CRDCN ---
History of Present Illness Consult date: 09/19/24 Consult reason: chest pain History of present illness: This is a 54-year-old male patient with past medical history of alcohol abuse, hyperlipidemia. We have been asked to evaluate the patient for chest pain. Patient presented to the emergency center with complaints of chest pain, nausea vomiting and alcohol withdrawal. He is history of drinking 1 pint a day of alcohol. He complains of feeling shaky. Blood pressure 139/83, heart rate 103- 113, pulse ox 96% on room air. -EKG: Sinus tachycardia with no acute ST-T wave changes. -Chest x-ray: No acute process. -Laboratory studies: Troponin negative x 3. Hemoglobin 15.6, creatinine 0.86, potassium 5.0. 0.8. Total bilirubin 3.6, AST 140, ALT 84. -Home cardiac medications: Atorvastatin 10 mg daily. -Stress echocardiogram performed 11/21/2023 revealed poor exercise tolerance. Negative stress test by EKG criteria. Negative stress echocardiogram. -Echocardiogram performed 11/21/2023 revealed normal LV function. Review Of Systems: At the time of my exam: CONSTITUTIONAL: Denies fever or chills. HEENT: Denies blurred vision, vision changes, or eye pain. Denies hemoptysis CARDIOVASCULAR: Denies chest pain. Denies orthopnea. Denies PND. Denies palpitations RESPIRATORY: Denies shortness of breath. GASTROINTESTINAL: Denies abdominal pain. Denies nausea or vomiting. HEMATOLOGIC: Denies bleeding disorders. GENITOURINARY: Denies any blood in urine. SKIN: Denies puritis. Denies rash. Physical examination: Gen: This is a 54-year-old male in no acute respiratory distress. VS: reviewed HEENT: Head is atraumatic, normocephalic. Pupils equal, round. Sclerae is anicteric. NECK: Supple. No JVD. LUNGS: Clear to auscultation. No wheezes or rhonchi. No intercostal retractions. HEART: Regular rate and rhythm. No murmur. ABDOMEN: Soft No tenderness. EXTREMITIES: No pedal edema. No calf tenderness. NEUROLOGICAL: Patient is awake, alert and oriented x3. Assessment: Alcohol withdrawal on CIWA protocol Atypical chest pain, acute coronary syndrome ruled out Hyperlipidemia Plan: Start patient on Toprol XL 25 mg daily No plan for any further cardiac workup Cardiology will sign off this case and follow on an as-needed basis. Please reconsult for any new concerns. Patient may follow-up in the office with Dr. Lyman in 2 weeks. Thank you kindly for this consultation. Nurse practitioner note has been reviewed, I agree with documented findings and plan of care. Patient was seen and examined. Past Medical History Past Medical History: Hyperlipidemia Additional Past Medical History / Comment(s): HAD SEIZURES WHEN BABY STATED HE TOOK MEDS TILL ABOUT AGE 6-no seizures since History of Any Multi-Drug Resistant Organisms: None Reported Past Surgical History: Hernia Repair Additional Past Surgical History / Comment(s): RT INGUINAL HERNIA REPAIR skin ca removed lft shoulder Past Anesthesia/Blood Transfusion Reactions: No Reported Reaction Additional Past Anesthesia/Blood Transfusion Reaction / Comment(s): CLAUSTERPHOBIA Past Psychological History: ADD/ADHD, Anxiety, Depression Additional Psychological History / Comment(s): 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 NO PETS. NO SERVICE IN PAST. 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 NO HOME CARES SERVICES, NO MEDICAL EQUIPMENT EXCEPT FOR BP MONITOR. Smoking Status: Current every day smoker, Vaper Past Alcohol Use History: Daily Additional Past Alcohol Use History / Comment(s): STARTED SMOKING AT AGE 17, SMOKES 1PPD. Past Drug Use History: None Reported - Past Family History Mother Family Medical History: Hypertension Father Family Medical History: No Reported History Medications and Allergies Home Medications Medication Instructions Recorded Confirmed Type hydrOXYzine HCL [Atarax] 25 mg PO BID PRN 11/20/23 09/18/24 History Atorvastatin [Lipitor] 10 mg PO DAILY 05/23/24 09/18/24 History Naltrexone Microspheres [Vivitrol] 380 mg IM Q28D 05/23/24 09/18/24 History Ergocalciferol (Vitamin D2) 1,250 mcg PO MO 06/23/24 09/18/24 History [Drisdol (50,000 Iu)] FLUoxetine HCL [PROzac] 40 mg PO DAILY 06/23/24 09/18/24 History Ondansetron Odt [Zofran Odt] 4 mg PO Q8HR PRN #10 tab 08/17/24 09/18/24 Rx Naltrexone HCl [Revia] 50 mg PO DAILY 09/18/24 09/18/24 History Allergies Allergy/AdvReac Type Severity Reaction Status Date / Time bupropion HCl Allergy Rash/Hives Verified 09/18/24 17:18 [From Wellbutrin] Penicillins Allergy Unknown Verified 09/18/24 17:18 Childhood Physical Exam Vitals: Vital Signs Temp Pulse Pulse Resp BP BP BP 09/19/24 07:23 98.1 F 103 H 17 139/83 09/19/24 02:00 101 H 09/19/24 01:53 99.4 F 108 H 22 117/73 09/19/24 00:01 113 H 09/18/24 23:56 98.3 F 110 H 19 194/112 09/18/24 23:26 98.6 F 112 H 18 146/88 09/18/24 18:44 100 18 163/94 09/18/24 14:54 99 18 163/96 09/18/24 14:48 113 H 09/18/24 13:32 98 F 113 H 20 154/92 Pulse Ox 09/19/24 07:23 96 09/19/24 02:00 09/19/24 01:53 97 09/19/24 00:01 09/18/24 23:56 97 09/18/24 23:26 96 09/18/24 18:44 95 09/18/24 14:54 99 09/18/24 14:48 09/18/24 13:32 97 Intake and Output 09/18/24 09/19/24 09/19/24 22:59 06:59 14:59 Other: Voiding Method Toilet # Voids 1 Weight 85.275 kg Results 09/18/24 13:48 09/18/24 13:48 Cardiac Enzymes 09/18/24 09/18/24 09/18/24 Range/Units 13:48 13:48 17:02 AST 140 H (17-59) U/L Troponin I <0.012 <0.012 (0.000-0.034) ng/mL 09/18/24 Range/Units 19:51 AST (17-59) U/L Troponin I <0.012 (0.000-0.034) ng/mL Coagulation 09/18/24 Range/Units 13:48 PT 10.9 (10.0-12.5) sec APTT 22.4 (22.0-30.0) sec CBC 09/18/24 Range/Units 13:48 WBC 7.86 (4.50-10.00) 10*3/uL RBC 4.64 (4.40-5.60) 10*6/uL Hgb 15.6 (13.0-17.0) g/dL Hct 44.7 (39.6-50.0) % Plt Count 127 L (140-440) 10*3/uL Comprehensive Metabolic Panel 09/18/24 Range/Units 13:48 Sodium 140 (137-145) mmol/L Potassium 5.0 (3.5-5.1) mmol/L Chloride 98 (98-107) mmol/L Carbon Dioxide 14 L (22-30) mmol/L BUN 9 (9-20) mg/dL Creatinine 0.86 (0.66-1.25) mg/dL Glucose 132 H (74-99) mg/dL Calcium 9.6 (8.4-10.2) mg/dL AST 140 H (17-59) U/L ALT 84 H (4-49) U/L Alkaline Phosphatase 123 (38-126) U/L Total Protein 8.5 H (6.3-8.2) g/dL Albumin 5.6 H (3.5-5.0) g/dL Current Medications Generic Name Dose Route Start Last Admin Trade Name Freq PRN Reason Stop Dose Admin Chlordiazepoxide HCl 25 mg 09/19/24 09:00 Chlordiazepoxide 25 Mg Cap PO TID WEST Sodium Chloride 1,000 mls @ 100 mls/hr 09/19/24 00:45 09/19/24 00:43 Saline 0.9% IV 100 mls/hr .Q10H WEST Administration Lorazepam 0.5 mg 09/18/24 14:56 Lorazepam 0.5 Mg Tab PO Q4HR PRN Ciwa 4 To 5 Lorazepam 1 mg 09/18/24 14:56 09/18/24 16:42 Lorazepam 1 Mg Tab PO 1 mg Q4HR PRN Administration Ciwa 6 To 7 Lorazepam 1 mg 09/18/24 18:59 Lorazepam 1 Mg/0.5 Ml Vial IV Q1HR PRN CIWA 10 to 15 Lorazepam 1 mg 09/18/24 18:59 09/19/24 01:24 Lorazepam 1 Mg/0.5 Ml Vial IV 1 mg Q2HR PRN Administration CIWA 8 or 9 Naloxone HCl 0.2 mg 09/18/24 16:52 Naloxone 0.4 Mg/Ml 1 Ml Vial IV Q2M PRN Opioid Reversal Ondansetron HCl 4 mg 09/19/24 00:32 Ondansetron 4 Mg/2 Ml Vial IVP Q6HR PRN Nausea And Vomiting Prochlorperazine Edisylate 5 mg 09/19/24 00:32 09/19/24 00:50 Prochlorperazine Inj 10 Mg/2 Ml Vial IVP 5 mg Q6HR PRN Administration Nausea And Vomiting Thiamine HCl 100 mg 09/19/24 09:00 Thiamine 100 Mg Tab PO DAILY WEST Intake and Output 09/18/24 09/19/24 09/19/24 22:59 06:59 14:59 Other: Voiding Method Toilet # Voids 1 Weight 85.275 kg 09/18/24 13:48 09/18/24 13:48
[2024-09-19] MEDS: PANTOPRAZOLE 40 MG/10 ML VIAL IVP SCH (12:00)
--- NOTE | 2024-09-19 12:00 | P.HPIM ---
History of Present Illness Patient is a pleasant 54 years old male from home who presents because feeling tightness in his chest with shortness of breath and feeling weak for the last 2 days. Has been vomiting even with water. He denies abdominal pain or diarrhea. No urinary complaint or dysuria or urgency No headache dizziness weakness or numbness He also complains from chest pain like someone sitting on his chest about 4-5/10 severity central versus chest with no obvious precipitating or relieving factor with no coughing. He denies depression or homicidal or suicidal ideation. He wants to quit alcohol. He had diarrhea for 2 days yesterday but there was no blood. He is tachycardic, afebrile. Labs reviewed showing mild transaminitis. Troponin x 3 are negative. Chest x- ray showed no acute cardiopulmonary process. EKG shows a tachycardia [address]-T changes Review of Systems R review of systems CONSTITUTIONAL: No fever, no malaise, no fatigue. HEENT: No recent visual problems or hearing problems. Denied any sore throat. CARDIOVASCULAR: No orthopnea, PND, no palpitations, no syncope. PULMONARY: No shortness of breath, no cough, no hemoptysis. GASTROINTESTINAL: No diarrhea, no nausea, no vomiting, no abdominal pain. Normoactive bowel sounds. NEUROLOGICAL: No headaches, no weakness, no numbness. HEMATOLOGICAL: Denies any bleeding or petechiae. GENITOURINARY: Denies any burning micturition, frequency, or urgency. MUSCULOSKELETAL/RHEUMATOLOGICAL: Denies any joint pain, swelling, or any muscle pain. ENDOCRINE: Denies any polyuria or polydipsia. Past Medical History Past Medical History: Hyperlipidemia Additional Past Medical History / Comment(s): HAD SEIZURES WHEN BABY STATED HE TOOK MEDS TILL ABOUT AGE 6-no seizures since History of Any Multi-Drug Resistant Organisms: None Reported Past Surgical History: Hernia Repair Additional Past Surgical History / Comment(s): RT INGUINAL HERNIA REPAIR skin ca removed lft shoulder Past Anesthesia/Blood Transfusion Reactions: No Reported Reaction Additional Past Anesthesia/Blood Transfusion Reaction / Comment(s): CLAUSTERPHOBIA Past Psychological History: ADD/ADHD, Anxiety, Depression Additional Psychological History / Comment(s): 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 NO PETS. NO SERVICE IN PAST. 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 NO HOME CARES SERVICES, NO MEDICAL EQUIPMENT EXCEPT FOR BP MONITOR. Smoking Status: Current every day smoker, Vaper Past Alcohol Use History: Daily Additional Past Alcohol Use History / Comment(s): STARTED SMOKING AT AGE 17, SMOKES 1PPD. Past Drug Use History: None Reported - Past Family History Mother Family Medical History: Hypertension Father Family Medical History: No Reported History Medications and Allergies Home Medications Medication Instructions Recorded Confirmed Type hydrOXYzine HCL [Atarax] 25 mg PO BID PRN 11/20/23 09/18/24 History Atorvastatin [Lipitor] 10 mg PO DAILY 05/23/24 09/18/24 History Naltrexone Microspheres [Vivitrol] 380 mg IM Q28D 05/23/24 09/18/24 History Ergocalciferol (Vitamin D2) 1,250 mcg PO MO 06/23/24 09/18/24 History [Drisdol (50,000 Iu)] FLUoxetine HCL [PROzac] 40 mg PO DAILY 06/23/24 09/18/24 History Ondansetron Odt [Zofran Odt] 4 mg PO Q8HR PRN #10 tab 08/17/24 09/18/24 Rx Naltrexone HCl [Revia] 50 mg PO DAILY 09/18/24 09/18/24 History Allergies Allergy/AdvReac Type Severity Reaction Status Date / Time bupropion HCl Allergy Rash/Hives Verified 09/18/24 17:18 [From Wellbutrin] Penicillins Allergy Unknown Verified 09/18/24 17:18 Childhood Physical Exam Vitals: Vital Signs Temp Pulse Pulse Resp BP BP BP 09/19/24 07:23 98.1 F 103 H 17 139/83 09/19/24 02:00 101 H 09/19/24 01:53 99.4 F 108 H 22 117/73 09/19/24 00:01 113 H 09/18/24 23:56 98.3 F 110 H 19 194/112 09/18/24 23:26 98.6 F 112 H 18 146/88 09/18/24 18:44 100 18 163/94 09/18/24 14:54 99 18 163/96 09/18/24 14:48 113 H 09/18/24 13:32 98 F 113 H 20 154/92 Pulse Ox 09/19/24 07:23 96 09/19/24 02:00 09/19/24 01:53 97 09/19/24 00:01 09/18/24 23:56 97 09/18/24 23:26 96 09/18/24 18:44 95 09/18/24 14:54 99 09/18/24 14:48 09/18/24 13:32 97 Intake and Output 09/18/24 09/19/24 09/19/24 22:59 06:59 14:59 Other: Voiding Method Toilet Toilet # Voids 1 Weight 85.275 kg GENERAL: The patient is alert and oriented x3, not in any acute distress. Well developed, well nourished. HEENT: Pupils are round and equally reacting to light. EOMI. No scleral icterus. No conjunctival pallor. Normocephalic, atraumatic. No pharyngeal erythema. No thyromegaly. CARDIOVASCULAR: S1 and S2 present. No murmurs, rubs, or gallops. PULMONARY: Chest is clear to auscultation, no wheezing , no crackles. ABDOMEN: Soft, nontender, nondistended, normoactive bowel sounds. No palpable organomegaly. MUSCULOSKELETAL: No joint swelling or deformity. EXTREMITIES: No cyanosis, clubbing, or pedal edema. NEUROLOGICAL: Gross neurological examination did not reveal any focal deficits. SKIN: No rashes. no petechiae. Results CBC & Chem 7: 09/18/24 13:48 09/18/24 13:48 Labs: Abnormal Lab Results - Last 24 Hours (Table) 09/18/24 09/18/24 Range/Units 13:48 13:48 MCH 33.6 H (27.0-32.0) pg Plt Count 127 L (140-440) 10*3/uL MPV 9.0 L (9.5-12.2) fL Lymphocytes # 0.63 L (0.90-5.00) 10*3/uL Eosinophils # 0.00 L (0.04-0.35) 10*3/uL Carbon Dioxide 14 L (22-30) mmol/L Glucose 132 H (74-99) mg/dL Total Bilirubin 3.6 H (0.2-1.3) mg/dL AST 140 H (17-59) U/L ALT 84 H (4-49) U/L Total Protein 8.5 H (6.3-8.2) g/dL Albumin 5.6 H (3.5-5.0) g/dL Assessment and Plan Assessment: Chest pain musculoskeletal, rule out cardiac causes. Cardiology signed off the case and cardiac causes ruled out Alcohol use disorder intoxication at risk of alcohol withdrawal Possible alcoholic gastritis/esophagitis Mild alcoholic transaminitis Hyperlipidemia Anxiety and depression Nicotine dependence he was counseled to quit he agrees but he declines nicotine patch Plan: Cardiology added metoprolol and sign of the case Continue with CIWA protocol and thiamine Add Protonix twice daily Continue Zofran. May add Reglan as needed if needed. If no improvement may consider further imaging or workup Continue close monitoring Continue with Librium Labs and medication were reviewed.. Continue same treatment. Continue with symptomatic treatment. Resume home medication. Monitor labs and vitals. DVT and GI prophylaxis. Further recommendations as per clinical course of the patient DVT prophylaxis: Subcutaneous heparin GI Prophylaxis: P Protonix Prognosis is guarded
[2024-09-19] MEDS: HEPARIN SODIUM,PORCINE 5,000 UNIT/ML 1 ML VIAL SQ SCH (12:01)
[2024-09-20 08:48] LABS: Basophils # (A) 0.03 X 10*3/uL (0.00-0.10); Basophils % (A) 0.6 %; Eosinophils # (A) 0.19 X 10*3/uL (0.04-0.35); Eosinophils % (A) 3.8 %; HCT 37.1 % (39.6-50.0); HGB 12.7 g/dL (13.0-17.0); Immature Grans, Automated 0.20 %; Immature Platelet Fraction 4.4 % (1.1-6.1); Lymphocytes # (A) 1.24 X 10*3/uL (0.90-5.00); Lymphocytes % (A) 24.7 %; MCH 33.0 pg (27.0-32.0); MCHC 34.2 g/dL (32.0-37.0); MCV 96.4 FL (80.0-97.0); Monocytes # (A) 0.44 X 10*3/uL (0.20-1.00); Monocytes % (A) 8.7 %; NRBC Per 100 WBC 0 X 10*3/uL (0.00-0.01); Neutrophils # (A) 3.12 X 10*3/uL (1.80-7.70); Neutrophils % (A) 62.0 %; Platelet Count 83 X 10*3/uL (140-440); RBC 3.85 X 10*6/uL (4.40-5.60); RDW 16.2 % (11.5-14.5); WBC 5.03 X 10*3/uL (4.50-10.00)
[2024-09-20] MEDS: NALTREXONE HCL 50 MG TAB PO SCH (08:49)
[2024-09-20 11:18] LABS: Anion Gap 13.10 mmol/L (4.00-12.00); BUN/Creat Ratio 12.33 Ratio (12.00-20.00); Blood Urea Nitrogen 11.1 mg/dL (9.0-27.0); Calcium 7.8 mg/dL (8.7-10.3); Carbon Dioxide 19.9 mmol/L (21.6-31.8); Chloride 106 mmol/L (96-109); Glucose 125 mg/dL (70-110); Magnesium 2.0 mg/dL (1.5-2.4); Potassium 3.6 mmol/L (3.5-5.5); Sodium 139 mmol/L (135-145)
[2024-09-20] MEDS: hydrOXYzine HCL 25 MG TAB PO PRN (13:24)
--- NOTE | 2024-09-20 19:32 | P.PN ---
Subjective Patient is a pleasant 54 years old male from home who presents because feeling tightness in his chest with shortness of breath and feeling weak for the last 2 days. Has been vomiting even with water. He denies abdominal pain or diarrhea. No urinary complaint or dysuria or urgency No headache dizziness weakness or numbness He also complains from chest pain like someone sitting on his chest about 4-5/10 severity central versus chest with no obvious precipitating or relieving factor with no coughing. He denies depression or homicidal or suicidal ideation. He wants to quit alcohol. He had diarrhea for 2 days yesterday but there was no blood. He is tachycardic, afebrile. Labs reviewed showing mild transaminitis. Troponin x 3 are negative. Chest x- ray showed no acute cardiopulmonary process. EKG shows a tachycardia [address]-T changes 70/12 Patient with no chest pain Still feels little sleepy and drowsy from his CIWA protocol with minimal withdrawal symptoms currently because of the treatment He still complain from some heartburns and indigestion although he reports improvement after he started with the Protonix His abdomen soft today. Will continue monitoring with guarded prognosis Objective - Vital Signs Vital signs: Vital Signs Temp 97.5 F L 09/20/24 07:42 Pulse 75 09/20/24 07:42 Resp 18 09/20/24 07:42 BP 107/63 09/20/24 07:42 Pulse Ox 98 09/20/24 07:42 FiO2 Intake & Output 09/19/24 09/20/24 09/20/24 18:59 06:59 18:59 Intake Total 0 Balance 0 Intake: Oral 0 Other: Voiding Method Toilet Toilet # Voids 1 3 # Bowel Movements 1 - Exam GENERAL: The patient is alert and oriented x3, not in any acute distress. Well developed, well nourished. HEENT: Pupils are round and equally reacting to light. EOMI. No scleral icterus. No conjunctival pallor. Normocephalic, atraumatic. No pharyngeal erythema. No thyromegaly. CARDIOVASCULAR: S1 and S2 present. No murmurs, rubs, or gallops. PULMONARY: Chest is clear to auscultation, no wheezing , no crackles. ABDOMEN: Soft, nontender, nondistended, normoactive bowel sounds. No palpable organomegaly. MUSCULOSKELETAL: No joint swelling or deformity. EXTREMITIES: No cyanosis, clubbing, or pedal edema. NEUROLOGICAL: Gross neurological examination did not reveal any focal deficits. SKIN: No rashes. no petechiae. - Labs CBC & Chem 7: 09/20/24 04:15 09/20/24 04:15 Labs: Abnormal Lab Results - Last 24 Hours (Table) 09/20/24 09/20/24 Range/Units 04:15 04:15 RBC 3.85 L (4.40-5.60) X 10*6/uL Hgb 12.7 L (13.0-17.0) g/dL Hct 37.1 L (39.6-50.0) % MCH 33.0 H (27.0-32.0) pg RDW 16.2 H (11.5-14.5) % Plt Count 83 L (140-440) X 10*3/uL Carbon Dioxide 19.9 L (21.6-31.8) mmol/L Anion Gap 13.10 H (4.00-12.00) mmol/L Glucose 125 H (70-110) mg/dL Calcium 7.8 L (8.7-10.3) mg/dL Assessment and Plan Assessment: Chest pain musculoskeletal, rule out cardiac causes. Cardiology signed off the case and cardiac causes ruled out Alcohol use disorder intoxication at risk of alcohol withdrawal Possible alcoholic gastritis/esophagitis Mild alcoholic transaminitis Hyperlipidemia Anxiety and depression Nicotine dependence he was counseled to quit he agrees but he declines nicotine patch Plan: Cardiology added metoprolol and sign of the case Continue with CIWA protocol and thiamine Add Protonix twice daily Continue Zofran. May add Reglan as needed if needed. If no improvement may consider further imaging or workup Continue close monitoring Continue with Librium Labs and medication were reviewed.. Continue same treatment. Continue with symptomatic treatment. Resume home medication. Monitor labs and vitals. DVT and GI prophylaxis. Further recommendations as per clinical course of the patient DVT prophylaxis: Subcutaneous heparin GI Prophylaxis: P Protonix Prognosis is guarded
[2024-09-20] MEDS: POTASSIUM CHLORIDE ER 20 MEQ TAB.ER PO STA (20:26)
[2024-09-21 09:36] LABS: Basophils # (A) 0.04 X 10*3/uL (0.00-0.10); Basophils % (A) 1.1 %; Eosinophils # (A) 0.24 X 10*3/uL (0.04-0.35); Eosinophils % (A) 6.5 %; HCT 34.3 % (39.6-50.0); HGB 11.9 g/dL (13.0-17.0); Immature Grans, Automated 0.50 %; Lymphocytes # (A) 1.08 X 10*3/uL (0.90-5.00); Lymphocytes % (A) 29.4 %; MCH 33.4 pg (27.0-32.0); MCHC 34.7 g/dL (32.0-37.0); MCV 96.3 FL (80.0-97.0); Monocytes # (A) 0.31 X 10*3/uL (0.20-1.00); Monocytes % (A) 8.4 %; NRBC Per 100 WBC 0 X 10*3/uL (0.00-0.01); Neutrophils # (A) 1.98 X 10*3/uL (1.80-7.70); Neutrophils % (A) 54.1 %; Platelet Count 82 X 10*3/uL (140-440); RBC 3.56 X 10*6/uL (4.40-5.60); RDW 15.9 % (11.5-14.5); WBC 3.67 X 10*3/uL (4.50-10.00)
[2024-09-21 10:02] LABS: Anion Gap 7.00 mmol/L (4.00-12.00); BUN/Creat Ratio 8.33 Ratio (12.00-20.00); Blood Urea Nitrogen 7.5 mg/dL (9.0-27.0); Calcium 8.1 mg/dL (8.7-10.3); Carbon Dioxide 25.0 mmol/L (21.6-31.8); Chloride 106 mmol/L (96-109); Glucose 113 mg/dL (70-110); Magnesium 1.9 mg/dL (1.5-2.4); Potassium 4.3 mmol/L (3.5-5.5); Sodium 138 mmol/L (135-145)
[2024-09-22 07:14] VITALS: RESP 16
--- NOTE | 2024-09-22 10:17 | P.CONS ---
History of Present Illness - Reason for Consult Consult date: 09/22/24 Gastritis, esophagitis Requesting physician: Chau E Sheet - Chief Complaint Alcohol withdrawal - History of Present Illness This a pleasant 54-year-old male with a history of alcoholism who admits to drinking a pint a day for the last 1 year duration prior to that he was 6 years sober and came into the emergency department 4 days ago with complaints of nausea vomiting and diarrhea. Patient states he had nausea and vomiting for 2 days and therefore he was not drinking he continued to have nausea and vomiting came into the emergency department secondary to complaints of chest pain and alcohol withdrawal symptoms. He was admitted with cardiology consultation which acute coronary event had been ruled out and patient was under [facility] protocol. He states he was having acid reflux and burning sensation in his chest secondary to all the vomiting. Gastroenterology was consulted for gastritis/esophagitis. He was started on Protonix 2 days ago and states that symptoms have completely resolved. He has had no further nausea and vomiting. He is tolerating his diet . Denies any previous history of peptic ulcer disease or GI bleed. He denies any abdominal pain, nausea or vomiting. Denies any hematemesis or melena. Current labs from 09/21/2024 WBC 3.6 hemoglobin 11.9 hematocrit 34 platelet count 82,000 sodium 138 potassium 4.3 BUN 7.5 creatinine 0.9. Admitting labs total bilirubin 3.6 AST 148 ALT 84 alkaline phosphatase 123 Review of Systems REVIEW OF SYSTEMS: CARDIOPULMONARY: No chest pain or shortness of breath. Presented with chest pain. Gastrointestinal: No abdominal pain. No nausea or vomiting, had nausea and vomiting 2 days prior to coming into the emergency department. No hematemesis, coffee-ground emesis. No rectal bleeding, or melena. GENITOURINARY: No dysuria or hematuria. MUSCULOSKELETAL: Reports normal range of motion. SKIN: No rashes. No jaundice. ENDOCRINE: No chills, fevers. No excessive weight gain or loss. No polydipsia or polyuria. PSYCHIATRIC: Alcohol dependence, daily alcohol use admits to 1 pint per day. NEUROLOGY: No change in mental status. Denies dizziness, headache. ENT: Vision unremarkable. CONSTITUTIONAL: No recent weight loss. No fever, chills, night sweats. Past Medical History Past Medical History: Hyperlipidemia Additional Past Medical History / Comment(s): HAD SEIZURES WHEN BABY STATED HE TOOK MEDS TILL ABOUT AGE 6-no seizures since History of Any Multi-Drug Resistant Organisms: None Reported Past Surgical History: Hernia Repair Additional Past Surgical History / Comment(s): RT INGUINAL HERNIA REPAIR skin ca removed lft shoulder Past Anesthesia/Blood Transfusion Reactions: No Reported Reaction Additional Past Anesthesia/Blood Transfusion Reaction / Comm: CLAUSTERPHOBIA Past Psychological History: ADD/ADHD, Anxiety, Depression Additional Psychological History / Comment(s): 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 NO PETS. NO SERVICE IN PAST. HAS WORKED [employer]. NO HOME CARES SERVICES, NO MEDICAL EQUIPMENT EXCEPT FOR BP MONITOR. Smoking Status: Current every day smoker, Vaper Past Alcohol Use History: Daily Additional Past Alcohol Use History / Comment(s): STARTED SMOKING AT AGE 17, SMOKES 1PPD. Past Drug Use History: None Reported - Past Family History Mother Family Medical History: Hypertension Father Family Medical History: No Reported History Medications and Allergies Home Medications Medication Instructions Recorded Confirmed Type hydrOXYzine HCL [Atarax] 25 mg PO BID PRN 11/20/23 09/18/24 History Atorvastatin [Lipitor] 10 mg PO DAILY 05/23/24 09/18/24 History Naltrexone Microspheres [Vivitrol] 380 mg IM Q28D 05/23/24 09/18/24 History Ergocalciferol (Vitamin D2) 1,250 mcg PO MO 06/23/24 09/18/24 History [Drisdol (50,000 Iu)] FLUoxetine HCL [PROzac] 40 mg PO DAILY 06/23/24 09/18/24 History Ondansetron Odt [Zofran Odt] 4 mg PO Q8HR PRN #10 tab 08/17/24 09/18/24 Rx Naltrexone HCl [Revia] 50 mg PO DAILY 09/18/24 09/18/24 History Allergies Allergy/AdvReac Type Severity Reaction Status Date / Time bupropion HCl Allergy Rash/Hives Verified 09/18/24 17:18 [From Wellbutrin] Penicillins Allergy Unknown Verified 09/18/24 17:18 Childhood Physical Exam Vitals: Vital Signs Temp Pulse Resp BP BP Pulse Ox 09/22/24 07:00 98.3 F 75 16 139/73 98 09/22/24 02:00 98 F 74 18 112/71 99 09/21/24 20:00 98.7 F 88 16 132/81 99 09/21/24 14:19 98.3 F 76 16 121/81 98 Intake and Output 09/21/24 09/22/24 09/22/24 22:59 06:59 14:59 Output Total 100 Balance -100 Output: Urine 100 Other: Voiding Method Toilet Toilet # Voids 2 General appearance: The patient is alert, oriented, appears in no acute distress. HET: Head is normocephalic and atraumatic. Conjunctiva pink. Sclera anicteric. Neck: Supple without lymphadenopathy. Trachea midline. Heart: Regular. Lungs: Equal expansion, normal respiratory effort. Abdomen: Soft, nontender, nondistended. Skin: No rashes. No jaundice. Extremities: Normal skin color and turgor. No pedal edema. Neurological: No focal deficits. Alert and oriented x3. Results CBC & Chem 7: 09/21/24 05:15 09/21/24 05:15 Labs: Abnormal Lab Results - Last 24 Hours (Table) 09/21/24 09/21/24 Range/Units 05:15 05:15 WBC 3.67 L (4.50-10.00) X 10*3/uL RBC 3.56 L (4.40-5.60) X 10*6/uL Hgb 11.9 L (13.0-17.0) g/dL Hct 34.3 L (39.6-50.0) % MCH 33.4 H (27.0-32.0) pg RDW 15.9 H (11.5-14.5) % Plt Count 82 L (140-440) X 10*3/uL BUN 7.5 L (9.0-27.0) mg/dL BUN/Creatinine Ratio 8.33 L (12.00-20.00) Ratio Glucose 113 H (70-110) mg/dL Calcium 8.1 L (8.7-10.3) mg/dL Assessment and Plan (1) Nausea & vomiting Narrative/Plan: 54-year-old male with nausea and vomiting for 2 days prior to admission then going into alcohol withdrawal symptoms. Unclear etiology of initial nausea and vomiting may be secondary to alcohol consumption. Had some complaints of acid reflux and burning sensation in chest which has resolved since nausea and vomiting resolved and was started on Protonix 40 mg twice daily. Likely patient dealing with alcohol gastritis secondary to nausea and vomiting. Continue with symptomatic treatment with Protonix 40 mg twice a day. Diet as tolerated. Avoid alcohol. Current Visit: Yes Status: Acute Code(s): R11.2 - NAUSEA WITH VOMITING, UNSPECIFIED SNOMED Code(s): 25170599 (2) Alcohol withdrawal syndrome Current Visit: Yes Status: Acute Code(s): F10.939 - ALCOHOL USE, UNSPECIFIED WITH WITHDRAWAL, UNSPECIFIED SNOMED Code(s): 432395368 (3) EtOH dependence Current Visit: Yes Status: Acute Code(s): F10.20 - ALCOHOL DEPENDENCE, UNCOMPLICATED SNOMED Code(s): 11575091 Plan: 1. Continue symptomatic and supportive care 2. Continue Protonix 40 mg twice daily 3. Recommend alcohol abstinence 4. No plans for endoscopy, symptoms resolved 5. Continue CIWA protocol Thank you for this consultation, patient is cleared from gastroenterology for discharge. Dr. Linnette Lyman I agree with the dictator's note, documented as a scribe by Hanna Garcia.
--- NOTE | 2024-09-22 14:44 | P.PN ---
Subjective Patient is a pleasant 54 years old male from home who presents because feeling tightness in his chest with shortness of breath and feeling weak for the last 2 days. Has been vomiting even with water. He denies abdominal pain or diarrhea. No urinary complaint or dysuria or urgency No headache dizziness weakness or numbness He also complains from chest pain like someone sitting on his chest about 4-5/10 severity central versus chest with no obvious precipitating or relieving factor with no coughing. He denies depression or homicidal or suicidal ideation. He wants to quit alcohol. He had diarrhea for 2 days yesterday but there was no blood. He is tachycardic, afebrile. Labs reviewed showing mild transaminitis. Troponin x 3 are negative. Chest x- ray showed no acute cardiopulmonary process. EKG shows a tachycardia [address]-T changes 70/12 Patient with no chest pain Still feels little sleepy and drowsy from his CIWA protocol with minimal withdrawal symptoms currently because of the treatment He still complain from some heartburns and indigestion although he reports improvement after he started with the Protonix His abdomen soft today. Will continue monitoring with guarded prognosis 09/21 pt withdrawal symptoms improving we will lower the dose of librium 25 mg to 10 mg [facility] gi consult for heartburn and persistent gi symptoms possible dc in 24 hours Objective - Vital Signs Vital signs: Vital Signs Temp 98.0 F 09/21/24 07:15 Pulse 64 09/21/24 07:15 Resp 16 09/21/24 07:15 BP 110/64 09/21/24 07:15 Pulse Ox 99 09/21/24 07:15 FiO2 Intake & Output 09/20/24 09/21/24 09/21/24 18:59 06:59 18:59 Intake Total 200 118 Balance 200 118 Intake: Oral 200 118 Other: Voiding Method Toilet # Voids 1 3 - Exam GENERAL: The patient is alert and oriented x3, not in any acute distress. Well developed, well nourished. HEENT: Pupils are round and equally reacting to light. EOMI. No scleral icterus. No conjunctival pallor. Normocephalic, atraumatic. No pharyngeal erythema. No thyromegaly. CARDIOVASCULAR: S1 and S2 present. No murmurs, rubs, or gallops. PULMONARY: Chest is clear to auscultation, no wheezing , no crackles. ABDOMEN: Soft, nontender, nondistended, normoactive bowel sounds. No palpable organomegaly. MUSCULOSKELETAL: No joint swelling or deformity. EXTREMITIES: No cyanosis, clubbing, or pedal edema. NEUROLOGICAL: Gross neurological examination did not reveal any focal deficits. SKIN: No rashes. no petechiae. - Labs CBC & Chem 7: 09/21/24 05:15 09/21/24 05:15 Labs: Abnormal Lab Results - Last 24 Hours (Table) 09/21/24 09/21/24 Range/Units 05:15 05:15 WBC 3.67 L (4.50-10.00) X 10*3/uL RBC 3.56 L (4.40-5.60) X 10*6/uL Hgb 11.9 L (13.0-17.0) g/dL Hct 34.3 L (39.6-50.0) % MCH 33.4 H (27.0-32.0) pg RDW 15.9 H (11.5-14.5) % Plt Count 82 L (140-440) X 10*3/uL BUN 7.5 L (9.0-27.0) mg/dL BUN/Creatinine Ratio 8.33 L (12.00-20.00) Ratio Glucose 113 H (70-110) mg/dL Calcium 8.1 L (8.7-10.3) mg/dL Assessment and Plan Assessment: Chest pain musculoskeletal, rule out cardiac causes. Cardiology signed off the case and cardiac causes ruled out Alcohol use disorder intoxication at risk of alcohol withdrawal Possible alcoholic gastritis/esophagitis Mild alcoholic transaminitis Hyperlipidemia Anxiety and depression Nicotine dependence he was counseled to quit he agrees but he declines nicotine patch Plan: Cardiology added metoprolol and sign of the case Continue with CIWA protocol and thiamine Add Protonix twice daily Continue Zofran. May add Reglan as needed if needed. If no improvement may consider further imaging or workup Continue close monitoring Continue with Librium Labs and medication were reviewed.. Continue same treatment. Continue with symptomatic treatment. Resume home medication. Monitor labs and vitals. DVT and GI prophylaxis. Further recommendations as per clinical course of the patient DVT prophylaxis: Subcutaneous heparin GI Prophylaxis: P Protonix Prognosis is guarded
[2024-09-22 19:41] VITALS: BP 104/54; PULSE 59; TEMP 98
== END 2024-09-22 12:25 | disposition home or self-care (01) | DRG 241 ==
LOC: EC 13:13 → 6NMEDSUR 15:03 → OBSVTOIN 15:04 → 6NMEDSUR 18:51
PROVIDERS: ADMIT Internal Medicine; ATTEND Internal Medicine
DX: K29.20 Alcoholic gastritis without bleeding (principal); F10.239 Alcohol dependence with withdrawal, unspecified; F10.229 Alcohol dependence with intoxication, unspecified; F32.A Depression, unspecified; E78.5 Hyperlipidemia, unspecified; R74.01 Elevation of levels of liver transaminase levels; F41.9 Anxiety disorder, unspecified; K20.80 Other esophagitis without bleeding; F17.290 Nicotine dependence, other tobacco product, uncomplicated; F17.210 Nicotine dependence, cigarettes, uncomplicated; Z79.899 Other long term (current) drug therapy
CPT/HCPCS: 36415; 71046; 80048; 80053; 83735; 84484; 85025; 85610; 85730; 93005; 96361; 96374; 96375; 96376; 99285